=== PATIENT | male | born 1935 | race Caucasian/White ===

== ENCOUNTER 2024-01-24 14:19 | Emergency (ER) | payer OTHER, SELFPAY ==
[2024-01-24 14:31] VITALS: BP 188/88
[2024-01-24 15:09] LABS: ALT (SGPT) 21 U/L (0-50); AST (SGOT) 28 U/L (17-59); Albumin 4.5 g/dl (3.5-5.0); Alkaline Phosphatase 77 U/L (38-126); Blood Urea Nitrogen 21 mg/dl (9-20); Calcium 9.5 mg/dl (8.4-10.2); Carbon Dioxide 26 mmol/L (22-30); Chloride 108 mmol/L (98-107); Glucose 106 mg/dl (70-99); Potassium 4.4 mmol/L (3.5-5.1); Sodium 137 mmol/L (135-145); Total Bilirubin 1.3 mg/dl (0.2-1.3); Total Protein 7.2 g/dl (6.3-8.2); eGFR > 60.00
[2024-01-24 15:26] LABS: Troponin I 0.014 ng/ml
[2024-01-24 16:27] VITALS: BP 181/81
[2024-01-24 16:43] LABS: % Basophils 0.7 % (0-2); % Eosinophils 2.1 % (0-6); % Immature Granulocytes 0.3 % (0-0.5); % Lymphocytes 24.8 % (20.5-51.1); % Monocytes 11.6 % (1.7-9.3); % Neutrophils 60.5 % (42.2-75.2); Absolute Eosinophils 0.1 10^3/uL (0-0.7); Absolute Lymphocytes 1.4 10^3/uL (1.2-3.4); Absolute Monocytes 0.7 10^3/uL (0.1-0.6); Absolute Neutrophils 3.5 10^3/uL (1.4-6.5); Hematocrit 44.2 % (39.0-52.0); Hemoglobin 15.8 g/dL (13.0-18.0); Mean Corp Hgb Conc. 35.7 g/dL (33.0-37.0); Mean Corpuscular Hgb 32.8 pg (27.0-31.0); Mean Corpuscular Volume 91.9 fL (80.0-94.0); Mean Platelet Volume 11.5 fL (7.4-10.4); Nucleated Red Blood Cells % 0 % (-); Platelet Count 109 10^3/uL (130-400); Red Blood Cell Count 4.81 10^6/uL (4.70-6.10); Red Cell Dist. Width 12.5 % (11.5-14.5); White Blood Cell Count 5.8 10^3/uL (4.8-10.8)
[2024-01-24 16:47] LABS: INR 3.08; PT 31.8 Sec (11.4-14.6)
[2024-01-24 17:00] VITALS: BP 170/82
[2024-01-24 17:30] VITALS: BP 165/81
--- NOTE | 2024-01-24 17:30 | ED.GENMED ---
History of Present Illness
General
Chief Complaint: Chest Pain
Source: patient and spouse
Exam Limitations: none
Time Seen by Provider: 01/24/24 16:35
Nursing documentation reviewed up to this point in time: agreed with
Travel History
Have you had any contact with someone who has COVID-19?: No
Do you have any symptoms of coronavirus? Fever > 100 degrees, chills, cough, shortness of breath, sore throat, loss of taste or smell, muscle aches, or headache?: No
History of Present Illness
History of Present Illness:
88-year-old male with a past medical history of hypertension, hyperlipidemia, CAD status post CABG (15 years ago [place]), PE on Coumadin who presents to the emergency room for evaluation of chest pain. Patient reports onset of symptoms 3 to 4
days ago they have been intermittent since that time. He reports that there has been no exertional component he says he does not notice it with exertion and only with rest. Today symptoms have been intermittent at rest he says 3-4 episodes this
afternoon. He is currently chest pain-free at time my assessment. He describes dull sometimes burning sensation in the left chest radiates towards left arm. He denies any associated shortness of breath. Denies any dizziness. Denies any
palpitations. Denies any clamminess, nausea, vomiting, diaphoresis. He reports he is also noticed that his blood pressure has been running higher than usual over the past few days despite compliance with his medications.
Past History
Past History
ED Past Medical History: CAD, GERD, HTN, Hypercholesterolemia and Other (hiatal hernia, PE)
ED Past Surgical History: Cardiac (CABG 2012), Orthopedic (Lumbar fusion), Urological (Prostatectomy) and Other (Mouth growth removed, esophageal procedure to fix a tear)
Patient has exhibited threatening behavior?: No
PSI?: No
Social History
Tobacco: Non-smoker
Alcohol: None
Drug: None
Personal:
Living: with family
Employment: Retired
Family History
Family History: Hypertension
Review of Systems
Review of Systems
All Other Systems: ROS reviewed and negative except as documented in HPI and ROS
Constitutional: Denies fever or chills
EENT: Denies sore throat or runny nose
Respiratory: Denies cough or trouble breathing
Cardiac: Reports chest pain; Denies diaphoresis or palpitations
ABD/GI: Denies abdominal pain, nausea or vomiting
: Denies flank pain
Musculoskeletal: Denies neck pain or back pain
Neurological: Denies dizzy, headache, weakness or numbness
Phy Exam
Physical Exam
Physical Exam:
General: Awake, alert, oriented x3; no acute distress
Head: Normocephalic, atraumatic
Eyes: Conjunctiva normal, sclera anicteric
Throat: Airway intact, handling secretions
Neck: Trachea midline, supple without meningismus
Lungs: Clear to auscultation bilaterally, no wheezing, rales, rhonchi
Heart: Regular rate and rhythm, no murmurs, gallops, or rubs
Abd: Soft, non distended, nontender
Neuro: Cranial nerves grossly intact, speech fluid
Skin: no rash
Extremities: No edema in extremities, equal pulses in all extremities
Scores
Heart Failure Risk
Heart Failure Risk Score: Not Applicable
Heart Score for Chest Pain Patients
STEMI patient?: No
History: Moderately Suspicious
ECG: Normal
Age: >/= 65 years
Risk Factors: >/= 3 Risk Factors or History of CAD
Troponin: </= Normal Limit
Heart Score for Chest Pain Patients: 5
Heart Score Risk: 20.3% MACE over next 6 weeks
Withdrawal Assessment of Alcohol
Withdrawal Assessment Completed?: Not applicable
Course
Orders/Labs/Results
Orders:
Orders
01/24/24
Electrocardiogram (*1) Stat
Comment: ALREADY DONE
01/24/24 14:20
Electrocardiogram (*1) Urgent
Reason for Study: Chest Pain
EKG- Treatment ONCE
01/24/24 14:43
Comprehensive Metabolic Panel Urgent
Troponin I Urgent
01/24/24 16:25
Complete Blood Count/With Diff Urgent
Prothrombin Time Urgent
01/24/24 16:41
Electrocardiogram (*1) Urgent
Reason for Study: Chest Pain
EKG- Treatment ONCE
01/24/24 17:06
CR Chest - 2 Views Urgent
Comment:
Reason For Exam: cp
01/24/24 17:27
CARDIOLOGY CONSULT Urgent
Consulting Provider: Gabe Mathew
Was physician already notified: Yes
01/24/24 17:54
Troponin I Urgent
Abnormal Lab Results
01/24/2418
14:43 16:25
MCH 32.8 H pg
(27.0-31.0)
Plt Count 109 L 10^3/uL
(130-400)
MPV 11.5 H fL
(7.4-10.4)
Absolute Monos (auto) 0.7 H 10^3/uL
(0.1-0.6)
Monocytes % 11.6 H %
(1.7-9.3)
PT 31.8 H Sec
(11.4-14.6)
Chloride 108 H mmol/L
(98-107)
BUN 21 H mg/dl
(9-20)
Glucose 106 H mg/dl
(70-99)
01/24/24 16:25
01/24/24 14:43
Vital Signs
Initial and Last Documented VS:
Initial Vital Signs
Temp Pulse Resp BP Pulse Ox
36.4 C 58 18 188/88 98
03/18/24 14:31 01/24/24 14:31 01/24/24 14:31 01/24/24 14:31 01/24/24 14:31
Last Documented Vital Signs
Temp Pulse Resp BP Pulse Ox
36.4 C 51 16 165/81 99
01/24/24 14:31 01/24/24 17:30 01/24/24 16:27 01/24/24 17:30 01/24/24 17:15
MDM/Problems Addressed
Differential Diagnosis Includes:
ACS/angina, GERD, costochondritis, PE unlikely patient on Coumadin, very low clinical suspicion for acute aortic syndrome despite his hypertension
MDM/Problems Addressed:
88-year-old male with history as above presents for evaluation of chest pain intermittently over the past 3 to 4 days. He is hypertensive but vital signs otherwise normal. EKG shows no STEMI. Exam as above. Plan to place an IV check labs
including CBC and CMP, troponin, INR. Check chest x-ray. Monitor closely reassess after the above.
Labs reviewed: CBC unremarkable, CMP no clinically significant maladies. Troponin negative x 1�repeat pending. HEART score 5.
Repeat troponin negative. Patient has remained chest pain-free. Blood pressure improved without intervention. Case discussed with cardiology�with history of CAD admit to their service with consideration for stress versus cardiac catheterization
tomorrow. I had a long discussion with the patient and explained the recommendation. He is adamant that he does not want to stay in the hospital prefers to go home and follow-up as an outpatient he will return if he feels the symptoms are getting
worse. I did explain concern for potentially worsening anginal symptoms and that these could progress to acute [place]. He indicated understanding says that he prefers to go home and follow-up outpatient. He did assure me that if his symptoms are
worsening or persistent he will return immediately to the emergency room but otherwise we will touch base with his cardiology team tomorrow. Using shared decision making we will discharge with close cardiology follow-up and strict return
precautions in keeping with his wishes.
Chronic conditions affecting care:
CAD
Acute Exacerbation and/or Progression of Chronic Illness:
Acutely hypertensive
*Radiology
Radiology exam reviewed: preliminary read by ED provider and radiology read reviewed
*Pulse Oximetry
Patient hypoxic: no
*EKG
Interpreted by ED Provider?: Yes
Heart Rate: 52
Rate: bradycardiac
Rhythm: sinus
[place]: left axis deviation
Interval: normal interval
QRS Pattern: normal QRS
Ischemia: no ischemia
*Critical Care Note
Total Time (30-74mins, 75-104mins- exclusive of procedures): Not Applicable
Data Reviewed
Source: patient
Patient Management
Discussion with other providers: Property Specialist (Discussed with cardiology)
Escalation/DeEscalation of care consider admission/obs:
Recommended admission but patient prefers discharge�using shared decision making he was discharged in keeping with his wishes
ED Attending Note
-
Portions of this chart may have been created with voice recognition software.� Occasional wrong word or��sound alike� substitutions may have occurred due to the inherent limitations of voice recognition software.
Discharge Plan
Departure
Patient Disposition: Home (Routine Discharge)
Date of Disposition: 01/24/24
Time of Disposition: 19:30
Patient with high blood pressure during this ER visit?: Yes
Discharge Problem:
Chest pain, Hypertension
Instructions: High Blood Pressure (DC), Chest Pain CBC Follow Up
Prescriptions:
No Action
TheraTears 1 EACH dropperette
1 drp BOTH EYES BIDPRN PRN (Reason: dryness)
nitroglycerin 0.4 MG tablet, sublingual
0.4 mg sublingual [id number] PRN (Reason: chest pain ) Qty: 25 3RF
atorvastatin [Lipitor] 20 MG tablet
20 mg PO HS
acetaminophen [Tylenol Extra Strength] 500 MG tablet
500 mg PO Q6HPRN PRN (Reason: mild pain)
warfarin [Jantoven] 5 MG tablet
5 mg PO SUTUTHSA
Probiotic (B. coagulans) 1 EACH tablet,chewable
2 ea PO DAILY@1700 PRN (Reason: Supplement)
warfarin [Jantoven] 2.5 MG tablet
2.5 mg PO MOWEFR
losartan 100 MG tablet
100 mg PO DAILY
pantoprazole 40 MG tablet,delayed release (DR/EC)
40 mg PO DAILY Qty: 0 0RF
Referrals:
Paul Desir MD [Family Provider] -
Nasir Small MD [Active] - Follow up in 2-3 days
Activity Restrictions/Additional Instructions:
IF YOU FEEL YOUR CHEST PAIN IS WORSENING, BECOMING MORE SEVERE OR LASTING LONGER, OR IF YOU DEVELOP NEW SYMPTOMS INCLUDING SHORTNESS OF BREATH, DIZZINESS, RACING HEART, OR ANY OTHER SYMPTOMS THAT CONCERN YOU, YOU MUST IMMEDIATELY RETURN TO THE
EMERGENCY ROOM. IF YOU DO NOT HEAR FROM YOUR CARDIOLOGY TEAM BY TOMORROW MORNING, PLEASE CALL TO CONFIRM YOUR FOLLOW UP APPOINTMENT.
Thank you for visiting the Emergency Department at [facility].
1. Please schedule a follow up appointment as directed. Call first thing tomorrow morning to make an appointment.
2. If indicated, please take your medications as instructed and indicated on discharge paperwork.
3. If any of your symptoms do not improve, or persist, or become more severe within 6-12 hours, please return to the emergency department for further care.
4. Please return to the emergency department if you develop a headache, neck pain/stiffness, fever greater than 100.4F, chest pain, shortness of breath, persistent nausea, vomiting, slurred speech, difficulty walking, numbness/tingling, weakness,
signs of infection or any other symptoms that are worrisome to you.
Please call [phone] if you have any questions.
Interventions
Interventions:
*Risk Screen - Suicide Last Done: 01/24/24 14:33
*General Assessment Last Done: 01/24/24 14:33
*Neglect/Abuse Screening Last Done: 01/24/24 14:33
ED- Fall Risk Assessment Last Done: 01/24/24 16:30
ED- Cardiac Assessment Last Done: 01/24/24 16:30
ED- Neurological Assessment Last Done: 01/24/24 16:30
ED- Pulmonary Assessment Last Done: 01/24/24 16:30
[2024-01-24 18:32] LABS: Troponin I < 0.012 ng/ml
[2024-01-24 20:08] VITALS: BP 158/84
== END 2024-01-24 20:09 | disposition home or self-care (01) ==
LOC: EMR 14:19
PROVIDERS: Emergency Medicine; CONSULT PHYSICIAN Internal Medicine; EMERGENCY PHYSICIAN Emergency Medicine; FAMILY PHYSICIAN Family Medicine
DX: R07.9 Chest pain, unspecified (principal); I10 Essential (primary) hypertension; I25.10 Atherosclerotic heart disease of native coronary artery without angina pectoris; Z95.1 Presence of aortocoronary bypass graft; Z79.01 Long term (current) use of anticoagulants
CPT/HCPCS: 99285; 71046; 80053; 84484; 85025; 85610; 93005

== ENCOUNTER → 2024-01-27 06:54 | Outpatient (REF) | payer OTHER, SELFPAY ==
[2024-01-27] MEDS: LEXISCAN 0.400000000000000022 MG IV (08:51)
[2024-01-27] MEDS: FLUSH (NSS) 1 FLUSH IV (08:51)
== END ==
LOC: RCS 06:54
PROVIDERS: ATTENDING PHYSICIAN Nurse Practitioner; FAMILY PHYSICIAN Family Medicine
DX: I25.810 Atherosclerosis of coronary artery bypass graft(s) without angina pectoris (principal); I25.10 Atherosclerotic heart disease of native coronary artery without angina pectoris; R07.89 Other chest pain
CPT/HCPCS: 78452; 93017; A9500; J2785

== ENCOUNTER 2024-02-06 11:30 | Observation (INO) | payer OTHER, SELFPAY ==
[2024-02-06] VITALS (13 sets, daily range): BP systolic 135–186; BP diastolic 71–94
--- NOTE | 2024-02-06 06:46 | ED.GENMED ---
History of Present Illness
General
Chief Complaint: Abdominal Symptoms
Source: patient, records and spouse
Exam Limitations: none
Time Seen by Provider: 02/06/24 06:34
Nursing documentation reviewed up to this point in time: agreed with
Travel History
Have you had any contact with someone who has COVID-19?: No
Do you have any symptoms of coronavirus? Fever > 100 degrees, chills, cough, shortness of breath, sore throat, loss of taste or smell, muscle aches, or headache?: No
History of Present Illness
History of Present Illness:
Patient is an 88-year-old male who presents to the emergency department with nausea, vomiting and diarrhea and right-sided abdominal pain. Patient states he had some of it about a week ago but then last night became worse. Patient has a headache
as well as twinges in his chest and minimal shortness of breath. Patient has a history of a bowel obstruction secondary to adhesions with repair approximately 3 years ago. Patient states he is nauseous when he eats anything he vomits it. Stools
liquidy. Patient denies fever. Patient was seen 2 weeks ago for chest pain and subsequently had a nuclear stress test which had moderate risk. Patient's had bypass surgery in the past. Patient is scheduled for cardiac catheterization.
Past History
Past History
ED Past Medical History: CAD, GERD, HTN, Hypercholesterolemia and Other (hiatal hernia, PE)
ED Past Surgical History: Cardiac (CABG 2012), Orthopedic (Lumbar fusion), Urological (Prostatectomy) and Other (Mouth growth removed, esophageal procedure to fix a tear)
Patient has exhibited threatening behavior?: No
PSI?: No
Social History
Tobacco: Non-smoker
Alcohol: None
Drug: None
Personal:
Living: with family
Employment: Retired
Family History
Family History: Hypertension
Review of Systems
Review of Systems
All Other Systems: ROS reviewed and negative except as documented in HPI and ROS
Constitutional: Reports fatigue and chills; Denies fever
EENT: Reports no symptoms
Respiratory: Reports trouble breathing
Cardiac: Reports chest pain and diaphoresis; Denies palpitations or syncope
ABD/GI: Reports abdominal pain, nausea, vomiting, diarrhea and anorexia
: Reports no symptoms
Musculoskeletal: Reports no symptoms
Skin: Reports no symptoms
Neurological: Reports no symptoms
Hematologic/Lymphatic: Reports no symptoms
Phy Exam
Physical Exam
Physical Exam:
Physical Exam
General: significant distress, alert and appropriate, well nourished, dry mucous membranes
HENT: Normocephalic, supple with no lymphadenopathy, no thyromegaly
Eyes: Clear sclera, conjuctiva without injection
Heart: Regular rhythm and rate. No S3, S4. No murmur. No NVD
Lungs: No respiratory distress, no stridor, lung sounds clear and equal bilaterally, chest wall symmetrical and nontender
Abdomen: Soft, right-sided abdominal tenderness without guarding or rebound, no organomegaly, no CVA tenderness, BS hyperactive and high-pitched
Neuro: Alert and oriented x 3, CN II - XII intact, no motor focality, no cerebellar dysfunction
Skin: no rash
Psychiatric: well kept. interactive and cooperative
Extremities: No edema, cyanosis, tenderness
Course
Orders/Labs/Results
Orders:
Orders
02/06/24 06:21
Electrocardiogram (*1) Urgent
Reason for Study: Chest Pain
EKG- Treatment ONCE
02/06/24 06:44
CT Abd/Pel (IV only)-DH only Urgent
Comment:
Reason For Exam: abd pain w/ n/v
0.9% Sodium Chloride 1000 ml [Nss] 1,000 ml IV BOLUS
HYDROmorphone [Dilaudid] 1 mg IV NOW STA
Ondansetron Injectable [Zofran] 4 mg IV NOW STA
02/06/24 06:49
Complete Blood Count/With Diff Urgent
Comprehensive Metabolic Panel Urgent
Lipase Urgent
Troponin I Urgent
Abnormal Lab Results
02/06/24
06:49
MCV 94.5 H fL
(80.0-94.0)
MCH 32.3 H pg
(27.0-31.0)
Plt Count 123 L 10^3/uL
(130-400)
MPV 10.5 H fL
(7.4-10.4)
Abs Immat Gran (auto) 0.1 H 10^3/uL
(0-0.05)
Absolute Lymphs (auto) 0.4 L 10^3/uL
(1.2-3.4)
Immature Gran % 0.7 H %
(0-0.5)
Neutrophils % 83.0 H %
(42.2-75.2)
Lymphocytes % 6.3 L %
(20.5-51.1)
BUN 32 H mg/dl
(9-20)
Glucose 142 H mg/dl
(70-99)
Total Bilirubin 1.6 H mg/dl
(0.2-1.3)
Lipase 301 H U/L
(23-300)
02/06/24 06:49
02/06/24 06:49
Vital Signs
Initial and Last Documented VS:
Initial Vital Signs
Temp Pulse Resp BP Pulse Ox
98.2 F 89 22 135/86 100
02/06/24 06:22 02/06/24 06:22 02/06/24 06:22 02/06/24 06:22 02/06/24 06:22
Last Documented Vital Signs
Temp Pulse Resp BP Pulse Ox
98.2 F 73 17 173/74 94
02/06/24 06:22 02/06/24 08:45 02/06/24 08:45 02/06/24 08:29 02/06/24 08:45
*Radiology
Radiology exam reviewed: radiology read reviewed (sbo)
*Pulse Oximetry
Patient hypoxic: no
*EKG
Interpreted by ED Provider?: Yes
EKG Intrepretation Date: 02/06/24
EKG Intrepretation Time: 09:04
Interpretation: abnormal
Comparison EKG: changes noted (ST depressions inferiorly)
Heart Rate: 71
Rate: normal
Rhythm: sinus
[place]: left axis deviation
Interval: normal interval
QRS Pattern: normal QRS
Ischemia: ST depression (Inferiorly)
*Supervisor Type Bar And Segment Interpretation
Rate: normal
Interpretation: normal
Heart Rate: 70
Rhythm: sinus
*Critical Care Note
Total Time (30-74mins, 75-104mins- exclusive of procedures): Not Applicable
ED Attending Note
-
Portions of this chart may have been created with voice recognition software.� Occasional wrong word or��sound alike� substitutions may have occurred due to the inherent limitations of voice recognition software.
Discharge Plan
Departure
Patient Disposition: Admit
Date of Disposition: 02/06/24
Time of Disposition: 09:05
Admit to: Telemetry
Admit to doctor: hospitalist
Presentation/result/management discussed w/ accepting MD/DO: Hospitalist
Patient with high blood pressure during this ER visit?: Yes
Condition: Serious
Covid-19: Not Applicable
Discharge Problem:
SBO (small bowel obstruction), CAD (coronary artery disease)
Prescriptions:
No Action
TheraTears 1 EACH dropperette
1 drp BOTH EYES BIDPRN PRN (Reason: dryness)
nitroglycerin 0.4 MG tablet, sublingual
0.4 mg sublingual [id number] PRN (Reason: chest pain ) Qty: 25 3RF
atorvastatin [Lipitor] 20 MG tablet
20 mg PO HS
acetaminophen [Tylenol Extra Strength] 500 MG tablet
500 mg PO Q6HPRN PRN (Reason: mild pain)
warfarin [Jantoven] 5 MG tablet
5 mg PO SUTUTHSA
Probiotic (B. coagulans) 1 EACH tablet,chewable
2 ea PO DAILY@1700 PRN (Reason: Supplement)
warfarin [Jantoven] 2.5 MG tablet
2.5 mg PO MOWEFR
losartan 100 MG tablet
100 mg PO DAILY
pantoprazole 40 MG tablet,delayed release (DR/EC)
40 mg PO DAILY Qty: 0 0RF
Referrals:
Paul Desir MD [Family Provider] -
Interventions
Interventions:
*Risk Screen - Suicide Last Done: 02/06/24 08:49
*General Assessment Last Done: 02/06/24 06:22
*Neglect/Abuse Screening Last Done: 02/06/24 08:49
ED- Fall Risk Assessment Last Done: 02/06/24 08:49
*ED COVID-19 Vaccine History Last Done: 02/06/24 06:22
XY-Gysugf-Yrghpnwhrd Assessment Last Done: 02/06/24 08:49
Discharge Date and Time
Print Language: LATVIAN
[2024-02-06] MEDS: ZOFRAN 4 MG IV ×2 (07:02→20:35)
[2024-02-06] MEDS: DILAUDID 1 MG IV (07:04)
[2024-02-06] MEDS: NSS 1000 IV ×2 (07:05→16:45)
[2024-02-06 07:13] LABS: % Basophils 0.3 % (0-2); % Eosinophils 0.6 % (0-6); % Immature Granulocytes 0.7 % (0-0.5); % Lymphocytes 6.3 % (20.5-51.1); % Monocytes 9.1 % (1.7-9.3); Absolute Immature Granulocytes 0.1 10^3/uL (0-0.05); Absolute Lymphocytes 0.4 10^3/uL (1.2-3.4); Absolute Monocytes 0.6 10^3/uL (0.1-0.6); Absolute Neutrophils 5.7 10^3/uL (1.4-6.5); Hematocrit 51.5 % (39.0-52.0); Hemoglobin 17.6 g/dL (13.0-18.0); Mean Corp Hgb Conc. 34.2 g/dL (33.0-37.0); Mean Corpuscular Hgb 32.3 pg (27.0-31.0); Mean Corpuscular Volume 94.5 fL (80.0-94.0); Mean Platelet Volume 10.5 fL (7.4-10.4); Nucleated Red Blood Cells % 0 % (-); Platelet Count 123 10^3/uL (130-400); Red Blood Cell Count 5.45 10^6/uL (4.70-6.10); Red Cell Dist. Width 12.4 % (11.5-14.5); White Blood Cell Count 6.9 10^3/uL (4.8-10.8)
[2024-02-06 07:24] LABS: ALT (SGPT) 20 U/L (0-50); AST (SGOT) 30 U/L (17-59); Albumin 4.7 g/dl (3.5-5.0); Alkaline Phosphatase 79 U/L (38-126); Blood Urea Nitrogen 32 mg/dl (9-20); Calcium 10.1 mg/dl (8.4-10.2); Carbon Dioxide 24 mmol/L (22-30); Chloride 106 mmol/L (98-107); Glucose 142 mg/dl (70-99); Lipase 301 U/L (23-300); Potassium 3.9 mmol/L (3.5-5.1); Sodium 139 mmol/L (135-145); Total Bilirubin 1.6 mg/dl (0.2-1.3); Total Protein 7.4 g/dl (6.3-8.2); eGFR > 60.00
[2024-02-06 07:28] LABS: Troponin I < 0.012 ng/ml
--- NOTE | 2024-02-06 10:24 | HPS.HSE ---
Family Physician
-
Family Physician: Paul Desir
Chief Complaint
-
Abdominal pain, chest pain
History of Present Illness
88 y/o male with past medical history of Schatzki's ring status post EGD dilation in May 2023, gastroparesis, non-intentional weight loss, dysphagia, esophageal stricture with last dilation 05/2023, CAD with [place] and CABG 2012, PE in 2019 on warfarin
on chronic Coumadin, HTN, HLD, prior SBO's with SBO requiring surgery 03/2021 with ex lap/sbr, SBO with lysis of adhesion, left hernia repair 2020, presenting with nausea, abdominal pain and green diarrhea. Patient also reported he had chest pain a
couple of weeks ago, for which he had a stress test which showed moderate risk nuclear stress test and he was supposed to get a cardiac cath. Patient reported continued unintentional weight loss. He denied current active chest pain but has recently
been worked up for chest pain. ROS was positive for weight loss and slight headache.
Medical History
Past Medical History
Past Medical History: Reports Other (As per HPI above)
Past Surgical History: Reports Cardiac, Orthopedic, Urological and Other (Lysis of Adhesions after SBO. Mouth growth removed, esophageal procedure to fix a tear.)
Social History
Tobacco: Non-smoker
Alcohol: Occasional
Drug: None
Family History
Family History: CAD
Allergies / Home Medications
Allergies reflects when Allergies were last updated in [employer].
Home Medications with original date entered in [employer]
Allergy/Medication List:
Allergies
Allergy/AdvReac Type Severity Reaction Status Date / Time
promethazine [From Phenergan] AdvReac hallucinati Verified 01/24/24 14:31
ons
Home Medications
atorvastatin 20 mg tablet (Lipitor) 10 mg PO HS High cholesterol 03/27/22
warfarin 5 mg tablet (Jantoven) 5 mg PO SUTUTHSA Blood clot prevention/tx 03/27/22
warfarin 2.5 mg tablet (Jantoven) 2.5 mg PO MOWEFR Blood clot prevention/tx 03/28/22
losartan 100 mg tablet 100 mg PO DAILY Blood Pressure 05/31/23
pantoprazole 40 mg tablet,delayed release 40 mg PO DAILY Gastrointestinal Issue #0 tabs 06/04/23
Review of Systems
-
A 12 point ROS was completed and negative except as noted: Yes
Physical Exam
Vital Signs
Vital Signs
Temp Pulse Resp BP Pulse Ox
98.2 F 73 17 173/74 94
02/06/24 06:22 02/06/24 08:45 02/06/24 08:45 02/06/24 08:29 02/06/24 08:45
Physical Exam
General: No Apparent Distress
HEENT: NormoCephalic and Moist mucous membranes
Respiratory: Clear
Cardiac: S1/S2 and Regular Rhythm
GI: Soft, Normal Bowel Sounds and Tender
Musculoskeletal: No Cyanosis and No Edema
Skin: Warm and Dry
Neuro: Awake, Alert and AO x 3
Psych: Calm and Intact Judgment/Insight
Laboratory Results
-
02/06/24 06:49
02/06/24 06:49
Laboratory Results
Total Bilirubin 1.6 mg/dl (0.2-1.3) H 02/06/24 06:49
AST 30 U/L (17-59) 02/06/24 06:49
ALT 20 U/L (0-50) 02/06/24 06:49
Alkaline Phosphatase 79 U/L (38-126) 02/06/24 06:49
Troponin I < 0.012 ng/ml 02/06/24 06:49
Lipase 301 U/L (23-300) H 02/06/24 06:49
Impression/Plan
-
Assessment/Plan
Presentation with nausea/vomiting/abdominal pain/bloating/diarrhea
History of Small Bowel Obstruction status post Lysis of Adhesions
Gastroenteritis/ileus versus small bowel obstruction
History of Gastroparesis
-Surgery Consulted, recommendations appreciated
-Check trops; ST depression on EKG
-Consulted cardiology, recommendations appreciated
-Hold Warfarin as per surgery
Recent Chest Pain a Few Weeks Ago
-Stress test was done had a moderate risk nuclear stress test and he is scheduled for cardiac catheterization
-Consulted cardiology, recommendations appreciated
Nonintentional Weight Loss, Abdominal Pain, Dysphagia in May 2023 [facility] Hospitalization
-Multifactorial
-Will need further workup outpatient
Additional History:
Eosinophilic Esophagitis
Schatzki's ring status post EGD dilation in May 2023
Weight loss and abdominal discomfort.
History of pulmonary embolism in 2019 on Chronic Coumadin - Check INR
Essential hypertension.
Hyperlipidemia.
Coronary artery disease, status post coronary bypass grafting.
DVT PPx: SCDs (patient refused any Heparin -- but this should be re-evaluated daily)
Code Status: Full Code
--- NOTE | 2024-02-06 13:20 | CON.GS ---
Addendum entered and electronically signed by Teofilo Concepcion MD 02/06/24 14:01:
I saw and examined the patient.
The Capture Manager's note was reviewed and I agree with the note.
Comment: 88M with NVD for over a week a/w abd pain. Abd pain is not localized. He is passing flatus with the liquid stools. He has a known hx of gastroparesis. He also has a hx of SBO requiring ex-lap SBR about 3 years ago. Also had presented in
the past week with left chest pain and is currently undergoing a cardiac work-up outpt. He is on warfarin. Exam soft, mildly distended, nt, he reports nausea with palp to LUQ. No leukocytosis. CT notable for severe gastric distention, proximal bowel
is normal but distally it is dilated, mosis is patent, no clear transition point, air and stool in the colon down to the rectum.
Plan for admission and monitoring, rec NGT/NPO/IVF. Consider PO contrast study in the next 24-48 hrs. Hold warfarin but no need for urgent reversal. Suspect gastroenteritis w/ gastroparesis, less likely pSBO. Will follow
Original Note:
Medical History
-
History of Present Illness:
This is an 88 yo male with h/o gastroparesis, esophageal stricture with last dilation 05/2023, CAD with [place] and CABG 2012 (recent stress testing without abnormality), PE in 2019 on warfarin, prior SBO's with SBO requiring surgery 03/2021 with ex
lap/sbr, left hernia repair 2020, presenting with nausea and vomiting with abdominal pain. He notes pain to the right side of the abdomen with both diarrhea and vomiting at home. He had nausea intermittently for about one week, but now with vomiting
as well. He has had 6 liquid stools today. On exam, his abdomen with very mild distention with mild tenderness to the upper abdomens. He notes he is still quite nauseated. He denies fevers or chills. He does report chest pain as well and has been
following with cardiologic for work up.
Past Medical History
Past Medical History: CAD, GERD, HTN, Hypercholesterolemia and Other (hiatal hernia, PE, gastroperesis, SBO, eosinophilic esophagitis)
Past Surgical History: Bowel Resection (dx lap with ex lap with timothy, sbr (03/2021 Dr Concepcion)), Cardiac (CABG 2012), Hernia Repair (left indirect inguinal 2020 (lap with mesh) by Dr. Noble), Orthopedic (lumbar fusion), Urological (prostatectomy) and
Other (05/2023 EGD with dilatation of Schatzki's ring, follow EGD without abnormality 10/2023)
Social History
Tobacco: Non-Smoker
Alcohol: None
Family History
Family History: Reviewed & Not Pertinent
Allergies / Home Medications
Allergy/AdvReac Type Severity Reaction Status Date / Time
promethazine [From Phenergan] AdvReac hallucinati Verified 01/24/24 14:31
ons
�Medication �Instructions �Recorded �Confirmed �Type
atorvastatin 20 mg tablet (Lipitor) 10 mg PO HS High cholesterol 03/27/22 02/06/24 History
warfarin 5 mg tablet (Jantoven) 5 mg PO SUTUTHSA Blood clot 03/27/22 02/06/24 History
prevention/tx
warfarin 2.5 mg tablet (Jantoven) 2.5 mg PO MOWEFR Blood clot 03/28/22 02/06/24 History
prevention/tx
losartan 100 mg tablet 100 mg PO DAILY Blood Pressure 05/31/23 02/06/24 History
pantoprazole 40 mg tablet,delayed 40 mg PO DAILY Gastrointestinal 06/04/23 02/06/24 Rx
release Issue #0 tabs
Review of Systems
-
History Source: Patient
All other systems: Negative unless noted
A 10 point review of systems was completed, and was negative except as per HPI.
Physical Exam
Vital Signs
Temp Pulse Resp BP Pulse Ox
98.2 F 73 17 173/74 94
02/06/24 06:22 02/06/24 08:45 02/06/24 08:45 02/06/24 08:29 02/06/24 08:45
02/05/24 02/06/24 02/07/24
06:59 06:59 06:59
Actual Weight 68.5 kg
Lab Results
02/06/24 06:49
02/06/24 06:49
WBC 6.9 10^3/uL (4.8-10.8) 02/06/24 06:49
Hgb 17.6 g/dL (13.0-18.0) 02/06/24 06:49
Hct 51.5 % (39.0-52.0) 02/06/24 06:49
Plt Count 123 10^3/uL (130-400) L 02/06/24 06:49
Abs Immat Gran (auto) 0.1 10^3/uL (0-0.05) H 02/06/24 06:49
Neutrophils % 83.0 % (42.2-75.2) H 02/06/24 06:49
Physical Exam
General: Well Developed; Negative Comfortable
HEENT: Normocephalic
Respiratory: Non Labored Respirations
GI: Soft, Tender (upper abdomen-mild) and Distended (very mild)
Skin: Warm
Neuro: Awake, Alert and AO x 3
Psych: Calm
Data Reviewed
-
CT Scan: Image Personally Visualized and interpreted, Report Reviewed by me, Discussed with Physician and Discussed with Patient
Labs: Labs Reviewed by me, Discussed with Physician and Discussed with Patient
Old Records: Reviewed
Assessment / Plan
-
88 yo male with h/o gastroparesis, esophageal stricture with last dilation 05/2023, CAD with [place] and CABG 2012 (recent stress testing without abnormality), PE in 2019 on warfarin, prior SBO's with SBO requiring surgery 03/2021 with ex lap/sbr, left
hernia repair 2020, presenting with Nausea x1 week with onset of vomiting, diarrhea and upper abdominal pain since last night. Of note, he has been having intermittent chest pain and has been following with cardiology as an OP as well. CT imaging
reviewed with fluid distention of the stomach, duodenum, and and proximal to mid small bowel. Significant gastric distention noted. Anastomosis site from prior surgery patent. No clear transition point (eval somewhat limited d/t lack of PO
contrast). No pneumoperitoneum. No leukocytosis. Suspect gastroenteritis superimposed on baseline decreased motility (gastroparesis) less likely pSBO.
No plans for emergent surgery, will follow with supportive measures
Plan:
Place NGT for decompression
NPO with ice chips for comfort
Analgesics/Antiemetics prn
Cardiology eval pending
--- NOTE | 2024-02-06 15:00 | PTCARENOTE ---
Rec'd Pt from ED, A,A+O, denies pain. NGT in place, put to low intermittant suction as ordered, placement checked, irrigated with 30 ml tap water as ordered, draining light brown/rust colored drainage. Pt denies nausea at present
[2024-02-06 16:54] LABS: PT 19.8 Sec (11.4-14.6)
--- NOTE | 2024-02-06 17:00 | CON.CAR ---
Consultation
Consultation Request
Date/Time Consultation Requested: 02/06/2024 1107 hrs.
Date/Time Consultation Performed: 02/06/2024 at 1600 hrs.
Requesting Provider: Graham Hicks MD
Performing Provider: Jhonny Ch MD
Reason for Consultation: Coronary artery disease in a patient with unusual chest pain
Medical History
-
Chief Complaint: Chest pain and abdominal pain with nausea and vomiting
History of Present Illness:
PCP Paul Desir
Neurology Technologist: Nasir Small
Thank you for having us see Viet Ramirez who is an 88-year-old gentleman with established status CAD status post prior bypass grafting. He presents for the evaluation of abdominal and chest symptoms. Both symptoms been present for about 3 weeks.
He has a constant chest heaviness with frequent waves of twinges from the left central to the left lateral chest from 5 to 30 minutes. His symptoms subside when he is physically active. For evaluation of the symptoms he has had a negative Yvette
stress test. His GI symptoms of abdominal pain nausea vomiting have been present for the same period of time. He does pass gas and have liquid stools. Surgery notes that his CT scan is notable for severe gastric distention and an NG tube was
placed. Approximately 3 years ago he had somewhat similar symptoms and had a small bowel obstruction and required exploratory laparotomy with small bowel resection.
Past Medical History
Past Medical History: CAD, HTN, Hypercholesterolemia, [place] and Other (Pulmonary embolism 10/2020)
Past Surgical History: Bowel Resection and Cardiac (CABG)
Social History
Tobacco: Non-Smoker
Employment: Retired
Family History
Family History: Other (Father had coronary artery disease and pacemaker but not at a premature age.)
Allergies / Home Medications
Allergy/AdvReac Type Severity Reaction Status Date / Time
promethazine [From Phenergan] AdvReac hallucinati Verified 01/24/24 14:31
ons
�Medication �Instructions �Recorded �Confirmed �Type
atorvastatin 20 mg tablet (Lipitor) 10 mg PO HS High cholesterol 03/27/22 02/06/24 History
warfarin 5 mg tablet (Jantoven) 5 mg PO SUTUTHSA Blood clot 03/27/22 02/06/24 History
prevention/tx
warfarin 2.5 mg tablet (Jantoven) 2.5 mg PO SADIAWEFR Blood clot 03/28/22 02/06/24 History
prevention/tx
losartan 100 mg tablet 100 mg PO DAILY Blood Pressure 05/31/23 02/06/24 History
pantoprazole 40 mg tablet,delayed 40 mg PO DAILY Gastrointestinal 06/04/23 02/06/24 Rx
release Issue #0 tabs
Review of Systems
-
History Source: Patient
Constitutional: Fatigue
EENT: No Symptoms
Respiratory: No Symptoms
Cardiac: Chest Pain
Abdomen/GI: Abdominal Pain, Nausea, Vomiting and Diarrhea
Musculoskeletal: Joint Pain
Physical Exam
Vital Signs
Temp Pulse Resp BP Pulse Ox
97.7 F 87 16 146/94 98
02/06/24 15:10 02/06/24 15:45 02/06/24 15:10 02/06/24 15:25 02/06/24 15:10
Lab Results
02/06/24 06:49
02/06/24 06:49
Troponin I < 0.012 ng/ml 02/06/24 06:49
Physical Exam
General: Well Developed and Well Nourished
HEENT: Normocephalic and Anicteric
Respiratory: Clear
Cardiac: S1/S2, Regular Rhythm and Other (No murmur)
GI: Soft
Musculoskeletal: No Clubbing and No Cyanosis
Skin: Warm and Dry
Neuro: AO x 3
Psych: Calm
Impression / Plan
-
Chest pain: Prolonged and atypical. Troponins normal. Mostly rest symptoms. Cardiac catheterization in March 2022 found patent vein grafts and an underfilled MCCLOUD that did not require revascularization for rest pain and not felt to represent
angina. Stress test last week is normal. I do not think this chest pain is related to CAD but I know Dr. Small was concerned and was planning on offering coronary angiography. Now that he has declared more impressive gastrointestinal
abnormalities based on symptoms and CT scan perhaps we should defer and allow treatment of his GI process which may resolve his chest symptoms. Both symptoms have been present for the same period of time. Dr. Samll will be able to evaluate the
patient to make a decision tomorrow. The patient is not currently on antianginal therapy other than as needed nitroglycerin at home. I will defer to Dr. Small whether antianginal therapy should be instituted. I do not think antianginal
therapies will be effective for this chest pain syndrome.
Chronic warfarin: This is for prior pulmonary embolism and not for cardiac reasons.
Hypertension: Stable.
Mixed hyperlipidemia: Stable. Continue statin
Data Reviewed
-
EKG: Tracing Personally Visualized and interpreted (EKG 02/06/2024 NSR 71 bpm left axis deviation nonspecific ST depression inferiorly and laterally. ST depression is more pronounced than on 01/24/2024)
Radiology: Image Personally Visualized and interpreted (CT abdomen pelvis impression is gastroenteritis/ileus versus small bowel obstruction) and Other (Yvette nuclear stress test 01/27/2024: Normal perfusion)
Ultrasound: Other (Echo 01/27/2023 LVEF 50-55%, mild basal inferior hypokinesis mild AR ascending aorta 4.3 cm)
Medical Tests (Nuc Med, Echo etc): Other (Cath 03/30/2022: Severe [place] CAD with widely patent vein graft. MCCLOUD with competitive flow rest symptoms were not felt to be angina and revascularization was not considered fuentes. Dr. Hendrix report
reviewed)
Total Time Spent with Patient (in minutes): 78 min: Record review, H&P performance, prepare document
[2024-02-06 17:10] LABS: Troponin I < 0.012 ng/ml
--- NOTE | 2024-02-06 20:53 | PTCARENOTE ---
Assumed care. Patient complaining of abdominal fullness and nausea. Patient feels like the tube is not draining. Flushed tube, advanced it slightly, checked placement. Assisted to commode, manzano watery liquid stool, NGT draining dark brown emesis and
now having some relief. Zofran IV given for nausea. He appears more comfortable, less anxious, eyes closed, lights dimmed, call nelson in reach
--- NOTE | 2024-02-06 21:37 | PTCARENOTE ---
Patient refused his troponin to be drawn
[2024-02-06] MEDS: LIPITOR PO (23:04)
--- NOTE | 2024-02-07 00:19 | PTCARENOTE ---
Patient resting comfortable, less anxiety. NGT to LIS right nares. Abdomen soft, nausea resolved. Call nelson in reach
[2024-02-07 02:35] VITALS: BP 150/80
[2024-02-07 03:07] LABS: % Basophils 0.4 % (0-2); % Eosinophils 0.4 % (0-6); % Immature Granulocytes 0.2 % (0-0.5); % Monocytes 13.8 % (1.7-9.3); % Neutrophils 70.2 % (42.2-75.2); Absolute Lymphocytes 0.7 10^3/uL (1.2-3.4); Absolute Monocytes 0.7 10^3/uL (0.1-0.6); Absolute Neutrophils 3.4 10^3/uL (1.4-6.5); Hematocrit 43.6 % (39.0-52.0); Hemoglobin 15.4 g/dL (13.0-18.0); Mean Corp Hgb Conc. 35.3 g/dL (33.0-37.0); Mean Corpuscular Volume 93.4 fL (80.0-94.0); Mean Platelet Volume 10.6 fL (7.4-10.4); Nucleated Red Blood Cells % 0 % (-); Platelet Count 103 10^3/uL (130-400); Red Blood Cell Count 4.67 10^6/uL (4.70-6.10); Red Cell Dist. Width 12.7 % (11.5-14.5); White Blood Cell Count 4.9 10^3/uL (4.8-10.8)
[2024-02-07 03:11] LABS: INR 1.88; PT 21.5 Sec (11.4-14.6)
[2024-02-07 03:27] LABS: Troponin I 0.015 ng/ml
[2024-02-07 03:41] LABS: Blood Urea Nitrogen 27 mg/dl (9-20); Carbon Dioxide 23 mmol/L (22-30); Chloride 109 mmol/L (98-107); Glucose 110 mg/dl (70-99); Magnesium 1.7 mg/dl (1.6-2.3); Potassium 3.8 mmol/L (3.5-5.1); Sodium 139 mmol/L (135-145); eGFR > 60.00
[2024-02-07] MEDS: NSS 1000 IV (06:14)
[2024-02-07 07:12] VITALS: BP 165/74
--- NOTE | 2024-02-07 07:51 | W.PN.CD ---
Addendum entered and electronically signed by Nasir Small MD 02/07/24 08:01:
coumadin for history of PE remains on hold
Original Note:
Today's Communication / Plan
-
Continue wit medical thera py for CAD and Tx of GI issues.
Impression / Plan
-
Chest pain: Prolonged and atypical. Troponins normal. Mostly rest symptoms. Cardiac catheterization in March 2022 found patent vein grafts and an underfilled MCCLOUD that did not require revascularization for rest pain and not felt to represent
angina. Stress test last week is normal.
Chronic warfarin: This is for prior pulmonary embolism and not for cardiac reasons. Witht prolonged symptoms and negative troponins it makes coronaryischemia unlikely . On the phone last week it was challenging to evalute his symptoms so cath was
discussed. However no admitted with GI issues. GI issues were may bbe exacerbating symptoms.CT with gastric and SB distention. Gastroenteritis/ileus versus small bowel obstruction.
Would not proceed with cath at this time. Continue wit medical thera py for CAD and Tx of GI issues.
Gastroenteritis/ileus versus small bowel obstruction. on CT. NG in place . Tx per GI
Mixed hyperlipidemia: Stable. Continue statin
Physical Exam
Vital Signs/Labs
Vital Signs
Temp Pulse Resp BP Pulse Ox
98.2 F 66 18 150/80 96
02/07/24 07:13 02/07/24 04:45 02/07/24 07:13 02/07/24 02:35 02/07/24 07:13
02/06/24 02/07/24 02/08/24
06:59 06:59 06:59
Actual Weight 68.5 kg
02/07/24 02:44
02/07/24 02:44
PT 21.5 Sec (11.4-14.6) H 02/07/24 02:44
INR 1.88 02/07/24 02:44
Magnesium 1.7 mg/dl (1.6-2.3) 02/07/24 02:44
LAB Results
02/06/24 02/06/24 02/06/24
06:49 16:34 21:32
Troponin I < 0.012 < 0.012 Cancelled
02/07/24
02:44
Troponin I 0.015
Physical Exam
Constitutional: No acute distress
Cardiovascular: Rhythm & rate is regular
Respiratory: Respiratory effort normal
GI: Soft
Neuro/Psych: Alert
Data Reviewed
-
Date of Service: February 07, 2024
Medical Decision Making: Reviewed Test Results
Echo: Report Reviewed by me
Medical Tests (PFT, Pathology etc): Report Reviewed by me
--- NOTE | 2024-02-07 08:39 | W.PN.GS2 ---
Today's Communication / Plan
-
SBFT study
Assessment / Plan
-
Assessment:
88M with pmh of gastroparesis, esophageal stricture with last dilation 05/2023, CAD with [place] and CABG 2012, PE in 2019 on warfarin (on hold) with nausea for over a week a/w abd pain. he presented as he developed vomiting and diarrhea as well over the
weekend. Initial CT notable for severe gastric distention, proximal bowel is normal but distally it is dilated, anastomosis is patent, no clear transition point, air and stool in the colon down to the rectum. Suspect gastroenteritis w/
gastroparesis, less likely pSBO
AFVSS
No leukocytosis
NGT with 1575 out since placement yesterday, gastric outputs currently
--Plan SBFT today
--NGT clamped for study, continue NPO
--Continue with warfarin on hold
--Medical management as per primary team
Subjective Data
-
Date of Service: February 07, 2024
Patient seen and examined at bedside with Dr. Adler. Denies n/v. Feeling a little better today but note NGT is uncomfortable.
Objective Data
-
Intake and Output
02/06/24 02/07/24 02/08/24
06:59 06:59 06:59
Intake Total 1330 / 1330
Output Total 1575 / 1575
Balance -245 / -245
Intake:
Oral fluids 120 / 120
IV fluids (Total) 1050 / 1050
NSS 1050 / 1050
Amount instilled into GI Tube ( 160 / 160
Total)
[place] 160 / 160
Output:
Gastrointestinal tube output ( 157 / 1575
Total)
[place] 800 / 800
Other:
Number of approximated LARGE 2
amounts of urine
How many times incontinent 2
MODERATE amount urine
Vital Signs
Temp Pulse Resp BP Pulse Ox
98.2 F 66 18 150/80 96
02/07/24 07:13 02/07/24 04:45 02/07/24 07:13 02/07/24 02:35 02/07/24 07:13
Lab Results
02/07/24 02:44
02/07/24 02:44
Calcium 9.0 mg/dl (8.4-10.2) 02/07/24 02:44
Magnesium 1.7 mg/dl (1.6-2.3) 02/07/24 02:44
Total Bilirubin 1.6 mg/dl (0.2-1.3) H 02/06/24 06:49
AST 30 U/L (17-59) 02/06/24 06:49
ALT 20 U/L (0-50) 02/06/24 06:49
Alkaline Phosphatase 79 U/L (38-126) 02/06/24 06:49
Total Protein 7.4 g/dl (6.3-8.2) 02/06/24 06:49
Albumin 4.7 g/dl (3.5-5.0) 02/06/24 06:49
Physical Exam
-
NAD
ABD soft, mild upper abdominal tenderness, ND, NGT with gastric outputs
--- NOTE | 2024-02-07 08:46 | W.PN.HOSP.TC ---
Today's Communication/Plan
-
Await upper GI series
Continue IV fluids
Continue to hold warfarin and check daily PT/INR
Refusing DVT prophylaxis otherwise
Assessment / Plan
Assessment / Plan
88 y/o male with past medical history of Schatzki's ring status post EGD dilation in May 2023, gastroparesis, non-intentional weight loss, dysphagia, esophageal stricture with last dilation 05/2023, CAD with [place] and CABG 2012, PE in 2019 on warfarin
on chronic Coumadin, HTN, HLD, prior SBO's with SBO requiring surgery 03/2021 with ex lap/sbr, SBO with lysis of adhesion, left hernia repair 2020, presenting with nausea, abdominal pain and green diarrhea. Patient also reported he had chest pain a
couple of weeks ago, for which he had a stress test which showed moderate risk nuclear stress test and he was supposed to get a cardiac cath. Patient reported continued unintentional weight loss. He denied current active chest pain but has recently
been worked up for chest pain. ROS was positive for weight loss and slight headache.
Presentation with nausea/vomiting/abdominal pain/bloating/diarrhea
History of Small Bowel Obstruction status post Lysis of Adhesions
Gastroenteritis/ileus versus small bowel obstruction
-For upper GI series today
-PT/INR 1.88 today actually dennis a little bit from 1.7 yesterday
-No definitive plan for surgery for intervention/continue to monitor PT/INR
History of Gastroparesis
-Surgery Consulted, recommendations appreciated
-Check trops x 3 within normal limits; ST depression on EKG
-Consulted cardiology, recommendations appreciated
-Hold Warfarin as per surgery
Recent Chest Pain a Few Weeks Ago
-Stress test was done had a moderate risk nuclear stress test and he is scheduled for cardiac catheterization
-Consulted cardiology, recommendations appreciated
Nonintentional Weight Loss, Abdominal Pain, Dysphagia in May 2023 [facility] Hospitalization
-Multifactorial
-Will need further workup outpatient
Additional History:
Eosinophilic Esophagitis
Schatzki's ring status post EGD dilation in May 2023
Weight loss and abdominal discomfort.
History of pulmonary embolism in 2019 on Chronic Coumadin - Check INR
Essential hypertension.
Hyperlipidemia.
Coronary artery disease, status post coronary bypass grafting.
DVT PPx: SCDs (patient refused any Heparin -- but this should be re-evaluated daily) again refused today either Lovenox or heparin at DVT prophylaxis dosing
Code Status: Full Cod
Anticipated Discharge: Within 24 hours
Subjective/Interval History
-
Date of Service: February 07, 2024
Patient's only complaint is some vague sensation of transitory chest pain rating across his left side not aggravated by inspiration
Objective Data
-
Labs:
Laboratory Results
02/07/24
02:44
WBC 4.9
Hgb 15.4
Hct 43.6
Plt Count 103 L
PT 21.5 H
INR 1.88
Sodium 139
Potassium 3.8
Chloride 109 H
Carbon Dioxide 23
BUN 27 H
Creatinine 0.9
Glucose 110 H
Calcium 9.0
Vital Signs:
Vital Signs
Temp Pulse Resp BP Pulse Ox
98.2 F 66 18 150/80 96
02/07/24 07:13 02/07/24 04:45 02/07/24 07:13 02/07/24 02:35 02/07/24 07:13
I&O
02/06/24 02/07/24 02/08/24
06:59 06:59 06:59
Intake Total 1330 / 1330
Output Total 1575 / 1575
Balance -245 / -245
Review of Systems
-
Unable to obtain full review of systems at this time due to: Dementia
History Source: Patient
All other systems: Reviewed and negative
Constitutional: Reports No Symptoms
EENT: Reports No Symptoms Reported
Physical Exam
-
General: Well Developed
HEENT: Normocephalic
Respiratory: Clear to Auscultation
Cardiac: Regular Rhythm and S1/S2 (Sinus rhythm on monitor)
GI: Soft, Nontender and Nondistended
Musculoskeletal: No Clubbing
Skin: Warm
Neuro: Awake
Psych: Calm
Data Reviewed
-
Total Time Spent with Patient (in minutes): 56
Labs: Labs Reviewed by me (Hemoglobin 15.4 white count 4.9/BUN of 27)
--- NOTE | 2024-02-07 11:07 | CM ---
Reviewed chart. Met with Mr. Ramirez to review discharge plans. He declined to answer the assesment questions. From a previous admission here he resides with his spouse in a spilt-level home without any steps to enter. He has five steps to get to
his bathroom. Prior to admission he was independent with ambulation and adls. He has a rolling walker at home. He has a prescription plan and uses [facility]. Medical work-up progress. The discharge plan is to return home with his spouse
when medically stable.
[2024-02-07 13:29] VITALS: BP 164/94
--- NOTE | 2024-02-07 15:34 | W.PN.UPDATE ---
Update Note
Progress Note Update
Assessment:
Patient seen and examined at bedside
NGT has been clamped since just prior to SBFT study. Denies n/v. Denies abdominal pain.
Passing multiple liquid stools.
SBFT reviewed: normal study
Plan:
NGT removed at bedside
Start clear liquid diet and follow for tolerance
[2024-02-07 16:41] VITALS: BP 163/91
[2024-02-07] MEDS: COZAAR 100 MG PO (17:56)
[2024-02-07] MEDS: PROTONIX 40 MG PO (17:56)
[2024-02-07] MEDS: NSS IV (17:57)
[2024-02-07 19:03] VITALS: BP 143/79
[2024-02-07] MEDS: LIPITOR 20 MG PO (21:42)
[2024-02-07 23:16] VITALS: BP 139/76
[2024-02-08 04:21] VITALS: BP 142/73
[2024-02-08 04:39] LABS: % Basophils 0.4 % (0-2); % Eosinophils 4.3 % (0-6); % Immature Granulocytes 0.4 % (0-0.5); % Lymphocytes 24.4 % (20.5-51.1); % Monocytes 14.9 % (1.7-9.3); % Neutrophils 55.6 % (42.2-75.2); Absolute Eosinophils 0.2 10^3/uL (0-0.7); Absolute Lymphocytes 1.3 10^3/uL (1.2-3.4); Absolute Monocytes 0.8 10^3/uL (0.1-0.6); Absolute Neutrophils 2.9 10^3/uL (1.4-6.5); Hematocrit 38.1 % (39.0-52.0); Hemoglobin 13.6 g/dL (13.0-18.0); Mean Corp Hgb Conc. 35.7 g/dL (33.0-37.0); Mean Corpuscular Hgb 33.6 pg (27.0-31.0); Mean Corpuscular Volume 94.1 fL (80.0-94.0); Mean Platelet Volume 10.7 fL (7.4-10.4); Nucleated Red Blood Cells % 0 % (-); Platelet Count 83 10^3/uL (130-400); Red Blood Cell Count 4.05 10^6/uL (4.70-6.10); Red Cell Dist. Width 12.7 % (11.5-14.5); White Blood Cell Count 5.3 10^3/uL (4.8-10.8)
--- NOTE | 2024-02-08 04:40 | PTCARENOTE ---
Assumed care of patient at 19:00. Patient AAOx3, tele monitor shows SR-gennaro w/ occasional PVCs. Patient reports having intermittent left lower chest discomfort, and describes as 'pressure'. Discomfort happens at rest and 'comes and goes'. Patient
had 2 episodes of diarrhea thus shift, and he denies any nausea. Abdomen soft w/ positive bowel sounds. Patient tolerated clear liquids. Aware of POC, call nelson in reach .
[2024-02-08 05:03] LABS: PT 25.1 Sec (11.4-14.6)
[2024-02-08 05:09] LABS: Blood Urea Nitrogen 22 mg/dl (9-20); Calcium 8.9 mg/dl (8.4-10.2); Carbon Dioxide 24 mmol/L (22-30); Chloride 114 mmol/L (98-107); Glucose 94 mg/dl (70-99); Magnesium 1.9 mg/dl (1.6-2.3); Potassium 3.5 mmol/L (3.5-5.1); Sodium 140 mmol/L (135-145); eGFR > 60.00
[2024-02-08 08:00] VITALS: BP 156/87
--- NOTE | 2024-02-08 08:02 | W.PN.HOSP.TC ---
Today's Communication/Plan
-
Awaiting further advancing diet per surgery
When spoke to him about resuming warfarin noting cardiology note with low suspicion for ischemic burden as cause of his atypical chest pain he wanted to talk to Dr. Small prior to initiation again
PT/INR dennis to 2.3 today./Will await input from cardiology after conversation with patient to resume
Assessment / Plan
Assessment / Plan
88 y/o male with past medical history of Schatzki's ring status post EGD dilation in May 2023, gastroparesis, non-intentional weight loss, dysphagia, esophageal stricture with last dilation 05/2023, CAD with [place] and CABG 2012, PE in 2019 on warfarin
on chronic Coumadin, HTN, HLD, prior SBO's with SBO requiring surgery 03/2021 with ex lap/sbr, SBO with lysis of adhesion, left hernia repair 2020, presenting with nausea, abdominal pain and green diarrhea. Patient also reported he had chest pain a
couple of weeks ago, for which he had a stress test which showed moderate risk nuclear stress test and he was supposed to get a cardiac cath. Patient reported continued unintentional weight loss. He denied current active chest pain but has recently
been worked up for chest pain. ROS was positive for weight loss and slight headache.
Presentation with nausea/vomiting/abdominal pain/bloating/diarrhea
History of Small Bowel Obstruction status post Lysis of Adhesions
Gastroenteritis/ileus versus small bowel obstruction
-For upper GI series today
-PT/INR 1.88 today actually dennis a little bit from 1.7 yesterday and dennis again today to 2.3
-No definitive plan for surgery for intervention/continue to monitor PT/INR
History of Gastroparesis
-Surgery Consulted, recommendations appreciated
-Check trops x 3 within normal limits; ST depression on EKG
-Consulted cardiology, recommendations appreciated
-Hold Warfarin as per surgery
Recent Chest Pain a Few Weeks Ago
-Stress test was done had a moderate risk nuclear stress test and he is scheduled for cardiac catheterization
-Consulted cardiology, recommendations appreciated/feel presentation is atypical for ischemic pain with negative troponins and relatively unremarkable stress test
-Patient will need to speak to Dr. Salgado today to definitively exclude plan for any cardiac catheterization as was suggested by his note prior to initiating warfarin again
Nonintentional Weight Loss, Abdominal Pain, Dysphagia in May 2023 [facility] Hospitalization
-Multifactorial
-Will need further workup outpatient
Additional History:
Eosinophilic Esophagitis
Schatzki's ring status post EGD dilation in May 2023
Weight loss and abdominal discomfort.
History of pulmonary embolism in 2019 on Chronic Coumadin - Check INR
Essential hypertension.
Hyperlipidemia.
Coronary artery disease, status post coronary bypass grafting.
DVT PPx: SCDs (patient refused any Heparin -- but this should be re-evaluated daily) again refused today either Lovenox or heparin at DVT prophylaxis dosing
Code Status: Full Cod
Anticipated Discharge: Within 24 hours
Subjective/Interval History
-
Date of Service: February 08, 2024
Had several loose bowel movements yesterday NG tube now out upper GI series showed no obstruction tolerating clear liquids thus far
Objective Data
-
Labs:
Laboratory Results
02/08/24
04:28
WBC 5.3
Hgb 13.6
Hct 38.1 L
Plt Count 83 L
PT 25.1 H
INR 2.30
Sodium 140
Potassium 3.5
Chloride 114 H
Carbon Dioxide 24
BUN 22 H
Creatinine 1.0
Glucose 94
Calcium 8.9
Vital Signs:
Vital Signs
Temp Pulse Resp BP Pulse Ox
97.6 F 60 16 142/73 97
02/08/24 07:58 02/08/24 07:58 02/08/24 07:58 02/08/24 04:21 02/08/24 07:58
I&O
02/07/24 02/08/24 02/09/24
06:59 06:59 06:59
Intake Total 1330 / 1330 1730 / 1730
Output Total 1575 / 1575 124 / 124
Balance -245 / -245 1606 / 1606
Review of Systems
-
History Source: Patient
Respiratory: Reports No Symptoms
Cardiac: Reports Chest Pain (Typical manic exertion describes as heaviness none overnight)
Abdomen/GI: Reports No Symptoms
Musculoskeletal: Reports No Symptoms
Physical Exam
-
General: Well Developed
HEENT: Normocephalic
Respiratory: Clear to Auscultation
Cardiac: Regular Rhythm
GI: Soft and Nontender
Psych: Calm
Data Reviewed
-
Total Time Spent with Patient (in minutes): 45
Medical Tests (Nuc Med, Echo etc): Image personally visualized and interpreted and Report Reviewed by me
Labs: Labs Reviewed by me (PT and INR dennis again to 2.30 in the absence of warfarin for the last 3 days)
[2024-02-08] MEDS: COZAAR 100 MG PO (08:15)
[2024-02-08] MEDS: PROTONIX 40 MG PO (08:15)
--- NOTE | 2024-02-08 08:50 | W.PN.CD ---
Today's Communication / Plan
-
Continue warfarin
No plans for cath at this time as his CP is atypical aka improved with exercise/daily activities and worse with rest
Continue other cardiac meds
We will sign off please call with questions/concerns.
Impression / Plan
-
Chest pain: Prolonged and atypical. Troponins normal. Mostly rest symptoms. Cardiac catheterization in March 2022 found patent vein grafts and an underfilled MCCLOUD that did not require revascularization for rest pain and not felt to represent
angina. Stress test last week is normal.
Chronic warfarin: This is for prior pulmonary embolism and not for cardiac reasons. With prolonged symptoms and negative troponin it makes coronary ischemia unlikely . On the phone last week it was challenging to evaluate his symptoms so cath was
discussed. However now admitted with GI issues. GI issues were may bbe exacerbating symptoms.CT with gastric and SB distention. Gastroenteritis/ileus versus small bowel obstruction.
Would not proceed with cath at this time. Continue wit medical therapy for CAD and Tx of GI issues.
Gastroenteritis/ileus versus small bowel obstruction. on CT. NG in place . Tx per GI
Mixed hyperlipidemia: Stable. Continue statin
Physical Exam
Vital Signs/Labs
Vital Signs
Temp Pulse Resp BP Pulse Ox
97.6 F 70 16 156/87 97
02/08/24 07:58 02/08/24 08:15 02/08/24 07:58 02/08/24 08:15 02/08/24 07:58
02/08/24 04:28
02/08/24 04:28
PT 25.1 Sec (11.4-14.6) H 02/08/24 04:28
INR 2.30 02/08/24 04:28
Magnesium 1.9 mg/dl (1.6-2.3) 02/08/24 04:28
LAB Results
02/06/24 02/06/24 02/06/24
06:49 16:34 21:32
Troponin I < 0.012 < 0.012 Cancelled
02/07/24
02:44
Troponin I 0.015
Physical Exam
Constitutional: No acute distress
EENT: Anicteric
Cardiovascular: Rhythm & rate is regular and Pedal edema is absent
Respiratory: Respiratory effort normal and Lungs clear to auscul.
GI: Soft
Neuro/Psych: Alert and Oriented
Data Reviewed
-
Date of Service: February 08, 2024
EKG: Tracing Personally Visualized and interpreted (sinus)
Echo: Report Reviewed by me
Labs: Labs Reviewed by me
--- NOTE | 2024-02-08 09:30 | W.PN.GS2 ---
Today's Communication / Plan
-
-- LRD
-- Sign off
Assessment / Plan
-
Assessment:
88M with pmh of gastroparesis, esophageal stricture with last dilation 05/2023, CAD with CT and CABG 2012, PE in 2019 on warfarin (on hold) with nausea for over a week a/w abd pain. he presented as he developed vomiting and diarrhea as well over the
weekend. Initial CT notable for severe gastric distention, proximal bowel is normal but distally it is dilated, anastomosis is patent, no clear transition point, air and stool in the colon down to the rectum. Suspect gastroenteritis w/
gastroparesis, less likely pSBO
AFVSS
No leukocytosis
NGT with 1575 out since placement yesterday, gastric outputs currently
--LRD
--OK to resume anticoagulation from surgical perspective
--Call with questions or concerns
Subjective Data
-
Date of Service: February 08, 2024
Tolerated clears. No nausea or emesis. Passing flatus and loose stools. Afebrile.
Objective Data
-
Intake and Output
02/07/24 02/08/24 02/09/24
06:59 06:59 06:59
Intake Total 1330 / 1330 1730 / 1730
Output Total 1575 / 1575 124 / 124
Balance -245 / -245 1606 / 1606
Intake:
Oral fluids 120 / 120 740 / 740
IV fluids (Total) 1050 / 1050 900 / 900
NSS 1050 / 1050 900 / 900
Amount instilled into GI Tube ( 160 / 160 90 / 90
Total)
[place] Sump 160 / 160 90 / 90
Output:
Gastrointestinal tube output ( 1575 / 1575 120 / 120
Total)
[place] Sump 800 / 800 120 / 120
Urine, Voided 4 / 4
Other:
Number of approximated MODERATE 2
amounts of urine
Number of approximated LARGE 2
amounts of urine
How many times incontinent 2
MODERATE amount urine
Number of unmeasured liquid
stools
Rectum 2
Vital Signs
Temp Pulse Resp BP Pulse Ox
97.6 F 70 16 156/87 97
02/08/24 07:58 02/08/24 08:15 02/08/24 07:58 02/08/24 08:15 02/08/24 07:58
Lab Results
02/08/24 04:28
02/08/24 04:28
Calcium 8.9 mg/dl (8.4-10.2) 02/08/24 04:28
Magnesium 1.9 mg/dl (1.6-2.3) 02/08/24 04:28
Total Bilirubin 1.6 mg/dl (0.2-1.3) H 02/06/24 06:49
AST 30 U/L (17-59) 02/06/24 06:49
ALT 20 U/L (0-50) 02/06/24 06:49
Alkaline Phosphatase 79 U/L (38-126) 02/06/24 06:49
Total Protein 7.4 g/dl (6.3-8.2) 02/06/24 06:49
Albumin 4.7 g/dl (3.5-5.0) 02/06/24 06:49
Physical Exam
-
Gen: NAD
Abd: soft, NT/ND, non-peritoneal
[2024-02-08] MEDS: KLOR-CON 20 MEQ PO (10:18)
[2024-02-08 11:33] VITALS: BP 128/74
[2024-02-08 15:58] VITALS: BP 162/96
--- NOTE | 2024-02-08 18:06 | W.DS.TRANS ---
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
-
Discharge Instructions:
Discharge Diagnosis/Procedures Small Bowel Obstruction
Atypical Chest Pain
Diet Low Residue
Activity As tolerated
Driving Restrictions As prior to admission
Instructions:
Stand-Alone Forms:
Changes to Home Medications: No
Discharge Medications:
DC Medications w/original date entered in [employer]
atorvastatin 20 mg tablet (Lipitor) 10 mg PO HS High cholesterol 03/27/22
warfarin 5 mg tablet (Jantoven) 5 mg PO SUTUTHSA Blood clot prevention/tx 03/27/22
warfarin 2.5 mg tablet (Jantoven) 2.5 mg PO MOWEFR Blood clot prevention/tx 03/28/22
losartan 100 mg tablet 100 mg PO DAILY Blood Pressure 05/31/23
pantoprazole 40 mg tablet,delayed release 40 mg PO DAILY Gastrointestinal Issue #0 tabs 06/04/23
Home Medication Changes
Pending Results: No
Total time spent discharging patient (in min): 39
--- NOTE | 2024-02-08 18:07 | W.DCSUMMARY ---
Discharge Summary
Discharge Data
Date of Admission: 02/06/24
Date of Discharge: 02/08/24
-
Pending Results: No
Hospital Course
88 y/o male with past medical history of Schatzki's ring status post EGD dilation in May 2023, gastroparesis, non-intentional weight loss, dysphagia, esophageal stricture with last dilation 05/2023, CAD with [place] and CABG 2012, PE in 2019 on warfarin
on chronic Coumadin, HTN, HLD, prior SBO's with SBO requiring surgery 03/2021 with ex lap/sbr, SBO with lysis of adhesion, left hernia repair 2020, presenting with nausea, abdominal pain and green diarrhea. Patient also reported he had chest pain a
couple of weeks ago, for which he had a stress test which showed moderate risk nuclear stress test and he was supposed to get a cardiac cath. Patient reported continued unintentional weight loss. He denied current active chest pain but has recently
been worked up for chest pain. ROS was positive for weight loss and slight headache.
Pt seen by General surgery and Cardiology
Intial Tx NPO and NG tube to Suction / Initial CT notable for severe gastric distention, proximal bowel is normal but distally it is dilated, anastomosis is patent, no clear transition point, air and stool in the colon down to the rectum. Suspect
gastroenteritis w/ gastroparesis, less likely pSBO
AFVSS
No leukocytosis
NGT with 1575 out since placement after day one /
Subsequent UGI series showed no futer SBO or transition point and contrast thruout / Diet was advanced to LRD prior to d/c
Cardiology felt CP non ischemic and actually improved w/ exertion / no need to pursue further consideration for cardiac cathj and ok to resume warfarin.
Pt has been advised to seek further assessment of his unexplained wt loss with his PCP insistent on leaving on this date
Discharge Plan
-
Patient Disposition: Home (Routine Discharge)
Discharge Diagnosis/Procedures: Small Bowel Obstruction
Atypical Chest Pain
Diet: Low Residue
Activity: As tolerated
Driving Restrictions: As prior to admission
Referrals:
Paul Desir MD [Family Provider] - in less than 1 week
Prescriptions:
Continued
atorvastatin [Lipitor] 20 MG tablet
10 mg PO HS
warfarin [Jantoven] 5 MG tablet
5 mg PO SUTUTHSA
warfarin [Jantoven] 2.5 MG tablet
2.5 mg PO MOWEFR
losartan 100 MG tablet
100 mg PO DAILY
pantoprazole 40 MG tablet,delayed release (DR/EC)
40 mg PO DAILY Qty: 0 0RF
Discharge Orders:
Discharge Patient (As Directed); Ordered 02/08/24
Ordered By: Ted Vivar
Care Plan Goals
Care Plan Goals:
Problem: Readiness for enhanced knowledge related to diagnosis and treatment plan
Goal: Understand your diagnosis and treatment plan needs, including medications if applicable.
Instructions: Know your diagnosis, underlying causes and treatment plan options, including medications if applicable. Consult with your health care team to learn about your diagnosis and treatment plan, including medications if applicable.
Discharge Date and Time
Print Language: [place]AST [place]
--- NOTE | 2024-02-08 21:10 | PTCARENOTE ---
Discharge paperwork and instructions provided by day shift RN. Personal belongings sent home w/ patient. Patient escorted out w/ staff, and he refused to use wheelchair. Patient discharged from hospital at approximately 19:30.
== END 2024-02-08 19:30 | disposition home or self-care (01) ==
LOC: IVU 11:30
PROVIDERS: ADMITTING PHYSICIAN Hospitalist; ATTENDING PHYSICIAN Internal Medicine; CONSULT PHYSICIAN Internal Medicine Cardiovascular Disease; CONSULT PHYSICIAN Surgery; EMERGENCY PHYSICIAN Emergency Medicine; FAMILY PHYSICIAN Family Medicine
DX: K56.600 Partial intestinal obstruction, unspecified as to cause (principal); K31.84 Gastroparesis; R51.9 Headache, unspecified; R07.89 Other chest pain; R06.02 Shortness of breath; I25.10 Atherosclerotic heart disease of native coronary artery without angina pectoris; K21.9 Gastro-esophageal reflux disease without esophagitis; R63.4 Abnormal weight loss; K20.0 Eosinophilic esophagitis; I25.2 Old myocardial infarction; I10 Essential (primary) hypertension; E78.2 Mixed hyperlipidemia; K44.9 Diaphragmatic hernia without obstruction or gangrene; Z95.1 Presence of aortocoronary bypass graft; Z86.711 Personal history of pulmonary embolism; Z98.1 Arthrodesis status; Z82.49 Family history of ischemic heart disease and other diseases of the circulatory system; Z79.01 Long term (current) use of anticoagulants; Z90.79 Acquired absence of other genital organ(s); Z87.19 Personal history of other diseases of the digestive system; Z88.8 Allergy status to other drugs, medicaments and biological substances
CPT/HCPCS: 74177; 74250; 80048; 80053; 83690; 83735; 84484; 85025; 85610; 93005; 96361; 96374; 96375; 99285; G0378; Q9967

== ENCOUNTER 2024-02-24 22:19 | Observation (INO) | payer OTHER, SELFPAY ==
[2024-02-24] VITALS (7 sets, daily range): BP systolic 137–176; BP diastolic 77–95; BMI 21.5
[2024-02-24 17:39] LABS: % Basophils 0.7 % (0-2); % Eosinophils 1.3 % (0-6); % Immature Granulocytes 0.4 % (0-0.5); % Monocytes 12.1 % (1.7-9.3); % Neutrophils 61.5 % (42.2-75.2); Absolute Eosinophils 0.1 10^3/uL (0-0.7); Absolute Lymphocytes 1.3 10^3/uL (1.2-3.4); Absolute Monocytes 0.7 10^3/uL (0.1-0.6); Absolute Neutrophils 3.4 10^3/uL (1.4-6.5); Hematocrit 45.9 % (39.0-52.0); Hemoglobin 16.5 g/dL (13.0-18.0); Mean Corp Hgb Conc. 35.9 g/dL (33.0-37.0); Mean Corpuscular Hgb 33.1 pg (27.0-31.0); Mean Corpuscular Volume 92.2 fL (80.0-94.0); Mean Platelet Volume 9.8 fL (7.4-10.4); Nucleated Red Blood Cells % 0 % (-); Platelet Count 131 10^3/uL (130-400); Red Blood Cell Count 4.98 10^6/uL (4.70-6.10); Red Cell Dist. Width 12.7 % (11.5-14.5); White Blood Cell Count 5.6 10^3/uL (4.8-10.8)
[2024-02-24 17:57] LABS: ALT (SGPT) 21 U/L (0-50); AST (SGOT) 29 U/L (17-59); Albumin 4.9 g/dl (3.5-5.0); Alkaline Phosphatase 75 U/L (38-126); Blood Urea Nitrogen 19 mg/dl (9-20); Calcium 10.4 mg/dl (8.4-10.2); Carbon Dioxide 21 mmol/L (22-30); Chloride 103 mmol/L (98-107); Glucose 133 mg/dl (70-99); Potassium 4.1 mmol/L (3.5-5.1); Sodium 135 mmol/L (135-145); Total Bilirubin 1.2 mg/dl (0.2-1.3); Total Protein 7.6 g/dl (6.3-8.2); eGFR > 60.00
[2024-02-24 18:03] LABS: Troponin I 0.013 ng/ml
[2024-02-24 18:22] LABS: Lipase 365 U/L (23-300)
[2024-02-24] MEDS: ZOFRAN 4 MG IV (19:22)
[2024-02-24] MEDS: PEPCID 20 MG IV (19:26)
--- NOTE | 2024-02-24 19:57 | ED.GENMED ---
History of Present Illness
General
Chief Complaint: Chest Pain
Source: patient and spouse
Exam Limitations: none
Time Seen by Provider: 02/24/24 18:20
Nursing documentation reviewed up to this point in time: agreed with
Travel History
Have you had any contact with someone who has COVID-19?: No
Do you have any symptoms of coronavirus? Fever > 100 degrees, chills, cough, shortness of breath, sore throat, loss of taste or smell, muscle aches, or headache?: No
History of Present Illness
History of Present Illness:
88-year-old male with past medical history of hypertension hyperlipidemia, previous bowel obstruction gastroparesis previous PE presenting to the emergency department today with concerns of worsening abdominal pain over the past few days nausea no
vomiting last bowel movement yesterday morning. Also has had some intermittent chest pain. Had similar symptoms in the past when he had a bowel obstruction.
Past History
Past History
ED Past Medical History: CAD, GERD, HTN, Hypercholesterolemia and Other (hiatal hernia, PE)
ED Past Surgical History: Cardiac (CABG 2012), Orthopedic (Lumbar fusion), Urological (Prostatectomy) and Other (Mouth growth removed, esophageal procedure to fix a tear)
Patient has exhibited threatening behavior?: No
PSI?: No
Social History
Tobacco: Non-smoker
Alcohol: None
Drug: None
Personal:
Living: with family
Employment: Retired
Family History
Family History: Hypertension
Review of Systems
Review of Systems
Allergies reviewed?: Yes
All Other Systems: ROS reviewed and negative except as documented in HPI and ROS
Phy Exam
Physical Exam
Physical Exam:
GENERAL: Alert , in no apparent distress
EYE: pupils equal and reactive
NECK: Supple, no significant adenopathy.
ENT: o/p clr, mmm.
CARDIAC: Regular rate and rhythm .
LUNGS: Clear breath sounds bilaterally, no acute respiratory distress, no wheezes/rales/rhonchi
ABDOMEN: Mild diffuse tenderness to palpation no specific focal tenderness no obvious distention
NEUROLOGICAL: Alert and oriented, no focal neuro deficits
SKIN: Warm and dry, skin intact.
MUSCULOSKELETAL: No edema, well perfused.
PSYCH: Normal and appropriate interaction.
Scores
Heart Score for Chest Pain Patients
STEMI patient?: No
History: Slightly or Non-Suspicious
ECG: Nonspecific Repolarization
Age: >/= 65 years
Risk Factors: >/= 3 Risk Factors or History of CAD
Troponin: </= Normal Limit
Heart Score for Chest Pain Patients: 5
Heart Score Risk: 20.3% MACE over next 6 weeks
Course
Orders/Labs/Results
Orders:
Orders
02/24/24 Dinner
Full Liquids
At Your Request: Limited, Cost Reduction Engineer Required
Flush Continuous pump feedings with water (mL/hr): 25
02/24/24 17:20
EKG [Electrocardiogram (*1)] Urgent
Reason for Study: Chest Pain
EKG- Treatment ONCE
02/24/24 17:34
Complete Blood Count/With Diff Urgent
Comprehensive Metabolic Panel Urgent
Lipase Urgent
Troponin I Urgent
02/24/24 18:51
CT Abd/Pel (IV only)-DH only Urgent
Comment:
Reason For Exam: diffuse abd pain hx of obstruction, no PO
Famotidine [Pepcid] 20 mg IV NOW STA
Ondansetron Injectable [Zofran] 4 mg IV NOW STA
02/24/24 20:14
PT/INR [Prothrombin Time] Urgent
02/24/24 20:35
Chest [CR Chest - 2 Views ] Urgent
Comment:
Reason For Exam: cp upper abd pain
02/24/24 20:44
diazePAM [Valium Injection] 2 mg IV NOW STA
02/24/24 20:53
Urinalysis Reflex To Culture Urgent
Date Specimen was Collected: 02/24/24
Time Specimen was Collected: 20:49
02/24/24 22:08
Admit/Transfer Patient As Directed
Co-Sign Provider:
Level of Care: Observation services
Assign to:: Telemetry
Physician / Group: cris andrews
Diagnosis: recurrent gastritis/gastroparesis, subthereputic INR/coumadin
Reason for Telemetry: Arrhythmia
Date to Stop Telemetry: 02/27/24
Time to Stop Telemetry: 11:00
Reason for Hospitalization: recurrent gastritis/gastroparesis, subthereputic INR/coumadin
Code Status As Directed
Resuscitation Status: Full Code
02/24/24 22:22
Acetaminophen [Tylenol] 250 mg PO Q6H PRN
02/24/24 22:22
VTE Contraindication Routine
VTE Mechanical Device Contraindication: Medical Contraindication
Pharmocologic Contraindication: Medical Contraindication
Comment: pt on coumadin
Activity As Directed
Activity Level: As Tolerated
Intake/ Output As Directed
Frequency: Per unit guidelines
Vital Signs As Directed
Frequency: Per unit guidelines
Weight As Directed
Frequency: Daily
Ot Eval And Treat Routine
Pt Eval And Treat Routine
Activity Level: As Tolerated
02/24/24 23:00
Warfarin [Coumadin] 7.5 mg PO QPM
02/25/24 05:41
Complete Blood Count/With Diff IN AM
Comprehensive Metabolic Panel IN AM
02/25/24 08:00
Losartan [Cozaar] 100 mg PO DAILY
Pantoprazole [Protonix] 40 mg PO DAILY
02/25/24 22:00
Atorvastatin [Lipitor] 10 mg PO HS
02/27/24 11:00
DC Protocol for Telemetry ONCE
Abnormal Lab Results
02/24/24 02/24/24 02/24/24
17:34 20:14 20:53
MCH 33.1 H pg
(27.0-31.0)
Absolute Monos (auto) 0.7 H 10^3/uL
(0.1-0.6)
Monocytes % 12.1 H %
(1.7-9.3)
PT 20.6 H Sec
(11.4-14.6)
Carbon Dioxide 21 L mmol/L
(22-30)
Glucose 133 H mg/dl
(70-99)
Calcium 10.4 H mg/dl
(8.4-10.2)
Lipase 365 H U/L
(23-300)
Urine Ketones Trace A
(Negative)
02/24/24 17:34
02/24/24 17:34
Vital Signs
Initial and Last Documented VS:
Initial Vital Signs
Temp Pulse Resp BP Pulse Ox
98.0 F 73 18 172/95 100
02/24/24 17:28 02/24/24 17:28 02/24/24 17:28 02/24/24 17:28 02/24/24 17:28
Last Documented Vital Signs
Temp Pulse Resp BP Pulse Ox
97.4 F 63 20 157/83 99
02/25/24 03:45 02/25/24 03:45 02/25/24 03:45 02/25/24 03:45 02/25/24 03:45
MDM/Problems Addressed
MDM/Problems Addressed:
88-year-old male presenting to the emergency department today with concerns of worsening abdominal pain over the past day or so feels similar to previous bowel obstruction. Has had nausea. Mild distention on exam. Otherwise vital signs are
normal. Labs unremarkable. CT scan ordered for further evaluation. CT scan showing gastritis no signs of obstruction potential thickening of the bladder plan to check urinalysis. Patient was reassessed and given the news of lack of bowel
obstruction and diagnosis of gastritis. Was offered to him for him to go home with nausea medication he claims that he feels very unwell and unsafe to go home. He claims that he is unable to tolerate by mouth at this point still has very
persistent significant nausea. Concerning this plan to admit for observation overnight.
*Critical Care Note
Total Time (30-74mins, 75-104mins- exclusive of procedures): Not Applicable
ED Attending Note
-
Portions of this chart may have been created with voice recognition software.� Occasional wrong word or��sound alike� substitutions may have occurred due to the inherent limitations of voice recognition software.
Discharge Plan
Departure
Patient Disposition: Admit
Date of Disposition: 02/24/24
Time of Disposition: 20:47
Admit to: Med/Surg
Admit to doctor: Leland
Presentation/result/management discussed w/ accepting MD/DO: Hospitalist
Patient with high blood pressure during this ER visit?: No
Condition: Good
Covid-19: Not Applicable
Discharge Problem:
Gastritis, Abdominal pain
Interventions
Interventions:
*Risk Screen - Suicide Last Done: 02/24/24 17:22
*General Assessment Last Done: 02/24/24 17:22
*Neglect/Abuse Screening Last Done: 02/24/24 17:22
*ED COVID-19 Vaccine History Last Done: 02/24/24 17:22
*Nursing Disposition Last Done: 02/25/24 03:40
ED- Cardiac Assessment Last Done: 02/24/24 18:01
Discharge Date and Time
Discharge Date/Time: 02/25/24 03:40
[2024-02-24 20:36] LABS: INR 1.75; PT 20.6 Sec (11.4-14.6)
[2024-02-24] MEDS: VALIUM INJECTION 2 MG IV (20:56)
[2024-02-24 21:02] LABS: Urine Albumin Negative (Neg - Trace); Urine Bilirubin Negative (Negative); Urine Character Clear (Clear); Urine Color Yellow; Urine Glucose Negative (Negative); Urine Ketone Trace (Negative); Urine Leukocyte Negative (Negative); Urine Nitrite Negative (Negative); Urine Occult Blood Negative (Negative); Urine Specific Gravity 1.005 (<1.030); Urine Urobilinogen Negative (Neg - 1+)
--- NOTE | 2024-02-24 21:15 | HPS.HSE ---
Addendum entered and electronically signed by Brodie Ha DO 02/24/24 23:59:
Addendum:
Patient adamantly refused Coumadin 7.5mg this evening - despite being informed of subtherapeutic INR, need for dose adjustments, etc.
Coumadin 5mg x 1 dose ordered as patient states that is all he will take - rather he have partial dose than none at all.
Increasingly suspicious of degree of cognitive decline / early dementia over multiple discussions with this patient - may well be impacting his current perseveration / difficult interactions / etc.
Addendum entered and electronically signed by Brodie Ha DO 02/24/24 23:34:
Patient seen and examined independently. Agree with findings and plan as set forth by ANNIE Covarrubias.
Patient is an 88y M with PMH significant for ASCVD, hypertension, hiatal hernia, GERD, Schatzki's Ring and esophagitis who presents to ED complaining of abdominal bloating, poor appetite, early satiety and left-sided chest discomfort. Patient
was hospitalized at 02/05 - 02/07 for similar symptoms. Work-up seemed most c/w gastroenteritis and gastroparesis - though patient states that he was treated for 'blockage'. He was seen by Surgery and Cardiology during that admission and no
further evaluation was recommended. Patient has since seen his [facility] Worker and notes that a CT scan of his chest was scheduled (for tomorrow).
Today he again noted some bloated sensation and he states that he has continued to have chest discomfort.
He has had recent evaluation(s) including serial troponin (all normal), outpatient stress testing, etc.
Ass:
Gastroenteritis / Gastroparesis
GERD / Hiatal Hernia
Atypical Chest Pain - Likely secondary to the above
ASCVD
History of PE
Benign Hypertension
Dyslipidemia
Plan:
Observe overnight for further evaluation and treatment.
Symptoms seem similar to prior and again are most likely due to gastroparesis / gastroenteritis.
Intensify acid suppression therapy.
Add Reglan for gastroparesis symptoms.
GI evaluation for additional recommendations.
Continue Coumadin and follow INR.
No suspicion for PE in patient on Coumadin (albeit with mildly subtherapeutic INR) and with no tachycardia, hypoxemia, etc.
Troponin again normal here. Follow-up with Cardiology again as an outpatient.
Original Note:
Family Physician
-
Family Physician: Paul Desir
Chief Complaint
-
Abdominal pain, nausea, chronic ongoing chest pressure x 1 month
History of Present Illness
88-year-old male complaining of worsening abdominal pain /chest pressure over the past few days with decreased appetite, nausea , and reflux but no vomiting. His last bowel movement was yesterday a.m. He has also had intermittent chest pain
ongoing over the past 1 month with occasional sharp twinges lasting for seconds across his left side chest x 1 month. He denies fever, chills, headache, dizziness, palpitations, shortness of breath, cough, vomiting, diarrhea, constipation. He
states he had a stress test that was negative on 01/27/2024. He states he followed up with Dr. Small on the who ordered an outpatient CT PE study. This is unclear as patient is on Coumadin for prior history of PE. Patient is persistent he
wants a cardiac catheterization. He just had a recent admission 02/06/2024 - 02/08/2024 for severe gastric distention with suspected gastroenteritis/Hx gastroparesis. He was also evaluated for chest pain by cardiology felt no need for further
evaluation or cardiac cath okay to resume warfarin.
Other PMH HTN, HLD, hiatal hernia, GERD, CAD/DC/CABG 2012, pulmonary embolism 2019 chronic Coumadin,,esophageal stricture Schatzki's ring status post EGD dilation May 2023, gastroparesis, dysphagia, SBO/SBO lysis of adhesions, diverticulosis
sigmoid colon, multilevel DDD lumbar spine, sclerotic lesions T11 right pubic bone, prostate cancer status post prostatectomy
Medical History
Past Medical History
Past Medical History: Reports Other
Additional Past Medical History:
HTN
HLD
Esophageal stricture Schatzki's ring status post EGD dilation May 2023
Gastroparesis
Dysphagia
Hiatal hernia
GERD
CAD/DC/CABG 2012
Pulmonary embolism 2020 chronic Coumadin,
SBO/SBO lysis of adhesions
Diverticulosis sigmoid colon
Multilevel DDD lumbar spine
Sclerotic lesions T11 right pubic bone
Prostate cancer status post prostatectomy
Past Surgical History: Reports Other
Additional Past Surgical History:
CABG 2012
Lumbar fusion
Prostatectomy
Esophageal tear repair, esophageal dilation
Oral mouth growth removal
SBO lysis of adhesions
Hernia repair
Social History
Tobacco: Non-smoker
Alcohol: None
Drug: None
Personal:
Living: With Family ( Stephanie)
Employment: Retired
Family History
Family History: Other (Mother CAD/CABG age 95, father CAD/CABG age 86)
Allergies / Home Medications
Allergies reflects when Allergies were last updated in [employer].
Home Medications with original date entered in [facility]
Allergy/Medication List:
Allergies
Allergy/AdvReac Type Severity Reaction Status Date / Time
promethazine [From Phenergan] AdvReac hallucinati Verified 02/24/24 17:58
ons
Home Medications
warfarin 5 mg tablet (Jantoven) 5 mg PO SUTUTHSA Blood clot prevention/tx 03/27/22
warfarin 2.5 mg tablet (Jantoven) 2.5 mg PO MOWEFR Blood clot prevention/tx 03/28/22
losartan 100 mg tablet 100 mg PO DAILY Blood Pressure 05/31/23
pantoprazole 40 mg tablet,delayed release 40 mg PO DAILY Gastrointestinal Issue #0 tabs 06/04/23
acetaminophen 500 mg tablet 250 mg PO Q6H PRN neck pain 02/24/24
atorvastatin 10 mg tablet 10 mg PO HS 02/24/24
Review of Systems
-
History Source: Patient
A 12 point ROS was completed and negative except as noted: Yes
Constitutional: Reports Other (Decreased appetite); Denies Fever, Fatigue or Chills
EENT: Reports Other (Dyspepsia); Denies Sore Throat or Runny Nose
Respiratory: Denies Cough or Trouble Breathing
Cardiac: Reports Chest Pain (Abdominal pressure radiates to chest); Denies Diaphoresis, Palpitations or Syncope
Abdomen/GI: Reports Abdominal Pain (Pressure) and Nausea; Denies Vomiting, Diarrhea, Constipated, Bloody Stools or Black Stools
: Denies Dysuria, Frequency, Flank Pain, Incontinence, Difficulty Voiding, Urgency or Dark Urine
Musculoskeletal: Denies Joint Pain or Edema
Skin: Denies Itching or Rash
Neurological: Denies Dizzy, Headache, Weakness or Numbness
Endocrine: Reports No Symptoms
Hematologic/Lymphatic: Reports No Symptoms
Psych: Reports Anxiety
Physical Exam
Vital Signs
Vital Signs
Temp Pulse Resp BP Pulse Ox
98.0 F 63 17 146/83 100
02/24/24 17:28 02/24/24 21:00 02/24/24 21:00 02/24/24 21:00 02/24/24 21:00
Physical Exam
General: Conversant; No Pain, Fever or Chills
HEENT: NormoCephalic, Anicteric, Moist mucous membranes, PERRLA, [place] Conjunctivae and No Ptosis
Respiratory: Clear; No Wheezes, Rales or Rhonchi
Cardiac: S1/S2 and JVD; No Murmur, Rub, Gallop or Peripheral Edema
Breast: Deferred by me
GI: Soft, Non Tender, Non Distended, Normal Bowel Sounds and No Hepatosplenomegaly
Genito-urinary: Deferred by me
Musculoskeletal: No Clubbing, No Cyanosis and No Edema
Skin: Warm and Dry; No Rash or Jaundice
Neuro: AO x 3, No Motor Deficits, Nonfocal/grossly intact, Cranial Nerves Intact and No Sensory Deficits; No Slurred Speech, Facial Droop, Tremors or Sedated
Psych: Anxious
Laboratory Results
-
02/24/24 17:34
02/24/24 17:34
Laboratory Results
PT 20.6 Sec (11.4-14.6) H 02/24/24 20:14
INR 1.75 02/24/24 20:14
Total Bilirubin 1.2 mg/dl (0.2-1.3) 02/24/24 17:34
AST 29 U/L (17-59) 02/24/24 17:34
ALT 21 U/L (0-50) 02/24/24 17:34
Alkaline Phosphatase 75 U/L (38-126) 02/24/24 17:34
Troponin I 0.013 ng/ml 02/24/24 17:34
Lipase 365 U/L (23-300) H 02/24/24 17:34
Impression/Plan
-
Impression/plan:
Observation MedSurg
#Recurrent ongoing Gastritis/Gastroparesis
#Hx gastroparesis
#Hiatal hernia Hx
-Consult GI
-IV PPI
-Iv reglan prn nausea
CT abdomen pelvis IV contrast:1. Moderate mucosal hyperenhancement and fold thickening in the stomach suspicious for acute gastritis.
2. Severe diverticulosis in the sigmoid colon.
3. Moderate anterior urinary bladder wall thickening. Diagnostic possibilities are (1) chronic outlet obstruction, (2) cystitis, or (3) urothelial carcinoma.
4. Previous prostatectomy.
5. Sclerotic lesions in the T11 vertebral body and right pubic bone which appear unchanged suggesting bone islands and less likely osseous metastases.
6. Severe multilevel discogenic degenerative disease in the lumbar spine (L2/L3 through L5/S1).
7. Previous circumferential spinal fusion at L1/L2.
CXR: 1. No radiographic evidence for acute cardiopulmonary disease.
2. Mild bilateral lung hyperinflation.
3. Previous CABG surgery.
4. Calcified left mediastinal subaortic lymph nodes.
5. Previous circumferential spinal fusion at L1/L2.
#Subtherapeutic INR on Coumadin
#Hx Pulmonary embolism
INR 1.75
-Continue Coumadin 7.5 mg tonight
-Check INR in a.m.
#CAD/DC/CABG 2012
Chronic ongoing chest pain
-Had evaluation recent admission January 2024 deemed low likelihood of any ischemia
Cardiac catheterization in March 2022 found patent vein grafts and an underfilled MCCLOUD that did not require revascularization for rest pain and not felt to represent angina. Stress test 01/27/2024 is normal.
-Continue statin, Coumadin, losartan
#Urinary bladder wall thickening per CT
#Prostate cancer status post prostatectomy
-Monitor urine output
-Patient with no urinary symptoms
#GERD
#Esophageal stricture, Schatzki's ring status post EGD dilation May 2023
#Dysphagia Hx
-Continue Protonix 40 mg daily
#Hx SBO with lysis of adhesions
#Diverticulosis sigmoid colon Hx
#HTN benign
-Continue losartan 100 mg daily
#HLD
-Continue atorvastatin 10 mg at bedtime
Other PMH:
Multilevel DDD lumbar spine
Sclerotic lesions T11 right pubic bone
DVT prophylaxis
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
Full code
--- NOTE | 2024-02-24 23:36 | EDRN ---
this TAR BOILER attempted to administer ordered PO Warfarin evening dose to this pt per EMAR order. the pt refused stating 'I don't want it.' the pt asked this TAR BOILER ' can I have some kind of food? No one has given me any food.' this TAR BOILER noted the pts
admission orders is full liquid diet. this TAR BOILER explained this to the pt who then became angry and stated 'This is crap. You have me in this crappy bed that is not long enough, my feet are hanging off. The sheets are fallen down and no one comes in
to offer me food or water or to check on me. They just told me this is my room and then ignore me.' This TAR BOILER spoke with this pt at length and explained to him again that the hospital is full and he is one of many patients that will have to be held
in the ER overnight due to no rooms available on the inpatient floors. This TAR BOILER provided this pt with apple juice and mali-mckay per the pts request. this TAR BOILER called [facility] and requested an inpatient hospital bed be brought down for this pt. ER
water main inspector was notified of above.
--- NOTE | 2024-02-24 23:56 | EDRN ---
This CAPACITOR INSPECTOR spoke with ANNIE Stone regarding this pt refusing his ordered night time dose of Warfarin 7.5mg PO per EMAR. Per ANNIE Stone, the pts INR-1.75 is subtherapeutic on his current regimen so he was ordered an increased dose of
Warfarin to bring him the therapeutic INR level. the pt also has a history of PE. This CAPACITOR INSPECTOR explained this to the pt at length including the risk of developing another PE if his INR remains subtherapeutic. The pt just repeatedly stated 'I have
never needed 7.5mg Warfarin before. I have been on this regimen for a year and I have been fine.' the pt continues to refuse to take ordered 7.5mg Warfarin. the pt states he will only take Warfarin 5mg PO. the admitting hospitalist Dr Ha was
notified of above. the pt is also refusing to wear pulse oximeter or blood pressure cuff. this CAPACITOR INSPECTOR will continue to monitor the pt.
--- NOTE | 2024-02-25 00:15 | EDRN ---
the pt was placed into an inpatient hospital bed at this time per his request.
[2024-02-25] MEDS: COUMADIN 5 MG PO (00:49)
--- NOTE | 2024-02-25 00:50 | EDRN ---
the pt is tolerating drinking PO mali-mckay and apple juice without difficulty at this time. the pt denies any complaints. the pt was medicated per EMAR orders, see EMAR. will continue to monitor this pt.
[2024-02-25 03:36] VITALS: BP 141/85
[2024-02-25 03:45] VITALS: BP 157/83
--- NOTE | 2024-02-25 04:01 | PTCARENOTE ---
Attempted to complete admission intake. Pt became angry and belligerent, stating 'just look at the records, you will find all the information there'. Huffing, sighing and cursing. Explained that every patient is asked the same questions on every
admission. Pt refuses to answer questions and continues to yell at this RN. Situation relayed to primary RN.
[2024-02-25 06:06] LABS: % Basophils 0.8 % (0-2); % Eosinophils 2.8 % (0-6); % Immature Granulocytes 0.3 % (0-0.5); % Lymphocytes 35.5 % (20.5-51.1); % Monocytes 17.4 % (1.7-9.3); % Neutrophils 43.2 % (42.2-75.2); Absolute Eosinophils 0.1 10^3/uL (0-0.7); Absolute Lymphocytes 1.4 10^3/uL (1.2-3.4); Absolute Monocytes 0.7 10^3/uL (0.1-0.6); Absolute Neutrophils 1.7 10^3/uL (1.4-6.5); Hematocrit 41.1 % (39.0-52.0); Hemoglobin 14.4 g/dL (13.0-18.0); Mean Corpuscular Volume 94.1 fL (80.0-94.0); Mean Platelet Volume 10.2 fL (7.4-10.4); Nucleated Red Blood Cells % 0 % (-); Platelet Count 114 10^3/uL (130-400); Red Blood Cell Count 4.37 10^6/uL (4.70-6.10); Red Cell Dist. Width 12.3 % (11.5-14.5)
[2024-02-25 06:20] LABS: INR 1.64; PT 19.6 Sec (11.4-14.6)
[2024-02-25 06:39] LABS: ALT (SGPT) 19 U/L (0-50); AST (SGOT) 24 U/L (17-59); Albumin 3.9 g/dl (3.5-5.0); Alkaline Phosphatase 63 U/L (38-126); Blood Urea Nitrogen 14 mg/dl (9-20); Calcium 9.4 mg/dl (8.4-10.2); Carbon Dioxide 25 mmol/L (22-30); Chloride 106 mmol/L (98-107); Estimated Creatinine Clearance 55 ml/min; Glucose 92 mg/dl (70-99); Sodium 135 mmol/L (135-145); Total Bilirubin 1.4 mg/dl (0.2-1.3); Total Protein 6.4 g/dl (6.3-8.2); eGFR > 60.00
--- NOTE | 2024-02-25 08:17 | CON.GI ---
Consultation
-
Date/Time Consultation Requested: 02/24/242
Date/Time Consultation Performed: 02/25/24 0820
Requesting Provider: Nya VALENCIA
Performing Provider: Dr. Adler / Tia Hill PA-C
Reason for Consultation: gastritis/gastroparesis
Medical History
Chief Complaint / HPI
Chief Complaint: abdominal bloating, nausea, poor appetite
History of Present Illness:
This is an 88 year old male with a past medical history of eosinophilic esophagitis, h/o food impactions and esophageal perforation (2016, no surgery required), gastroparesis, GERD, pancreatic cyst, and h/o small bowel obstruction s/p small bowel
resection w lysis of adhesions (2020) who presents with complaints of abdominal bloating, poor appetite and nausea. He was recently admitted at from 02/05 to 02/08/24 for similar complaints and had a CT scan then showing gastric distention. NG tube
was placed for decompression and he was seen by General Surgery at that time who did not feel his symptoms were due to obstruction; he had a normal SBFT study, and was discharged. He states he felt well since discharge but a few days ago started to
feel bloating and nausea. He had an outpt followup with Dr. Concepcion on 02/14. He has an extensive cardiac history and is following with Cardiology as well, had a recent normal stress test. On this current admission, labs are essentially unremarkable.
Lipase is slightly elevated, however patient has no abdominal pain and imaging of the pancreas is normal with the exception of a known pancreatic cyst. CT scan shows moderate mucosal hyperenhancement and fold thickening in the stomach suspicious for
acute gastritis, without any gastric distention. Severe diverticulosis is noted in the sigmoid colon, but no evidence of small bowel or colonic distention. Rectum is noted to be mildly distended with air. Patient had a bowel movement 2 days ago and
he is passing gas currently. He denies any abdominal pain. He feels nauseous, but denies any vomiting, fever, chills, diarrhea, constipation or black/bloody stools. He does endorse weight loss, about 4 pounds per patient in the past few weeks.
He is known to our GI practice and follows with Dr. Acevedo, and was last seen in the office in September 2023. He has been compliant with taking pantoprazole 40mg once a day, but does admit to missing doses at times. He denies NSAID use, has 1 glass
or wine or beer a week, and does not smoke. He has known gastroparesis and did not tolerate Remeron due to side effects in the past. He has been counseled on adhering to the gastroparesis diet and eating small, frequent, low-fat meals. Last
endoscopy 10/2023 showed normal esophagus, stomach and duodenum with esophageal biopsies showing no eosinophils, but +moderate acute and chronic inflammation.
Medical history is otherwise notable for CAD with [facility] and CABG 2012, PE in 2019 (on warfarin), HTN, hyperlipidemia.
Past Medical History
Past Medical History: CAD, GERD, HTN, Hypercholesterolemia and Other (PE (on warfarin), eosinophilic esophagitis, Schatzki ring, prior esophageal perforation, gastroparesis, pancreatic cyst, h/o SBO s/p small bowel resection/lysis of adhesions)
Past Surgical History: Bowel Resection, Cardiac (CABG 2012), Orthopedic (lumbar fusion) and Urological (prostatectomy)
Social History
Tobacco: Non-Smoker
Alcohol: Occasional
Drug: None
Personal:
Living: With Family
Allergies / Home Medications
Allergy/AdvReac Type Severity Reaction Status Date / Time
promethazine [From Phenergan] Allergy hallucinati Verified 02/24/24 22:20
ons
�Medication �Instructions �Recorded
warfarin 5 mg tablet (Jantoven) 5 mg PO SUTUTHSA Blood clot 03/27/22
prevention/tx
warfarin 2.5 mg tablet (Jantoven) 2.5 mg PO MOWEFR Blood clot 03/28/22
prevention/tx
losartan 100 mg tablet 100 mg PO DAILY Blood Pressure 05/31/23
pantoprazole 40 mg tablet,delayed 40 mg PO DAILY Gastrointestinal 06/04/23
release Issue #0 tabs
acetaminophen 500 mg tablet 250 mg PO Q6H PRN neck pain 02/24/24
atorvastatin 10 mg tablet 10 mg PO HS 02/24/24
Review of Systems
-
History Source: Patient
All other systems: A 12 pt ROS was Negative except as stated above in HPI
Vital Signs
Temp Pulse Resp BP Pulse Ox
97.4 F 63 20 157/83 99
02/25/24 03:45 02/25/24 03:45 02/25/24 03:45 02/25/24 03:45 02/25/24 03:45
Physical Exam
Exam
General: Well Developed, Well Nourished and No Apparent Distress
Respiratory: Clear
Cardiac: Regular Rhythm
GI: Soft, Non Tender, Non Distended and Normal Bowel Sounds
Skin: Warm, Dry and Rash
Neuro: AO x 3
Psych: Calm
Results
WBC 4.0 10^3/uL (4.8-10.8) L 02/25/24 05:41
Hgb 14.4 g/dL (13.0-18.0) 02/25/24 05:41
Hct 41.1 % (39.0-52.0) 02/25/24 05:41
MCV 94.1 fL (80.0-94.0) H 02/25/24 05:41
Plt Count 114 10^3/uL (130-400) L 02/25/24 05:41
Absolute Neuts (auto) 1.7 10^3/uL (1.4-6.5) 02/25/24 05:41
PT 19.6 Sec (11.4-14.6) H 02/25/24 05:41
INR 1.64 02/25/24 05:41
Sodium 135 mmol/L (135-145) 02/25/24 05:41
Potassium 4.0 mmol/L (3.5-5.1) 02/25/24 05:41
Chloride 106 mmol/L (98-107) 02/25/24 05:41
Carbon Dioxide 25 mmol/L (22-30) 02/25/24 05:41
BUN 14 mg/dl (9-20) 02/25/24 05:41
Creatinine 0.9 mg/dL (0.7-1.3) 02/25/24 05:41
Calcium 9.4 mg/dl (8.4-10.2) 02/25/24 05:41
Total Bilirubin 1.4 mg/dl (0.2-1.3) H 02/25/24 05:41
AST 24 U/L (17-59) 02/25/24 05:41
ALT 19 U/L (0-50) 02/25/24 05:41
Alkaline Phosphatase 63 U/L (38-126) 02/25/24 05:41
Lipase 365 U/L (23-300) H 02/24/24 17:34
Diagnostic Image Results:
CT Abdomen/Pelvis 02/24/24:
1. Moderate mucosal hyperenhancement and fold thickening in the stomach suspicious for acute gastritis.
2. Severe diverticulosis in the sigmoid colon.
3. Moderate anterior urinary bladder wall thickening. Diagnostic possibilities are (1) chronic outlet obstruction, (2) cystitis, or (3) urothelial carcinoma.
4. Previous prostatectomy.
5. Sclerotic lesions in the T11 vertebral body and right pubic bone which appear unchanged suggesting bone islands and less likely osseous metastases.
6. Severe multilevel discogenic degenerative disease in the lumbar spine (L2/L3 through L5/S1).
7. Previous circumferential spinal fusion at L1/L2.
MRI Abdomen 08/12/23:
Unremarkable MRI of the abdomen.
PANCREAS: Unremarkable. Normal caliber pancreatic duct.
Gastric Emptying Scan 06/25/23:
Abnormal gastric emptying study with abnormally prolonged gastric emptying..
Prior GI Procedures:
EGD:
10/19/24, Dr. Acevedo
Normal esophagus.
- Z-line irregular, 45 cm from the incisors. Biopsied.
- Normal stomach.
- Normal examined duodenum.
06/03/23, Dr. Acevedo
- Normal esophagus.
- Widely patent, non-obstructing and mild Schatzki
ring. Dilated.
- Erythematous mucosa in the stomach. Biopsied.
- Normal examined duodenum. Biopsied.
- Biopsies were taken with a cold forceps for
evaluation of eosinophilic esophagitis.
Colonoscopy:
11/21/2018, Dr. Rao:
Diverticulosis in the sigmoid colon and in the descending colon.
Assessment / Plan
-
88 year old male with eosinophilic esophagitis, h/o food impactions and esophageal perforation (2016, no surgery required), gastroparesis, GERD, pancreatic cyst, and h/o small bowel obstruction s/p small bowel resection w lysis of adhesions (2020)
who presents with complaints of abdominal bloating, poor appetite and nausea, with recent admission for similar symptoms 02/05 to 02/08/24. CT scan then showing gastric distention. NG tube was placed for decompression and he was seen by General Surgery
who did not feel his symptoms were due to obstruction. Pt felt OK since discharge but a few days ago, c/o bloating and nausea. Current labs are essentially unremarkable. Lipase is slightly elevated, however patient has no abdominal pain and imaging
of the pancreas is normal with the exception of a known pancreatic cyst. CT scan shows moderate mucosal hyperenhancement and fold thickening in the stomach suspicious for acute gastritis, without gastric distention. Severe diverticulosis is noted in
the sigmoid colon, but no evidence of small bowel or colonic distention. Rectum noted to be mildly distended with air. Pt reports a bowel movement 2 days ago and he is passing gas currently. He denies any abdominal pain. He feels nauseous, but
denies any vomiting, fever, chills, diarrhea, constipation or black/bloody stools. He does endorse weight loss, about 4 pounds per patient in the past few weeks.
He is known to our GI practice and follows with Dr. Acevedo, and was last seen in the office in September 2023. He has been compliant with taking pantoprazole 40mg once a day, but does admit to missing doses at times. He denies NSAID use, has 1 glass
or wine or beer a week, and does not smoke. He has known gastroparesis and did not tolerate Remeron due to side effects in the past. He has been counseled on adhering to the gastroparesis diet and eating small, frequent, low-fat meals. Last
endoscopy 10/2023 showed normal esophagus, stomach and duodenum with esophageal biopsies showing no eosinophils, but +moderate acute and chronic inflammation.
Medical history is otherwise notable for CAD with [facility] and CABG 2012, PE in 2019 (on warfarin), HTN, hyperlipidemia.
IMPRESSION / PLAN:
Gastritis/Gastroparessis
- pt has no abdominal pain with benign exam; suspect the bloating and nausea are secondary to gastroparesis
- continue PPI, Pantoprazole 40mg IV
- Reglan 10mg IV
- full liquid diet, can advance as tolerated
Eosinophilic Esophagitis
- no complaints of dysphagia
- last EGD showed no eosinophils on biopsy on pantoprazole 40mg
- continue PPI
- outpatient follow up with Dr. Acevedo
Other medical conditions managed as per hospitalist.
-
-
Thank you for consultation and allowing me to participate in the patient's care. Please call the instrumentation instructor GI physician during the after hours with any questions or concerns.
[2024-02-25 08:45] VITALS: BP 153/89
[2024-02-25] MEDS: ZOFRAN 4 MG IV (08:45)
[2024-02-25] MEDS: TYLENOL 250 MG PO (09:27)
[2024-02-25] MEDS: PROTONIX 40 MG PO (09:30)
[2024-02-25] MEDS: COZAAR 100 MG PO (09:30)
--- NOTE | 2024-02-25 09:44 | CM ---
Patient seen at bedside, patient is here as OBS, CM reviewed with patient, signed form placed on chart. Per prior chart review, patient lives with his spouse in a split level home with no steps to enter and 5 steps on each floor, patient was
independent with adl's and ambulation, patient had a walker that he does not use. Patient has a prescription plan and uses [facility]., Patient PCP is Dr. Desir. Patient indicated that he is very annoyed at the number of times he is asked the
same questions and simply stated that he had no changes from the last admission. Patient indicated that she was not anticipating patient discharge before 'they figure out what is wrong'. CM will continue to follow for discharge planning needs.
Plan; Home when stable, no needs vs home with VN
--- NOTE | 2024-02-25 11:11 | W.PN.HOSP.TC ---
Today's Communication/Plan
-
Diet as tolerated
Bladder scan
Await GI input
Assessment / Plan
Assessment / Plan
Gen-AAOx3, NAD
HEENT-NC, AT, anicteric, clear oral mm
Neck-supple
CV-reg, no M, +S1/S2
Lungs-clear B/L
Abd-soft, NT, ND
Ext-no edema
Musculoskeletal-no cyanosis, clubbing
Skin-warm and dry
Neuro-grossly non-focal
Psych-calm, cooperative
Gastroparesis -likely explanation for his presentation. GI consult noted. Full liquid diet ordered. Will clarify with GI service whether patient tolerated Reglan in the past. Patient himself cannot provide any information as he has some
cognitive impairment and does not recall. CT of the chest and abdomen on presentation did not show any bowel obstruction. Suspicion of acute gastritis was raised. Did show moderate anterior urinary bladder wall thickening. Will check bladder
scan.
Continue Protonix.
History of pulmonary embolism -INR subtherapeutic. I question his compliance with warfarin.
CAD -atypical chest pain. Troponins negative. Follow-up with cardiology.
Essential hypertension -stable.
Hyperlipidemia -continue atorvastatin.
GERD/hiatal hernia
Full code
Updated at the bedside.
Anticipated Discharge: Within 24 hours
Subjective/Interval History
-
Date of Service: February 25, 2024
Patient seen and examined. Currently denies any symptoms. Asking about discharge later today. Feels hungry.
Objective Data
-
Labs:
Laboratory Results
02/25/24
05:41
WBC 4.0 L
Hgb 14.4
Hct 41.1
Plt Count 114 L
PT 19.6 H
INR 1.64
Sodium 135
Potassium 4.0
Chloride 106
Carbon Dioxide 25
BUN 14
Creatinine 0.9
Glucose 92
Calcium 9.4
Total Bilirubin 1.4 H
AST 24
ALT 19
Alkaline Phosphatase 63
Vital Signs:
Vital Signs
Temp Pulse Resp BP Pulse Ox
97.5 F 68 16 153/89 97
02/25/24 08:45 02/25/24 09:30 02/25/24 08:45 02/25/24 09:30 02/25/24 08:45
Review of Systems
-
History Source: Patient
All other systems: Reviewed and negative
[2024-02-25 12:05] VITALS: BP 146/75
[2024-02-25] MEDS: REGLAN 10 MG IV ×2 (12:26→17:05)
[2024-02-25 16:23] VITALS: BP 125/69
--- NOTE | 2024-02-25 17:12 | W.DS.TRANS ---
DC Summary - [employer]
-
Discharge Instructions:
Discharge Diagnosis/Procedures Gastroparesis
Diet Low Fat
Activity As tolerated
Driving Restrictions As prior to admission
Bathing Restrictions None
Instructions:
Stand-Alone Forms:
Changes to Home Medications: No
Discharge Medications:
DC Medications w/original date entered in [facility]
warfarin 5 mg tablet (Jantoven) 5 mg PO SUTUTHSA Blood clot prevention/tx 03/27/22
warfarin 2.5 mg tablet (Jantoven) 2.5 mg PO MOWEFR Blood clot prevention/tx 03/28/22
losartan 100 mg tablet 100 mg PO DAILY Blood Pressure 05/31/23
pantoprazole 40 mg tablet,delayed release 40 mg PO DAILY Gastrointestinal Issue #0 tabs 06/04/23
acetaminophen 500 mg tablet 250 mg PO Q6H PRN neck pain 02/24/24
atorvastatin 10 mg tablet 10 mg PO HS High Cholesterol 02/24/24
ondansetron 4 mg disintegrating tablet 4 mg PO Q6H PRN nausea and vomiting #14 tabs 02/25/24
Home Medication Changes
Pending Results: No
--- NOTE | 2024-02-25 18:35 | PTCARENOTE ---
Rn Flow investigations chief- Patient cleared for d/c. Patient left department in wheelchair to wait in d/c lounge.
== END 2024-02-25 18:38 | disposition home or self-care (01) ==
LOC: 3 WEST ACU 22:19
PROVIDERS: Clinical Nurse Specialist Family Health; Emergency Medicine; Physician Assistant; ADMITTING PHYSICIAN Hospitalist; ATTENDING PHYSICIAN Hospitalist; EMERGENCY PHYSICIAN Emergency Medicine; FAMILY PHYSICIAN Family Medicine; OTHER PHYSICIAN Internal Medicine
DX: K31.84 Gastroparesis (principal); I25.10 Atherosclerotic heart disease of native coronary artery without angina pectoris; I10 Essential (primary) hypertension; K44.9 Diaphragmatic hernia without obstruction or gangrene; K21.00 Gastro-esophageal reflux disease with esophagitis, without bleeding; K22.2 Esophageal obstruction; E78.00 Pure hypercholesterolemia, unspecified; I25.2 Old myocardial infarction; K57.30 Diverticulosis of large intestine without perforation or abscess without bleeding; R79.1 Abnormal coagulation profile; M51.36 Other intervertebral disc degeneration, lumbar region; K20.0 Eosinophilic esophagitis; Z53.29 Procedure and treatment not carried out because of patient's decision for other reasons; Z79.01 Long term (current) use of anticoagulants; Z79.899 Other long term (current) drug therapy; Z85.46 Personal history of malignant neoplasm of prostate; Z86.711 Personal history of pulmonary embolism; Z95.1 Presence of aortocoronary bypass graft; Z98.1 Arthrodesis status
CPT/HCPCS: 71046; 74177; 80053; 81003; 83690; 84484; 85025; 85610; 93005; 96374; 96375; 99285; G0378; Q9967

== ENCOUNTER → 2024-04-23 07:01 | Outpatient (REF) | payer OTHER, SELFPAY | LOC: MRI 07:01 | PROVIDERS: ATTENDING PHYSICIAN Orthopaedic Surgery; FAMILY PHYSICIAN Family Medicine | DX: M54.16 Radiculopathy, lumbar region (principal) | CPT/HCPCS: 72148 ==

== ENCOUNTER 2024-06-24 19:35 | Inpatient (IN) | payer OTHER, SELFPAY ==
[2024-06-24] VITALS (11 sets, daily range): BP systolic 161–212; BP diastolic 79–107; BMI 22.8; BMI 22.1
[2024-06-24] MEDS: MORPHINE SULFATE 4 MG IV ×2 (15:02→21:59)
[2024-06-24] MEDS: ZOFRAN 4 MG IV (15:02)
--- NOTE | 2024-06-24 15:26 | ED.GENMED ---
History of Present Illness
General
Chief Complaint: Abdominal Pain
Source: patient and spouse
Exam Limitations: none
Time Seen by Provider: 06/24/24 14:51
Nursing documentation reviewed up to this point in time: agreed with
History of Present Illness
History of Present Illness:
89-year-old male with past medical history as document presents to the emergency room for evaluation of abdominal pain. Patient reports onset of symptoms gradually over the past few hours and have been worsening since then. He reports that he woke
up and did not have pain, ate breakfast which included eggs and then over the course of the late morning early afternoon began having progressive right sided abdominal pain. No clear exacerbating or relieving factors noted. He reports associated
nausea but no vomiting. He denies any diarrhea or constipation in fact he says he had a normal bowel movement earlier today. He denies any dysuria, hematuria, change in urinary frequency. He denies any other complaints. He does have a prior
history of bowel obstruction but says that the symptoms feel distinct. He has multiple prior abdominal surgeries including small bowel resection in the past secondary to bowel obstruction.
Past History
Past History
ED Past Medical History: CAD, GERD, HTN, Hypercholesterolemia and Other (hiatal hernia, PE)
ED Past Surgical History: Cardiac (CABG 2012), Orthopedic (Lumbar fusion), Urological (Prostatectomy) and Other (Mouth growth removed, esophageal procedure to fix a tear)
Patient has exhibited threatening behavior?: No
PSI?: No
Social History
Tobacco: Non-smoker
Alcohol: None
Drug: None
Personal:
Living: with family
Employment: Retired
Family History
Family History: Hypertension
Review of Systems
Review of Systems
All Other Systems: ROS reviewed and negative except as documented in HPI and ROS
Constitutional: Denies fever or chills
Respiratory: Denies cough or trouble breathing
Cardiac: Denies chest pain or palpitations
ABD/GI: Reports abdominal pain and nausea; Denies vomiting or diarrhea
: Denies dysuria, frequency or flank pain
Musculoskeletal: Denies neck pain or back pain
Neurological: Denies dizzy or headache
Phy Exam
Physical Exam
Physical Exam:
General: Awake, alert, oriented x3; appears uncomfortable holding his right side
Head: Normocephalic, atraumatic
Eyes: Conjunctiva normal, sclera anicteric
Throat: Airway intact, handling secretions
Neck: Trachea midline, supple without meningismus
Lungs: Clear to auscultation bilaterally, no wheezing, rales, rhonchi
Heart: Regular rate and rhythm, no murmurs, gallops, or rubs
Abd: Soft, non distended, tender to palpation right upper and right lower quadrant with some voluntary guarding, no palpable masses
Back: No CVA tenderness
Neuro: No gross deficits
Skin: no rash
Extremities: No edema in extremities, warm well-perfused
Scores
Heart Failure Risk
Heart Failure Risk Score: Not Applicable
Heart Score for Chest Pain Patients
STEMI patient?: Not applicable
Withdrawal Assessment of Alcohol
Withdrawal Assessment Completed?: Not applicable
Course
Orders/Labs/Results
Orders:
Orders
06/24/24 14:52
Urinalysis Reflex To Culture Urgent
06/24/24 14:57
CT Abd/pelvis W Iv Cont Urgent
Comment:
Reason For Exam: right sided abd pain
Morphine Sulfate 4 mg IV NOW STA
Ondansetron Injectable [Zofran] 4 mg IV NOW STA
06/24/24 15:01
Complete Blood Count/With Diff Urgent
Comprehensive Metabolic Panel Urgent
Lipase Urgent
06/24/24 15:18
INR [Prothrombin Time] Urgent
Vital Signs
Initial and Last Documented VS:
Initial Vital Signs
Temp Pulse Resp BP Pulse Ox
36.4 C 72 16 200/97 98
06/24/24 13:56 06/24/24 13:56 06/24/24 13:56 06/24/24 13:56 06/24/24 13:56
Last Documented Vital Signs
Temp Pulse Resp BP Pulse Ox
36.4 C 60 24 188/84 99
06/24/24 13:56 06/24/24 15:15 06/24/24 15:15 06/24/24 15:14 06/24/24 15:15
MDM/Problems Addressed
Differential Diagnosis Includes:
Cholecystitis/cholelithiasis, bowel obstruction, appendicitis, pancreatitis, gastritis
MDM/Problems Addressed:
89-year-old male with history as above presents for evaluation of right-sided abdominal pain gradually worsening since this morning. Associated nausea but no vomiting. Had a normal bowel movement this morning. Hypertensive but otherwise normal
vitals. Plan to place an IV check labs including a CBC and a CMP, lipase. Will check urinalysis. Will send for CT abdomen pelvis. Will treat pain and nausea. Monitor closely reassess after the above.
Acute Exacerbation and/or Progression of Chronic Illness:
Acutely hypertensive suspect pain related�will treat pain but hold on emergent antihypertensive treatment for now
Acute Exacerbation and/or Progression of Chronic Illness: HTN
*Radiology
Radiology exam reviewed: radiology read reviewed
*Pulse Oximetry
Patient hypoxic: no
*Critical Care Note
Total Time (30-74mins, 75-104mins- exclusive of procedures): Not Applicable
Data Reviewed
Source: patient, records and spouse
ED Attending Note
-
Portions of this chart may have been created with voice recognition software.� Occasional wrong word or��sound alike� substitutions may have occurred due to the inherent limitations of voice recognition software.
Discharge Plan
Departure
Prescriptions:
No Action
warfarin [Jantoven] 5 MG tablet
5 mg PO SUTUTHSA
warfarin [Jantoven] 2.5 MG tablet
2.5 mg PO MOWEFR
losartan 100 MG tablet
100 mg PO DAILY
pantoprazole 40 MG tablet,delayed release (DR/EC)
40 mg PO DAILY Qty: 0 0RF
atorvastatin 10 mg Tablet
10 mg PO HS
acetaminophen 500 mg Tablet
250 mg PO Q6H PRN (Reason: neck pain)
ondansetron 4 mg tablet,disintegrating
4 mg PO Q6H PRN (Reason: nausea and vomiting) Qty: 14 0RF
Referrals:
Paul Desir MD [Family Provider] -
Interventions
Interventions:
*Risk Screen - Suicide Last Done: 06/24/24 13:58
*General Assessment Last Done: 06/24/24 13:58
*Neglect/Abuse Screening Last Done: 06/24/24 13:58
ED- Fall Risk Assessment Last Done: 06/24/24 15:17
SC-Dmxevm-Ynqeuxczqc Assessment Last Done: 06/24/24 15:20
Discharge Date and Time
Print Language: KOREAN
[2024-06-24 15:30] LABS: % Basophils 0.9 % (0-2); % Eosinophils 2.4 % (0-6); % Immature Granulocytes 0.2 % (0-0.5); % Lymphocytes 21.8 % (20.5-51.1); % Monocytes 14.9 % (1.7-9.3); % Neutrophils 59.8 % (42.2-75.2); Absolute Eosinophils 0.1 10^3/uL (0-0.7); Absolute Lymphocytes 0.9 10^3/uL (1.2-3.4); Absolute Monocytes 0.6 10^3/uL (0.1-0.6); Absolute Neutrophils 2.5 10^3/uL (1.4-6.5); Hematocrit 43.8 % (39.0-52.0); Hemoglobin 15.8 g/dL (13.0-18.0); Mean Corp Hgb Conc. 36.1 g/dL (33.0-37.0); Mean Corpuscular Hgb 33.1 pg (27.0-31.0); Mean Corpuscular Volume 91.6 fL (80.0-94.0); Mean Platelet Volume 10.5 fL (7.4-10.4); Nucleated Red Blood Cells % 0 % (-); Platelet Count 123 10^3/uL (130-400); Red Blood Cell Count 4.78 10^6/uL (4.70-6.10); Red Cell Dist. Width 12.4 % (11.5-14.5); White Blood Cell Count 4.2 10^3/uL (4.8-10.8)
[2024-06-24 15:39] LABS: INR 2.19; PT 24.2 Sec (11.4-14.6)
[2024-06-24 15:42] LABS: ALT (SGPT) 19 U/L (0-50); AST (SGOT) 28 U/L (17-59); Albumin 4.5 g/dl (3.5-5.0); Alkaline Phosphatase 79 U/L (38-126); Blood Urea Nitrogen 23 mg/dl (9-20); Calcium 10.1 mg/dl (8.4-10.2); Carbon Dioxide 28 mmol/L (22-30); Chloride 102 mmol/L (98-107); Estimated Creatinine Clearance 56 ml/min; Glucose 132 mg/dl (70-99); Lipase 286 U/L (23-300); Potassium 4.3 mmol/L (3.5-5.1); Sodium 138 mmol/L (135-145); Total Protein 6.8 g/dl (6.3-8.2); eGFR > 60.00
--- NOTE | 2024-06-24 18:07 | HPS.HSE ---
Addendum entered and electronically signed by Kei Tinajero MD 06/24/24 18:55:
88-year-old male with a past medical history of PE on Coumadin, gastroparesis, esophageal stricture status post dilation, CAD with [place] and CABG 2012, and partial SBO status post surgery [address] Concepcion presents with acute onset of abdominal pain
when he woke up this morning. He had a bowel movement at 9 AM. His abdominal pain worsen, and progressed.
NG tube inserted in the ER. Will treat with bowel rest, n.p.o., IV fluids, antiemetics as needed. Consult general surgery.
Hold Coumadin, start therapeutic Lovenox tomorrow morning 70 mg every 12 hours.
He is hypertensive, will order IV hydralazine as needed.
I have personally seen and examined the patient, and agree with the plan of care as documented by ANNIE Covarrubias
Advance care planning discussed, patient is a full code.
All other issues as outlined by the advanced care practitioner.
Total time spent to see the patient on the floor, examine the patient, review data and lab results, discuss treatment plan with patient, nursing staff around 78 minutes.
Original Note:
Family Physician
-
Family Physician: Paul Desir
Chief Complaint
-
Abdominal pain, nausea
History of Present Illness
89-year-old male complaining of abdominal pain gradually over the past few hours he reports being able to eat breakfast which included eggs then this afternoon developing right-sided abdominal pain associated with nausea but no vomiting. He denies
diarrhea, constipation, fever, chills, chest pain, palpitations, shortness breath, cough, urinary symptoms. He has history of prior small bowel obstruction secondary to adhesions requiring lysis.
He has past medical history SBO with SBO lysis of adhesions, diverticulosis sigmoid colon, gastroparesis, PE 2019 on chronic Coumadin, HTN�benign, HLD, GERD, hiatal hernia, Schatzki's ring, esophagitis, CAD/[place]/CABG 2012, multilevel DDD lumbar spine,
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
Medical History
Past Medical History
Past Medical History: Reports Other
Additional Past Medical History:
HTN
HLD
Esophageal stricture Schatzki's ring status post EGD dilation May 2023
Gastroparesis
Dysphagia
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
Hiatal hernia
GERD
CAD/[place]/CABG 2012
Pulmonary embolism 2020 chronic Coumadin,
SBO/SBO lysis of adhesions
Diverticulosis sigmoid colon
Multilevel DDD lumbar spine
Sclerotic lesions T11 right pubic bone
Prostate cancer status post prostatectomy
Past Surgical History: Reports Other
Additional Past Surgical History:
CABG 2012
Lumbar fusion
Prostatectomy
Esophageal tear repair, esophageal dilation
Oral mouth growth removal
SBO lysis of adhesions
Hernia repair
Social History
Tobacco: Non-smoker
Alcohol: None
Drug: None
Personal:
Living: With Family ( Stephanie)
Employment: Retired
Family History
Family History: Other (Mother CAD/CABG age 95, father CAD/CABG age 86)
Allergies / Home Medications
Allergies reflects when Allergies were last updated in [facility].
Home Medications with original date entered in [facility]
Allergy/Medication List:
Allergies
Allergy/AdvReac Type Severity Reaction Status Date / Time
promethazine [From Phenergan] Allergy hallucinati Verified 06/24/24 13:56
ons
Home Medications
warfarin 5 mg tablet (Jantoven) 5 mg PO SUTUTHSA@1700 Blood clot prevention/tx 03/27/22
warfarin 2.5 mg tablet (Jantoven) 2.5 mg PO MOWEFR@1700 Blood clot prevention/tx 03/28/22
losartan 100 mg tablet 100 mg PO DAILY Blood Pressure 05/31/23
atorvastatin 10 mg tablet 10 mg PO HS High Cholesterol 02/24/24
carboxymethylcellulose 0.5 %-glycerin 0.9 % eye drops (Refresh Optive) 1 drp BOTH EYES BIDPRN PRN dryness 06/24/24
pantoprazole 40 mg tablet,delayed release 40 mg PO DAILYPRN PRN gerd 06/24/24
Review of Systems
-
History Source: Patient
A 12 point ROS was completed and negative except as noted: Yes
Constitutional: Denies Fever or Chills
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
Respiratory: Denies Cough or Trouble Breathing
Cardiac: Denies Chest Pain, Diaphoresis, Palpitations or Syncope
Abdomen/GI: Reports Abdominal Pain and Nausea; Denies Vomiting, Diarrhea, Constipated or Bloody Stools
: Denies Dysuria, Frequency, Flank Pain, Incontinence, Difficulty Voiding or Urgency
Musculoskeletal: Denies Joint Pain or Edema
Skin: Denies Itching or Rash
Neurological: Denies Dizzy or Headache
Endocrine: Reports No Symptoms
Hematologic/Lymphatic: Reports No Symptoms
Psych: Reports Calm
Physical Exam
Vital Signs
Vital Signs
Temp Pulse Resp BP Pulse Ox
97.6 F 58 20 190/80 96
06/24/24 13:56 06/24/24 16:00 06/24/24 16:00 06/24/24 16:00 06/24/24 16:00
Physical Exam
General: Comfortable and Conversant; No Pain, Fever or Chills
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
Respiratory: Clear; No Wheezes, Rales or Rhonchi
Cardiac: S1/S2 and Regular Rhythm; No Murmur, Rub, Gallop or Peripheral Edema
GI: Soft, Non Tender, Non Distended, Normal Bowel Sounds and No Hepatosplenomegaly
Rectal: Deferred by Provider
Genito-urinary: Deferred by me
Musculoskeletal: No Clubbing, No Cyanosis and No Edema
Skin: Warm and Dry; No Rash
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
Psych: Calm
Laboratory Results
-
06/24/24 15:01
06/24/24 15:01
Laboratory Results
PT 24.2 Sec (11.4-14.6) H 06/24/24 15:18
INR 2.19 06/24/24 15:18
Total Bilirubin 1.0 mg/dl (0.2-1.3) 06/24/24 15:01
AST 28 U/L (17-59) 06/24/24 15:01
ALT 19 U/L (0-50) 06/24/24 15:01
Alkaline Phosphatase 79 U/L (38-126) 06/24/24 15:01
Lipase 286 U/L (23-300) 06/24/24 15:01
Impression/Plan
-
Impression/plan:
Admit to MedSurg
#SBO
#Hx SBO with lysis of adhesions
#Diverticulosis sigmoid colon Hx
-N.p.o.
-NG tube to low intermittent suction -350 cc obtained via insertion at bedside by nurse
-Consult surgery
-IV Zofran
-IV pain control
-IV NSS
CT abdomen pelvis with IV contrast:
1. Changes of prior partial small bowel resection with mild gastric distention, fluid-filled loops of small bowel extending to the pelvis likely due to early or partial small bowel obstruction
2. Colonic diverticulosis without diverticulitis
#Chronic thrombocytopenia unclear
PLT 123 appears near baseline
# Chronic gastritis/Gastroparesis
#Hx gastroparesis
#Hiatal hernia Hx
#Hx Pulmonary embolism 2019
INR 2.19
-Patient normally on Coumadin current meds on hold
-Will give therepeutic lovenox 70mg q12
#CAD/[place]/CABG 2012
#Chronic ongoing chest pain
-Had evaluation recent admission January 2024 deemed low likelihood of any ischemia
Cardiac catheterization in March 2022 found patent vein grafts and an underfilled MCCLOUD that did not require revascularization for rest pain and not felt to represent angina. Stress test 01/27/2024 is normal.
-Hold statin, Coumadin, losartan due to n.p.o. status
#Urinary bladder wall thickening per CT
#Prostate cancer status post prostatectomy
-Monitor urine output
#GERD
#Esophageal stricture, Schatzki's ring status post EGD dilation May 2023
#Dysphagia Hx
-Continue IV Protonix 40 mg daily
#HTN benign
BP 190/80
IV hydralazine 10 mg now then 10 mg every 6 hours SBP greater than 165
-Hold losartan 100 mg daily
#HLD
-Hold atorvastatin 10 mg at bedtime
Other PMH:
Multilevel DDD lumbar spine
Sclerotic lesions T11 right pubic bone
DVT prophylaxis
will do sq lovenox q12h
Full code
[2024-06-24] MEDS: NSS 500 IV ×2 (18:27→18:56)
[2024-06-24 18:33] LABS: Urine Albumin Trace (Neg - Trace); Urine Bilirubin Negative (Negative); Urine Character Clear (Clear); Urine Color Yellow; Urine Glucose Negative (Negative); Urine Ketone 1+ (Negative); Urine Leukocyte Negative (Negative); Urine Nitrite Negative (Negative); Urine Occult Blood Negative (Negative); Urine Urobilinogen Negative (Neg - 1+)
[2024-06-24] MEDS: APRESOLINE 10 MG IV (18:51)
[2024-06-24] MEDS: PROTONIX IV 40 MG IV (18:54)
[2024-06-24] MEDS: MORPHINE SULFATE 2 MG IV (20:07)
--- NOTE | 2024-06-24 20:18 | PTCARENOTE ---
Pt arrived from ED via stretcher, ambulated x1 assist to bed. aaox3, cooperative, [place]. R nare NGT draining brown/red liquid. C/o moderate abdominal pain, states 'They just gave me pain medication.' Denies nausea. oriented to room. call nelson within
reach.
--- NOTE | 2024-06-24 22:00 | PTCARENOTE ---
Pt drained approx. 500ml brown/reddish through NGT. Denies nausea. c/o severe abd pain, states 'this hurts more than my other obstructions.' GI contents heme +. House [facility] made aware. stat labs ordered.
2300 Pt c/o severe abd pain, states 'that medicine didn't do anything.' Jake [employer] made aware. dilaudid ordered. VSS.
[2024-06-24 22:55] LABS: Hematocrit 43.9 % (39.0-52.0); Mean Corp Hgb Conc. 36.4 g/dL (33.0-37.0); Mean Corpuscular Hgb 33.1 pg (27.0-31.0); Mean Corpuscular Volume 90.7 fL (80.0-94.0); Mean Platelet Volume 10.7 fL (7.4-10.4); Platelet Count 143 10^3/uL (130-400); Red Blood Cell Count 4.84 10^6/uL (4.70-6.10); Red Cell Dist. Width 12.5 % (11.5-14.5); White Blood Cell Count 6.5 10^3/uL (4.8-10.8)
[2024-06-24 23:15] LABS: Blood Urea Nitrogen 18 mg/dl (9-20); Calcium 9.7 mg/dl (8.4-10.2); Carbon Dioxide 24 mmol/L (22-30); Chloride 105 mmol/L (98-107); Estimated Creatinine Clearance 54 ml/min; Glucose 134 mg/dl (70-99); Potassium 4.7 mmol/L (3.5-5.1); Sodium 136 mmol/L (135-145); eGFR > 60.00
[2024-06-24] MEDS: DILAUDID 0.5 MG IV (23:21)
[2024-06-24] MEDS: NSS 1000 IV (23:24)
[2024-06-25] MEDS: NSS 1000 IV ×2 (05:31→16:24)
[2024-06-25 07:14] VITALS: BP 182/89
[2024-06-25 07:40] VITALS: BP 162/90
[2024-06-25] MEDS: NSS (PRESERVATIVE FREE) 10 ML IV (08:07)
[2024-06-25] MEDS: PROTONIX IV 40 MG IV (08:08)
[2024-06-25] MEDS: LOVENOX SC (08:09)
--- NOTE | 2024-06-25 08:21 | W.PN.HOSP.TC ---
Today's Communication/Plan
-
see bold
Assessment / Plan
Assessment / Plan
HPI: 88-year-old male with a past medical history of PE on Coumadin, gastroparesis, esophageal stricture status post dilation, CAD with [place] and CABG 2012, and partial SBO status post surgery [address] Concepcion presents with acute onset of abdominal
pain when he woke up this morning. He had a bowel movement at 9 AM. His abdominal pain worsen, and progressed.
CT abdomen pelvis with IV contrast:
1. Changes of prior partial small bowel resection with mild gastric distention, fluid-filled loops of small bowel extending to the pelvis likely due to early or partial small bowel obstruction
2. Colonic diverticulosis without diverticulitis
#Acute partial small bowel obstruction
Hx of partial SBO status post surgery [address] Concepcion
Continue NG tube, n.p.o., IV fluids, antiemetics as needed, pain meds as needed
General Surgery consulted
#History of pulmonary embolism in 2019
Hold Coumadin, continue therapeutic Lovenox 70 mg subcu every 12 hours
# Hypertensive urgency
IV hydralazine 10 mg now then 10 mg every 6 hours SBP greater than 160
Hold losartan 100 mg daily
#Chronic gastritis/Gastroparesis
#GERD
#Esophageal stricture, Schatzki's ring status post EGD dilation May 2023
#Dysphagia Hx
#Hx gastroparesis
#Hiatal hernia Hx
Continue IV Protonix
#Chronic thrombocytopenia
Monitor platelets
#CAD/[place]/CABG 2012
#Chronic ongoing chest pain
-Had evaluation recent admission January 2024 deemed low likelihood of any ischemia
Cardiac catheterization in March 2022 found patent vein grafts and an underfilled MCCLOUD that did not require revascularization for rest pain and not felt to represent angina. Stress test 01/27/2024 is normal.
-Hold statin, Coumadin, losartan due to n.p.o. status
#Urinary bladder wall thickening per CT
#Prostate cancer status post prostatectomy
-Monitor urine output
#HLD
-Hold atorvastatin 10 mg at bedtime
Other PMH:
Multilevel DDD lumbar spine
Sclerotic lesions T11 right pubic bone
DVT prophylaxis�therapeutic Lovenox
Full code
Total time spent to see the patient on the floor, examine the patient, review data and lab results, discuss treatment plan with patient, nursing staff around 50 minutes.
Physical Exam
General: Appears to not feel well, no acute distress
HEENT: Normocephalic, Atraumatic, EOMI, MMM
Respiratory: Clear to Auscultation bilaterally
Cardiac: Normal S1/S2, Regular Rate and Rhythm
GI: Soft, diffuse tenderness, hypoactive bowel sounds
Extremities: No Clubbing, Cyanosis, or Edema
Neuro: Nonfocal/Grossly Intact
Anticipated Discharge: > 48 hours
Subjective/Interval History
-
Date of Service: June 25, 2024
Patient reports continued abdominal pain. He is having nausea. No gas, no stools. No fever.
Objective Data
-
Labs:
Laboratory Results
06/24/24 06/25/24 06/25/24
22:49 00:00 08:19
WBC 6.5
Hgb 16.0 Cancelled
Hct 43.9 Cancelled
Plt Count 143
PT Pending
INR Pending
Sodium 136
Potassium 4.7
Chloride 105
Carbon Dioxide 24
BUN 18
Creatinine 0.9
Glucose 134 H
Calcium 9.7
Total Bilirubin
AST
ALT
Alkaline Phosphatase
06/25/24
08:20
WBC Pending
Hgb Pending
Hct Pending
Plt Count Pending
PT
INR
Sodium Pending
Potassium Pending
Chloride Pending
Carbon Dioxide Pending
BUN Pending
Creatinine Pending
Glucose Pending
Calcium Pending
Total Bilirubin Pending
AST Pending
ALT Pending
Alkaline Phosphatase Pending
Vital Signs:
Vital Signs
Temp Pulse Resp BP Pulse Ox
98.6 F 75 15 182/89 96
06/25/24 07:14 06/25/24 07:14 06/25/24 07:14 06/25/24 07:14 06/25/24 07:14
I&O
06/24/24 06/25/24 06/26/24
06:59 06:59 06:59
Intake Total 1000 / 1000
Output Total 350 / 350
Balance 650 / 650
[2024-06-25] MEDS: LOVENOX 70 MG SC ×2 (09:16→21:15)
[2024-06-25 09:44] LABS: % Basophils 0.3 % (0-2); % Eosinophils 0.4 % (0-6); % Immature Granulocytes 0.5 % (0-0.5); % Lymphocytes 14.7 % (20.5-51.1); % Monocytes 11.6 % (1.7-9.3); % Neutrophils 72.5 % (42.2-75.2); Absolute Lymphocytes 1.1 10^3/uL (1.2-3.4); Absolute Monocytes 0.9 10^3/uL (0.1-0.6); Absolute Neutrophils 5.5 10^3/uL (1.4-6.5); Hematocrit 43.5 % (39.0-52.0); Hemoglobin 15.2 g/dL (13.0-18.0); Mean Corp Hgb Conc. 34.9 g/dL (33.0-37.0); Mean Corpuscular Hgb 32.5 pg (27.0-31.0); Mean Corpuscular Volume 93.1 fL (80.0-94.0); Mean Platelet Volume 11.4 fL (7.4-10.4); Nucleated Red Blood Cells % 0 % (-); Platelet Count 116 10^3/uL (130-400); Red Blood Cell Count 4.67 10^6/uL (4.70-6.10); Red Cell Dist. Width 12.6 % (11.5-14.5); White Blood Cell Count 7.6 10^3/uL (4.8-10.8)
[2024-06-25 10:09] LABS: ALT (SGPT) 16 U/L (0-50); AST (SGOT) 29 U/L (17-59); Alkaline Phosphatase 62 U/L (38-126); Blood Urea Nitrogen 16 mg/dl (9-20); Calcium 9.1 mg/dl (8.4-10.2); Carbon Dioxide 21 mmol/L (22-30); Chloride 106 mmol/L (98-107); Estimated Creatinine Clearance 61 ml/min; Glucose 96 mg/dl (70-99); Potassium 4.2 mmol/L (3.5-5.1); Sodium 136 mmol/L (135-145); Total Bilirubin 1.5 mg/dl (0.2-1.3); Total Protein 6.1 g/dl (6.3-8.2); eGFR > 60.00
[2024-06-25 10:47] LABS: INR 2.02; PT 22.7 Sec (11.4-14.6)
--- NOTE | 2024-06-25 12:16 | CON.GS ---
Medical History
-
Chief Complaint: abdominal pain
History of Present Illness:
This is an 89 yo male with h/o gastroparesis, esophageal stricture with last dilation 05/2023, CAD with NE and CABG 2012 (recent stress testing without abnormality), PE in 2019 on warfarin, prior SBO's with SBO requiring surgery 03/2021 with ex
lap/sbr, left hernia repair 2020 and recently admitted in February for SBO which resolved without surgery, presenting with nausea and vomiting with abdominal pain which developed yesterday afternoon. An NGT was placed in the ED with improvement in pain
and nausea. He has been afebrile.
Past Medical History
Past Medical History: CAD (NE), GERD (hiatal hernia), HTN, Hypercholesterolemia and Other (gastroperesis, esophageal stricture with last dilation 05/2023, PE in 2019 on chronic warfarin)
Past Surgical History: Bowel Resection (03/2021 ex lap, timothy with sbr with Dr. Concepcion), Cardiac (CABG 2012), Hernia Repair (Left indirect inguinal with mesh [address] Noble), Orthopedic (lumbar fusion), Urological (Prostatectomy) and Other
(05/2023 EGD with dilatation of Schatzki's ring, follow EGD without abnormality 10/2023)
Social History
Tobacco: Non-Smoker
Alcohol: None
Personal:
Living: With Family
Family History
Family History: Reviewed & Not Pertinent
Allergies / Home Medications
Allergy/AdvReac Type Severity Reaction Status Date / Time
promethazine [From Phenergan] Allergy hallucinati Verified 06/24/24 13:56
ons
�Medication �Instructions �Recorded �Confirmed �Type
warfarin 5 mg tablet (Jantoven) 5 mg PO SUTUTHSA@1700 Blood clot 03/27/22 06/24/24 History
prevention/tx
warfarin 2.5 mg tablet (Jantoven) 2.5 mg PO MOWEFR@1700 Blood clot 03/28/22 06/24/24 History
prevention/tx
losartan 100 mg tablet 100 mg PO DAILY Blood Pressure 05/31/23 06/24/24 History
atorvastatin 10 mg tablet 10 mg PO HS High Cholesterol 02/24/24 06/24/24 History
carboxymethylcellulose 0.5 1 drp BOTH EYES BIDPRN PRN dryness 06/24/24 06/24/24 History
%-glycerin 0.9 % eye drops
(Refresh Optive)
pantoprazole 40 mg tablet,delayed 40 mg PO DAILYPRN PRN gerd 06/24/24 06/24/24 History
release
polyethylene glycol 3350 17 gram 17 g PO DAILY Constipation 06/24/24 06/24/24 History
oral powder packet (Miralax)
Review of Systems
-
History Source: Patient
All other systems: Negative unless noted
A 10 point review of systems was completed, and was negative except as per HPI.
Physical Exam
Vital Signs
Temp Pulse Resp BP Pulse Ox
98.6 F 75 18 162/90 96
06/25/24 07:14 06/25/24 07:40 06/25/24 07:40 06/25/24 07:40 06/25/24 07:14
06/24/24 06/25/24 06/26/24
06:59 06:59 06:59
Actual Weight 65.913 kg
Body Mass Index (BMI) 22.1
Lab Results
06/25/24 08:20
06/25/24 08:20
WBC 7.6 10^3/uL (4.8-10.8) 06/25/24 08:20
Hgb 15.2 g/dL (13.0-18.0) 06/25/24 08:20
Hct 43.5 % (39.0-52.0) 06/25/24 08:20
Plt Count 116 10^3/uL (130-400) L 06/25/24 08:20
Abs Immat Gran (auto) 0.0 10^3/uL (0-0.05) 06/25/24 08:20
Neutrophils % 72.5 % (42.2-75.2) 06/25/24 08:20
Physical Exam
General: Well Developed and Well Nourished
HEENT: Moist Mucous Membranes
Respiratory: Non Labored Respirations
GI: Soft, Non Tender, Distended (mild) and Other (NGT with thick brown blood tinged outputs)
Genito-urinary: Inguinal Hernia (left (soft/reducible))
Skin: Warm and Dry
Neuro: Awake, Alert and AO x 3
Psych: Calm
Assessment / Plan
-
This is an 89 yo male with h/o gastroparesis, esophageal stricture with last dilation 05/2023, CAD with NE and CABG 2012 (recent stress testing without abnormality), PE in 2019 on warfarin, prior SBO's with SBO requiring surgery 03/2021 with ex
lap/sbr, left hernia repair 2020 and recently admitted in February for SBO which resolved without surgery, presenting with nausea and vomiting with abdominal pain which developed yesterday afternoon. An NGT was placed in the ED with improvement in pain
and nausea. AFVSS. No leukocytosis. INR therapeutic.
CT imaging reviewed and consistent with what is likely an adhesive SBO. Small left inguinal hernia palpable but not the source of his current bowel obstruction on imaging.
--C/W NPO status and NGT for decompression
--IVF while NPO
--May need PO contrast study if no improvement
--Hold warfarin
--No urgent surgery planned today although surgery may be required this admission if no improvement with medical mesures.
[2024-06-25 15:13] VITALS: BP 187/99
[2024-06-25 15:50] VITALS: BP 168/98
[2024-06-25] MEDS: APRESOLINE 10 MG IV ×2 (15:53→21:31)
[2024-06-25] MEDS: REFRESH EYE DROPS (PF) 1 DROPS BOTH EYES (16:07)
--- NOTE | 2024-06-25 18:26 | PTCARENOTE ---
At time of this note, patient ambulated to bathroom and successfully had small, brown, formed bowel movement and reports passing flatus.
[2024-06-25] MEDS: NSS (PRESERVATIVE FREE) IV (21:26)
[2024-06-25] MEDS: PROTONIX IV IV (21:27)
[2024-06-25 23:00] VITALS: BP 162/89
[2024-06-26] VITALS (7 sets, daily range): BP systolic 142–177; BP diastolic 77–114; PULSE 84; O2SAT 96
[2024-06-26] MEDS: NSS 1000 IV (04:45)
[2024-06-26] MEDS: NSS (PRESERVATIVE FREE) 10 ML IV (09:21)
[2024-06-26] MEDS: PROTONIX IV 40 MG IV ×2 (09:21→21:00)
--- NOTE | 2024-06-26 09:34 | W.PN.GS2 ---
Addendum entered and electronically signed by Jatin Adler MD 06/26/24 10:09:
I saw and examined the patient independently.
The resident's note was reviewed and I agree with the note, assessment and plan except where noted below.
Comment: 89-year-old male with a history of gastroparesis, esophageal stricture status post dilation, multiple prior SBOs his most recent surgery was 03/2021 with an exploratory laparotomy/SBR (Dr. Concepcion), then a lap left IHR TEP (Dr. Noble)
05/2021 who now presents with nausea vomiting and found to have recurrent SBO on CT imaging.
Clinically he is mildly distended, he reports passing flatus and bowel movements. He endorses no nausea and his NG tube output has decreased though is still bilious.
Will plan for a small bowel follow-through today. If his obstruction is resolved we will remove his NG tube.
He is insistent that he wants surgery to 'fix this once and for all'. He understands however that surgery, which would likely have to be open will will result in further scar tissue and carries no guarantee that he will not have a repeat small
bowel obstruction.
Continue holding warfarin. Trend INR. Patient does not want therapeutic Lovenox until his INR is subtherapeutic which I think is reasonable.
Zofran, PPI.
General surgery will continue to follow
Original Note:
Today's Communication / Plan
-
Upper GI follow-through study today
Assessment / Plan
-
89 yo male with h/o gastroparesis, esophageal stricture with last dilation 05/2023, history of multiple prior SBO's with SBO requiring surgery 03/2021 with ex lap/sbr, left hernia repair 2020, presented with nausea and vomiting-CT imaging consistent
with likely adhesive SBO.
-C/W n.p.o. and NGT for decompression until further evaluation with upper GI follow-through.
-IV fluids while n.p.o.
-IV Zofran as needed for nausea
-No emergent surgery recommended at this time.
-Warfarin on hold
-DVT prophylaxis: Lovenox
-GI prophylaxis: IV Protonix
Patient very upset because of frequent episodes and very adamant to have a surgical procedure to ' fix the problem'.
Time Spent
Total Time Spent with Patient (in minutes): 15
Subjective Data
-
Date of Service: June 26, 2024
Interval data: Agitated due to discomfort from NG tube. Passing flatus and stools. Denies nausea vomiting
Objective Data
-
Intake and Output
06/25/24 06/26/24 06/27/24
06:59 06:59 06:59
Intake Total 1000 / 1000 2069 / 2069
Output Total 350 / 350 1650 / 1650
Balance 650 / 650 420 / 420
Intake:
Oral fluids 0 / 0
IV fluids (Total) 1000 / 1000 1920 / 1920
Amount instilled into GI Tube ( 150 / 150
Total)
[place] Sump 150 / 150
Output:
Gastrointestinal tube output ( 700 / 700
Total)
[place] Sump 700 / 700
Urine, Voided 350 / 350 950 / 950
Other:
Number of approximated MODERATE 1
amounts of urine
How many times incontinent 1
MODERATE amount urine
Number of unmeasured liquid
stools
Rectum 1
Vital Signs
Temp Pulse Resp BP Pulse Ox
98.2 F 80 17 177/95 97
06/26/24 07:10 06/26/24 07:10 06/26/24 07:10 06/26/24 07:10 06/26/24 07:10
Calcium 9.1 mg/dl (8.4-10.2) 06/25/24 08:20
Total Bilirubin 1.5 mg/dl (0.2-1.3) H 06/25/24 08:20
AST 29 U/L (17-59) 06/25/24 08:20
ALT 16 U/L (0-50) 06/25/24 08:20
Alkaline Phosphatase 62 U/L (38-126) 06/25/24 08:20
Total Protein 6.1 g/dl (6.3-8.2) L 06/25/24 08:20
Albumin 4.0 g/dl (3.5-5.0) 06/25/24 08:20
Physical Exam
-
General: No apparent distress, NG in place
Abdomen: Soft, nontender, minimal distention.
Psych: Agitated
--- NOTE | 2024-06-26 10:23 | CM ---
Reviewed the chart notes and spoke with the patient and his spouse at the bedside. Patient currently has NGT in place. The patient resides with his spouse in a split level home with no steps to enter. The patient has a rolling walker in home
which he does not use. The patient reports no VN or SNF in the past. The patient confirmed his pharmacy of choice is [facility]. CM continues to be available to patient/family and is monitoring medical plan for needs at discharge.
Plan: Discharge plans will depend on the patient's progress.
[2024-06-26] MEDS: LOVENOX SC (10:25)
[2024-06-26 11:05] LABS: PT 23.4 Sec (11.4-14.6)
[2024-06-26 11:17] LABS: Hematocrit 42.6 % (39.0-52.0); Hemoglobin 15.2 g/dL (13.0-18.0); Mean Corp Hgb Conc. 35.7 g/dL (33.0-37.0); Mean Corpuscular Hgb 33.4 pg (27.0-31.0); Mean Corpuscular Volume 93.6 fL (80.0-94.0); Mean Platelet Volume 10.7 fL (7.4-10.4); Platelet Count 113 10^3/uL (130-400); Red Blood Cell Count 4.55 10^6/uL (4.70-6.10); Red Cell Dist. Width 12.7 % (11.5-14.5); White Blood Cell Count 5.5 10^3/uL (4.8-10.8)
--- NOTE | 2024-06-26 11:17 | PTOTSP ---
pt currently demonstrates ability to complete simple ADLs, functional transfers, ambulation with supervision to no assistance. pt demonstrates no acute OT needs at this time, will sign off.
[2024-06-26 11:37] LABS: ALT (SGPT) 16 U/L (0-50); AST (SGOT) 28 U/L (17-59); Albumin 4.1 g/dl (3.5-5.0); Alkaline Phosphatase 65 U/L (38-126); Blood Urea Nitrogen 12 mg/dl (9-20); Calcium 9.2 mg/dl (8.4-10.2); Carbon Dioxide 19 mmol/L (22-30); Chloride 103 mmol/L (98-107); Direct Bilirubin 0.2 mg/dl (0.0-0.4); Estimated Creatinine Clearance 61 ml/min; Glucose 87 mg/dl (70-99); LDH 188 U/L (120-246); Potassium 3.8 mmol/L (3.5-5.1); Sodium 134 mmol/L (135-145); Total Bilirubin 2.1 mg/dl (0.2-1.3); Total Protein 6.1 g/dl (6.3-8.2); eGFR > 60.00
--- NOTE | 2024-06-26 13:37 | W.PN.HOSP.TC ---
Today's Communication/Plan
-
mgmt as per GenSx - repeat obstruction series
Assessment / Plan
Assessment / Plan
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
A/P:
#SBO, recurrent
NG tube to low intermittent suction
NPO and advance diet as tolerated
mgmt as per general Sx
#Hx of VTE
in 2019
Hold warfaring for Sx, patient declined therapeutic lovenox
Daily INR
Plan heparin drip when INR<2.0
#CAD s/p CABG
cont home meds when able
rectal ASA
#Essential HTN
use IV meds PRN
#Mild chronic thrombocytopenia
follow CBC
#Hx of hemilaminectomy L1-L2
#DJD
tylenol
PT/OT
#Indirect bilirubinemia
LDH WNL, suspect Gilbert
follow LFT
#Hx of gastroparesis
#GERD
#Esophageal stricture
#Hiartal hernia
cont ouptatient follow up uupon d/c
DVT ppx on SCDs
Full code
I have spent at least 37min reviewing chart, test results, communicating with consultants and direct patient care
Anticipated Discharge: > 48 hours
Subjective/Interval History
-
Date of Service: June 26, 2024
Objective Data
-
Labs:
Laboratory Results
06/26/24 06/26/24
10:23 10:24
WBC 5.5
Hgb 15.2
Hct 42.6
Plt Count 113 L
PT 23.4 H
INR 2.10
Sodium 134 L
Potassium 3.8
Chloride 103
Carbon Dioxide 19 L
BUN 12
Creatinine 0.8
Glucose 87
Calcium 9.2
Total Bilirubin 2.1 H
AST 28
ALT 16
Alkaline Phosphatase 65
Vital Signs:
Vital Signs
Temp Pulse Resp BP Pulse Ox
98.2 F 80 17 160/98 97
06/26/24 07:10 06/26/24 07:10 06/26/24 07:10 06/26/24 08:00 06/26/24 07:10
I&O
06/25/24 06/26/24 06/27/24
06:59 06:59 06:59
Intake Total 1000 / 1000 2069
Output Total 350 / 350 0 / 1650
Balance 650 / 650 420 / 420
Review of Systems
-
History Source: Patient
All other systems: Reviewed and negative
Physical Exam
-
General: No Apparent Distress
HEENT: Normocephalic and Atraumatic
Respiratory: Clear to Auscultation; Negative Wheezes, Rales or Rhonchi
Cardiac: Regular Rhythm
GI: Soft, Nontender and Distended
Musculoskeletal: No Clubbing, No Cyanosis and No Edema
Skin: Warm
Neuro: Awake, Alert, Oriented and AO x 3
Psych: Calm
--- NOTE | 2024-06-26 15:27 | PTCARENOTE ---
NGT order completed; per [employer] Harden [employer] DES[employer] I removed NGT; patient tolerated without incident; patient now on clear liquid diet.
[2024-06-26] MEDS: SEROQUEL 25 MG PO (20:32)
[2024-06-26] MEDS: NSS (PRESERVATIVE FREE) IV (20:51)
[2024-06-26] MEDS: PROTONIX IV IV (20:51)
[2024-06-27] MEDS: NSS (PRESERVATIVE FREE) 10 ML IV ×2 (04:53→08:09)
[2024-06-27 05:36] VITALS: BMI 21.3
[2024-06-27 06:47] LABS: INR 2.37; PT 25.8 Sec (11.4-14.6)
[2024-06-27 07:03] VITALS: BP 157/80
[2024-06-27 07:07] LABS: ALT (SGPT) 18 U/L (0-50); AST (SGOT) 30 U/L (17-59); Albumin 3.9 g/dl (3.5-5.0); Alkaline Phosphatase 59 U/L (38-126); Blood Urea Nitrogen 12 mg/dl (9-20); Calcium 9.7 mg/dl (8.4-10.2); Carbon Dioxide 24 mmol/L (22-30); Chloride 108 mmol/L (98-107); Estimated Creatinine Clearance 47 ml/min; Glucose 107 mg/dl (70-99); Potassium 3.6 mmol/L (3.5-5.1); Sodium 139 mmol/L (135-145); Total Bilirubin 2.1 mg/dl (0.2-1.3); eGFR > 60.00
[2024-06-27 07:09] LABS: % Eosinophils 3.5 % (0-6); % Immature Granulocytes 0.4 % (0-0.5); % Lymphocytes 33.5 % (20.5-51.1); % Monocytes 15.3 % (1.7-9.3); % Neutrophils 46.3 % (42.2-75.2); Absolute Basophils 0.1 10^3/uL (0-0.2); Absolute Eosinophils 0.2 10^3/uL (0-0.7); Absolute Lymphocytes 1.7 10^3/uL (1.2-3.4); Absolute Monocytes 0.8 10^3/uL (0.1-0.6); Absolute Neutrophils 2.4 10^3/uL (1.4-6.5); Hemoglobin 15.5 g/dL (13.0-18.0); Mean Corp Hgb Conc. 35.2 g/dL (33.0-37.0); Mean Corpuscular Hgb 33.5 pg (27.0-31.0); Mean Platelet Volume 10.9 fL (7.4-10.4); Nucleated Red Blood Cells % 0 % (-); Platelet Count 109 10^3/uL (130-400); Red Blood Cell Count 4.63 10^6/uL (4.70-6.10); Red Cell Dist. Width 12.6 % (11.5-14.5); White Blood Cell Count 5.2 10^3/uL (4.8-10.8)
--- NOTE | 2024-06-27 07:09 | W.PN.GS2 ---
Addendum entered and electronically signed by Gurinder Hawk MD 06/27/24 08:17:
Patient seen and examined.
No major complaints. Denies nausea or vomiting. Passing flatus and multiple loose nonbloody stools. Afebrile.
Gen: NAD
Abd: soft, NT/ND, non-peritoneal, incisions well healed
Patient is an 89 yo M p/w SBO likely secondary to adhesions
SBFT without significant SB dilation, transit through to the colon, normal transit time
AVSS
Clinical improvement. Role of surgical intervention for small bowel obstructions was reviewed. Lengthy discussion has been previously documented. Recommend continued medical management.
-- LRD, dietary education provided
-- DC today if tolerating diet
Original Note:
Today's Communication / Plan
-
Advancement of diet to low residue
Cleared to be discharged from surgical standpoint
Follow-up at outpatient
Assessment / Plan
-
89-year-old male with a history of gastroparesis, esophageal stricture status post dilation, multiple prior SBOs his most recent surgery was 03/2021 with an exploratory laparotomy/SBR (Dr. Concepcion), then a lap left IHR TEP (Dr. Noble) 05/2021 who now
presents with nausea vomiting and found to have recurrent SBO on CT imaging.
- upper GI follow through: no SBO
- Tolerated Clear liquid diet: advance to low residue
- No emergent surgery recommended at this time.
- Warfarin on hold
-Cleared to be discharged from surgical standpoint
-Patient declined therapeutic lovenox- Trend INR
-GI prophylaxis: IV Protonix
Patient is insistent that he wants surgery to 'fix this once and for all'. He understands however that surgery, which would likely have to be open will result in further scar tissue and carries no guarantee that he will not have a repeat small
bowel obstruction.
Time Spent
Total Time Spent with Patient (in minutes): 15
Subjective Data
-
Date of Service: June 27, 2024
Interval data: Patienrt feeling much better. Passing flatus and stools. Denies nausea and vomiting.
Objective Data
-
Intake and Output
06/26/24 06/27/24 06/28/24
06:59 06:59 06:59
Intake Total 2069 / 2069 720 / 720
Output Total 0 / 0
Balance 420 / 420 720 / 720
Intake:
Oral fluids 0 / 0
IV fluids (Total) 1920 / 1920 720 / 720
Amount instilled into GI Tube ( 150 / 150
Total)
[place] Sump 150 / 150
Output:
Gastrointestinal tube output ( 700 / 700
Total)
[place] Sump 700 / 700
Urine, Voided 950 / 950
Other:
Number of approximated MODERATE 1 3
amounts of urine
Number of unmeasured liquid
stools
Rectum 1
Vital Signs
Temp Pulse Resp BP Pulse Ox
98.3 F 92 20 142/77 97
06/26/24 22:30 06/26/24 22:30 06/26/24 22:30 06/26/24 22:30 06/26/24 22:30
Lab Results
06/27/24 06:13
Calcium 9.7 mg/dl (8.4-10.2) 06/27/24 06:13
Total Bilirubin 2.1 mg/dl (0.2-1.3) H 06/27/24 06:13
Direct Bilirubin Cancelled 06/26/24 10:24
AST 30 U/L (17-59) 06/27/24 06:13
ALT 18 U/L (0-50) 06/27/24 06:13
Alkaline Phosphatase 59 U/L (38-126) 06/27/24 06:13
Total Protein 6.0 g/dl (6.3-8.2) L 06/27/24 06:13
Albumin 3.9 g/dl (3.5-5.0) 06/27/24 06:13
Physical Exam
-
General: No apparent distress.
Abdomen: Soft, nontender, no distention.
[2024-06-27] MEDS: PROTONIX IV 40 MG IV (08:09)
--- NOTE | 2024-06-27 08:12 | PTCARENOTE ---
Dr. Baeza made aware that patient refused ASA this AM. Patient education provided. No new orders at this time. Care ongoing.
--- NOTE | 2024-06-27 10:41 | W.PN.HOSP.TC ---
Today's Communication/Plan
-
dc
Assessment / Plan
Assessment / Plan
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 GenSx planning fr outpatient follow up for elective laparoscopy.
Patient declined bridging lovenox in hospital. Tolerated solid food well and medically stable for the d/c
A/P:
#SBO, recurrent
NG tube to low intermittent suction - removed on 06/26/24 since repeated imaging showed resolution of SBO
NPO and advance diet as tolerated
mgmt as per general Sx
#Hx of VTE
in 2019
Hold warfaring for Sx, patient declined therapeutic lovenox
Daily INR
Plan heparin drip when INR<2.0
#CAD s/p CABG
cont home meds when able
rectal ASA
#Essential HTN
use IV meds PRN
#Mild chronic thrombocytopenia
follow CBC
#Hx of hemilaminectomy L1-L2
#DJD
tylenol
PT/OT
#Indirect bilirubinemia
LDH WNL, suspect Gilbert
follow LFT
#Hx of gastroparesis
#GERD
#Esophageal stricture
#Hiatal hernia
cont ouptatient follow up uupon d/c
DVT ppx on SCDs
Full code
I have spent at least 37min reviewing chart, test results, communicating with consultants and direct patient care
Anticipated Discharge: Today
Subjective/Interval History
-
Date of Service: June 27, 2024
Objective Data
-
Labs:
Laboratory Results
06/27/24
06:13
WBC 5.2
Hgb 15.5
Hct 44.0
Plt Count 109 L
PT 25.8 H
INR 2.37
Sodium 139
Potassium 3.6
Chloride 108 H
Carbon Dioxide 24
BUN 12
Creatinine 1.0
Glucose 107 H
Calcium 9.7
Total Bilirubin 2.1 H
AST 30
ALT 18
Alkaline Phosphatase 59
Vital Signs:
Vital Signs
Temp Pulse Resp BP Pulse Ox
98.2 F 67 16 157/80 96
06/27/24 07:03 06/27/24 07:03 06/27/24 07:03 06/27/24 07:03 06/27/24 07:03
I&O
06/26/24 06/27/24 06/28/24
06:59 06:59 06:59
Intake Total 0 / 0 720 / 720
Output Total 1650 / 1650
Balance 420 / 420 720 / 720
Review of Systems
-
History Source: Patient
All other systems: Reviewed and negative
Physical Exam
-
General: Well Developed
HEENT: Normocephalic
Respiratory: Clear to Auscultation
Cardiac: Regular Rhythm
GI: Soft, Nontender, Nondistended and Normal Bowel Sounds
Musculoskeletal: No Clubbing, No Cyanosis and No Edema
Skin: Warm
Neuro: Awake, Alert, Oriented and AO x 3
Psych: Calm
--- NOTE | 2024-06-27 10:46 | W.DCSUMMARY ---
Discharge Summary
Discharge Data
Date of Admission: 06/24/24
Date of Discharge: 06/27/24
-
Pending Results: No
Hospital Course
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 GenSx planning fr outpatient follow up for elective laparoscopy.
Patient declined bridging lovenox in hospital. Tolerated solid food well and medically stable for the d/c.
I have espent at least 38min peparing d/c
Patient was managed for:
#SBO, recurrent
#Hx of VTE
#CAD s/p CABG
#Essential HTN
#Mild chronic thrombocytopenia
#Hx of hemilaminectomy L1-L2
#DJD
#Indirect bilirubinemia, gilbert
#Hx of gastroparesis
#GERD
#Esophageal stricture
#Hiatal hernia
Discharge Plan
-
Patient Disposition: Home (Routine Discharge)
Discharge Diagnosis/Procedures: SBO
Diet: Low Residue
Activity: As tolerated
Driving Restrictions: As prior to admission
Referrals:
Paul Desir MD [Family Provider] -
Jatin Adler MD [Active] - in two to four weeks
Prescriptions:
Continued
warfarin [Jantoven] 5 MG tablet
5 mg PO SUTUTHSA@1700
warfarin [Jantoven] 2.5 MG tablet
2.5 mg PO MOWEFR@1700
losartan 100 MG tablet
100 mg PO DAILY
atorvastatin 10 mg Tablet
10 mg PO HS
Refresh Optive 0.5-0.9 % Drops
1 drp BOTH EYES BIDPRN PRN (Reason: dryness)
pantoprazole 40 MG tablet,delayed release (DR/EC)
40 mg PO DAILYPRN PRN (Reason: gerd)
polyethylene glycol 3350 [Miralax] 17 gram Powder In Packet
17 g PO DAILY
Discharge Orders:
Discharge Patient (As Directed); Ordered 06/27/24
Ordered By: Yaw Baeza
Discharge Date and Time
Print Language: SLOVENIAN
[2024-06-27 11:11] VITALS: BP 130/68
[2024-06-27 11:30] VITALS: BMI 21.3
== END 2024-06-27 11:30 | disposition home or self-care (01) | DRG 390 ==
LOC: 2 SOUTH 19:35
PROVIDERS: Clinical Nurse Specialist Family Health; Nurse Practitioner Gerontology; ADMITTING PHYSICIAN Family Medicine; ATTENDING PHYSICIAN Internal Medicine; CONSULT PHYSICIAN Surgery; EMERGENCY PHYSICIAN Emergency Medicine; FAMILY PHYSICIAN Family Medicine
DX: K56.51 Intestinal adhesions [bands], with partial obstruction (principal); I10 Essential (primary) hypertension; D69.6 Thrombocytopenia, unspecified; I25.10 Atherosclerotic heart disease of native coronary artery without angina pectoris; K21.9 Gastro-esophageal reflux disease without esophagitis; I16.0 Hypertensive urgency; E80.4 Gilbert syndrome; Z95.1 Presence of aortocoronary bypass graft; Z86.718 Personal history of other venous thrombosis and embolism
CPT/HCPCS: 43752; 74018; 74177; 74250; 80048; 80053; 81003; 82248; 83615; 83690; 85025; 85027; 85610; 96361; 96374; 96375; 96376; 97162; 97165; 99285; Q9967

== ENCOUNTER 2024-08-04 11:36 | Emergency (ER) | payer OTHER, SELFPAY ==
[2024-08-04 11:38] VITALS: BP 187/87
[2024-08-04 12:19] VITALS: BP 152/79
[2024-08-04 12:35] LABS: % Eosinophils 2.6 % (0-6); % Immature Granulocytes 0.3 % (0-0.5); % Lymphocytes 23.4 % (20.5-51.1); % Monocytes 16.9 % (1.7-9.3); % Neutrophils 55.8 % (42.2-75.2); Absolute Eosinophils 0.1 10^3/uL (0-0.7); Absolute Lymphocytes 0.9 10^3/uL (1.2-3.4); Absolute Monocytes 0.7 10^3/uL (0.1-0.6); Absolute Neutrophils 2.1 10^3/uL (1.4-6.5); Hematocrit 43.3 % (39.0-52.0); Hemoglobin 15.6 g/dL (13.0-18.0); Mean Corpuscular Hgb 33.1 pg (27.0-31.0); Mean Corpuscular Volume 91.9 fL (80.0-94.0); Mean Platelet Volume 11.1 fL (7.4-10.4); Nucleated Red Blood Cells % 0 % (-); Platelet Count 156 10^3/uL (130-400); Red Blood Cell Count 4.71 10^6/uL (4.70-6.10); Red Cell Dist. Width 12.9 % (11.5-14.5); White Blood Cell Count 3.8 10^3/uL (4.8-10.8)
[2024-08-04 12:43] LABS: INR 2.11; PT 23.5 Sec (11.4-14.6)
[2024-08-04 13:00] VITALS: BP 157/83
[2024-08-04 13:13] LABS: ALT (SGPT) 20 U/L (0-50); AST (SGOT) 28 U/L (17-59); Albumin 3.9 g/dl (3.5-5.0); Alkaline Phosphatase 66 U/L (38-126); Blood Urea Nitrogen 21 mg/dl (9-20); Calcium 9.4 mg/dl (8.4-10.2); Carbon Dioxide 22 mmol/L (22-30); Chloride 108 mmol/L (98-107); Glucose 119 mg/dl (70-99); Potassium 3.9 mmol/L (3.5-5.1); Sodium 140 mmol/L (135-145); Total Bilirubin 1.1 mg/dl (0.2-1.3); Total Protein 6.1 g/dl (6.3-8.2); eGFR > 60.00
[2024-08-04 13:21] LABS: Troponin I 0.013 ng/ml
--- NOTE | 2024-08-04 13:30 | ED.GENMED ---
History of Present Illness
General
Chief Complaint: Chest Pain
Source: patient
Exam Limitations: none
Time Seen by Provider: 08/04/24 12:35
Nursing documentation reviewed up to this point in time: agreed with
History of Present Illness
History of Present Illness:
Patient is a 89-year-old male with past medical history of PE CAD hypertension hyperlipidemia SC, CABG presents to the ER for evaluation. Patient reports since yesterday afternoon he has had intermittent episodes of discomfort in his chest. He
describes this as burning twinges which come on very quickly and go away quickly. He does have reflux and is on pantoprazole and at times feels the burning is associate with reflux. He denies any associated shortness of breath radiation nausea
vomiting. He reports ever since having a heart attack years ago when he has any type of discomfort in his chest this concerns him. He is on Coumadin normally but stopped it last night because he is supposed to have exploratory intestinal surgery
by Dr. Noble on wednesday. He is due for an INR on Wednesday. He is presently asymptomatic.
He reports he saw his compounding assistant in the office last week for clearance for this upcoming surgery. He reports his compounding assistant is aware of these pains.
Past History
Past History
ED Past Medical History: CAD, GERD, HTN, Hypercholesterolemia and Other (hiatal hernia, PE)
ED Past Surgical History: Cardiac (CABG 2012), Orthopedic (Lumbar fusion), Urological (Prostatectomy) and Other (Mouth growth removed, esophageal procedure to fix a tear)
Patient has exhibited threatening behavior?: No
PSI?: No
Social History
Tobacco: Non-smoker
Alcohol: None
Drug: None
Personal:
Living: with family
Employment: Retired
Family History
Family History: Hypertension
Review of Systems
Review of Systems
Allergies reviewed?: Yes
Other source history: family
All Other Systems: ROS reviewed and negative except as documented in HPI and ROS
Constitutional: Reports no symptoms
Respiratory: Reports no symptoms; Denies trouble breathing
Cardiac: Reports chest pain
ABD/GI: Reports no symptoms
Musculoskeletal: Reports no symptoms and other
Skin: Reports no symptoms
Neurological: Reports no symptoms
Psychiatric: Reports no symptoms
Phy Exam
General Physical Exam
General Presentation: no apparent distress
General age: appears stated age
General Skin: warm and dry
General Habitus: elderly
General Mental: alert
General Hydration: appears well hydrated
Cardiovascular Exam
Cardiovascular Exam: regular rate/rhythm, no murmur and normal peripheral pulses
Pulmonary Exam
Pulmonary Exam: lungs clear and no respiratory distress
Neurological Exam
Neurological Exam: alert and oriented x3
Musculoskeletal Exam
Musculoskeletal Exam: full ROM
Skin Exam
Skin Exam: normal color and warm/dry
Psychiatric Exam
Psychiatric Exam: normal mood/affect
Scores
Heart Score for Chest Pain Patients
STEMI patient?: Not applicable
Course
Orders/Labs/Results
Orders:
Orders
08/04/24 11:36
EKG [Electrocardiogram (*1)] Urgent
Reason for Study: Chest Pain
08/04/24 11:37
EKG- Treatment ONCE
08/04/24 12:19
Complete Blood Count/With Diff Urgent
INR [Prothrombin Time] Urgent
08/04/24 12:49
Comprehensive Metabolic Panel Urgent
Troponin I Urgent
08/04/24 13:44
Chest [CR Chest - 2 Views ] Urgent
Comment:
Reason For Exam: cp
Abnormal Lab Results
08/04/24 08/04/24
12:19 12:49
WBC 3.8 L 10^3/uL
(4.8-10.8)
MCH 33.1 H pg
(27.0-31.0)
MPV 11.1 H fL
(7.4-10.4)
Absolute Lymphs (auto) 0.9 L 10^3/uL
(1.2-3.4)
Absolute Monos (auto) 0.7 H 10^3/uL
(0.1-0.6)
Monocytes % 16.9 H %
(1.7-9.3)
PT 23.5 H Sec
(11.4-14.6)
Chloride 108 H mmol/L
(98-107)
BUN 21 H mg/dl
(9-20)
Glucose 119 H mg/dl
(70-99)
Total Protein 6.1 L g/dl
(6.3-8.2)
08/04/24 12:19
08/04/24 12:49
Vital Signs
Initial and Last Documented VS:
Initial Vital Signs
Temp Pulse Resp BP Pulse Ox
97.3 F 77 18 187/87 99
08/04/24 11:38 08/04/24 11:38 08/04/24 11:38 08/04/24 11:38 08/04/24 11:38
Last Documented Vital Signs
Temp Pulse Resp BP Pulse Ox
97.3 F 61 20 163/74 96
08/04/24 11:38 08/04/24 14:00 08/04/24 14:00 08/04/24 14:00 08/04/24 14:00
Chargeback Specialist consulted with Physician
Chargeback Specialist consulted with physician?: Yes
Name of Physician Consulted: mariana
MDM/Problems Addressed
MDM/Problems Addressed:
Patient is an 89-year-old male with past medical history of CAD status CABG followed by send was cardiology presented with intermittent episodes since yesterday of what he describes 'burning twinges' in his chest. He denies any associated shortness
of breath with this. On exam he is in no acute distress and asymptomatic. He does admit to getting anxious about any type of pain in his chest ever since he had an SC. He is scheduled for exploratory bowel surgery by Dr. Noble here on Wednesday
and was instructed to stop his Coumadin last night. He did stop last night his INR is 2.11. He has no acute findings on EKG. he did see cardiology last week for clearance for his upcoming surgery.
His cardiac troponin is unchanged. I did review Lexiscan stress test from January 2024 (no nuclear perfusion evidence of myocardial ischemia).
Patient has been asymptomatic here in the ER no acute distress, chest x-ray negative will plan to discharge home with outpatient cardiology follow-up
Chronic conditions affecting care:
previous SC CABG upcoming explor surg
*Critical Care Note
Total Time (30-74mins, 75-104mins- exclusive of procedures): Not Applicable
ED Attending Note
-
Portions of this chart may have been created with voice recognition software.� Occasional wrong word or��sound alike� substitutions may have occurred due to the inherent limitations of voice recognition software.
Discharge Plan
Departure
Patient Disposition: Home (Routine Discharge)
Date of Disposition: 08/04/24
Time of Disposition: 15:47
Patient with high blood pressure during this ER visit?: Yes
Condition: Fair
Covid-19: Not Applicable
Discharge Problem:
Chest pain
Instructions: Chest Pain CBC Follow Up
Prescriptions:
No Action
warfarin [Jantoven] 5 MG tablet
5 mg PO SUTUTHSA@1700
warfarin [Jantoven] 2.5 MG tablet
2.5 mg PO MOWEFR@1700
atorvastatin 10 mg Tablet
10 mg PO HS
Refresh Optive 0.5-0.9 % Drops
1 drp BOTH EYES BIDPRN PRN (Reason: dryness)
pantoprazole 40 MG tablet,delayed release (DR/EC)
40 mg PO DAILYPRN PRN (Reason: gerd)
polyethylene glycol 3350 [Miralax] 17 gram Powder In Packet
17 g PO DAILY
Referrals:
Paul Desir MD [Family Provider] -
Nasir Small MD [Active] -
Activity Restrictions/Additional Instructions:
As discussed follow-up with your compounding assistant. Return if any worsening of symptoms.
Interventions
Interventions:
*Risk Screen - Suicide Last Done: 08/04/24 11:38
*General Assessment Last Done: 08/04/24 11:38
*Neglect/Abuse Screening Last Done: 08/04/24 11:38
ED- Cardiac Assessment Last Done: 08/04/24 12:23
Discharge Date and Time
Print Language: ALGERIAN
[2024-08-04 14:00] VITALS: BP 163/74
[2024-08-04 15:00] VITALS: BP 171/76
== END 2024-08-04 16:05 | disposition home or self-care (01) ==
LOC: EMR 11:36
PROVIDERS: Emergency Medicine; EMERGENCY PHYSICIAN Emergency Medicine; FAMILY PHYSICIAN Family Medicine
DX: R07.89 Other chest pain (principal); I10 Essential (primary) hypertension; I25.10 Atherosclerotic heart disease of native coronary artery without angina pectoris; E78.00 Pure hypercholesterolemia, unspecified; I25.2 Old myocardial infarction; K21.9 Gastro-esophageal reflux disease without esophagitis; Z95.1 Presence of aortocoronary bypass graft; Z82.49 Family history of ischemic heart disease and other diseases of the circulatory system
CPT/HCPCS: 99283; 71046; 80053; 84484; 85025; 85610; 93005

== ENCOUNTER 2024-08-08 11:32 | Inpatient (IN) | payer OTHER, SELFPAY ==
--- NOTE | 2024-08-07 10:19 | PTCARENOTE ---
Ana in Dr. Noble's office made aware of pt's visit to the ER 08/04 for chest pain. Made aware of the INR 2.11 and EKG report also.
--- NOTE | 2024-08-07 13:03 | PTCARENOTE ---
Abnormal EKG reviewed by Dr. Morales, no further action requested.
--- NOTE | 2024-08-07 14:40 | PTCARENOTE ---
See addendum to cardiac note regarding pt's ER visit 08/04/24 for chest pain.
[2024-08-08] VITALS (21 sets, daily range): BP systolic 140–212; BP diastolic 65–91; BMI 20.4
[2024-08-08] MEDS: TYLENOL 1000 MG PO (11:53)
[2024-08-08] MEDS: NORMOSOL-R/PLASMALYTE-A 1000 IV (12:16)
--- NOTE | 2024-08-08 13:54 | W.SUR.PREOP ---
Pre-Operative Surgical Note
-
I have examined this patient prior to the performance of the scheduled procedure.
The patient's condition is unchanged from the time of the current History and
Physical and the patient is able to undergo the scheduled procedure.
--- NOTE | 2024-08-08 17:01 | W.IMMPOSTOP ---
Addendum entered and electronically signed by Quique Noble MD 08/08/24 17:17:
#[id number]
Original Note:
Surgical Immed Post Op Note
-
Primary Surgeon: Aide
Assisting Surgeon: Indigo Singh PA-c
Pre-op Diagnosis: h/o recurrent SBO
Post-op Diagnosis: h/o recurrent SBO
Procedure Performed: Dx Laparoscopy, lysis of adhesions
Anesthesia Type: GETA + 0.25% Marcaine
Specimen / Cultures: none
Estimated Blood Loss: 2mL
Complications: none immediate
Operative Findings: Omental adhesions to the left lower quadrant and anterior abdominal wall which were freed with harmonic scalpel for lysis of adhesions. Few filmy adhesions of the small bowel adjacent to [id number] anastomosis also lysed
sharply with scissors. No additional adhesions noted and small bowel run in its entirety x 2 from TI to ligament of Treitz. Moderate fecal burden throughout colon particularly cecum. No ventral, spigelian, umbilical, or incisional hernias. Small
right indirect inguinal hernia but not large enough to accommodate bowel.
Plan: Routine postoperative care overnight, advancing diet as tolerated, probable discharge home tomorrow.
Patient's Pat updated via phone call postoperatively.
[2024-08-08] MEDS: APRESOLINE 5 MG IV ×2 (18:43→22:42)
[2024-08-08] MEDS: NSS 1000 IV (20:16)
--- NOTE | 2024-08-08 21:00 | TRANSFER ---
Received report from DIRECTOR OF LAND ACQUISITION Delia. Pt arrived to unit in bed s/p Dx Laparoscopy, lysis of adhesions. 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 No c/o pain at this time. VS WNL, AUTOMATED CUTTING MACHINE OPERATOR made aware of elevated BPs. Pt AAOx3, able to make all needs known. Bed in
lowest position, call nelson within reach. Safety maintained.
[2024-08-08] MEDS: LIPITOR 10 MG PO (22:29)
[2024-08-08] MEDS: TYLENOL 650 MG PO (22:57)
[2024-08-09 03:58] VITALS: BP 164/83
--- NOTE | 2024-08-09 07:13 | W.PN.GS2 ---
Today's Communication / Plan
-
`
Assessment / Plan
-
Assessment: POD#1 s/p dx lap, timothy
AFVSS
doing well post op
Plan: d/c home
operative procedure reviewed with pt
Subjective Data
-
Date of Service: August 09, 2024
pt seen and examined
offers no complaints
some incisional discomfort and mild abd pain
no nausea
Objective Data
-
Intake and Output
08/08/24 08/09/24 08/10/24
06:59 06:59 06:59
Intake Total 1225 / 1225
Output Total 650 / 650
Balance 575 / 575
Intake:
IV fluids (Total) 1225 / 1225
Normosol 450 / 450
Output:
Urine, Torre 650 / 650
Vital Signs
Temp Pulse Resp BP Pulse Ox
98.4 F 83 20 164/83 96
08/09/24 03:58 08/09/24 03:58 08/09/24 03:58 08/09/24 03:58 08/09/24 03:58
Physical Exam
-
NAD AAOx3
ABD: soft, ND, mild TTP
incisions with glue dressings
--- NOTE | 2024-08-09 07:18 | W.DS.TRANS ---
DC Summary - Top Cager
-
Discharge Instructions:
Sleep Apnea Risk Intermediate
Discharge Diagnosis/Procedures Laparoscopic Lysis of Adhesions
Diet As tolerated,Regular,Supplements
Additional Diets smaller meals, avoid large portions
Activity No strenuous activity
Driving Restrictions No driving for 24 hours
Bathing Restrictions OK to Shower
Wound Care glue at surgical sites typically peels off in 2-
3 weeks
Instructions:
Stand-Alone Forms:
Changes to Home Medications: No
Discharge Medications:
DC Medications w/original date entered in [employer]
warfarin 5 mg tablet (Jantoven) 5 mg PO SUTUTHSA@1700 Blood clot prevention/tx 03/27/22
warfarin 2.5 mg tablet (Jantoven) 2.5 mg PO MOWEFR@1700 Blood clot prevention/tx 03/28/22
atorvastatin 10 mg tablet 10 mg PO HS High Cholesterol 02/24/24
carboxymethylcellulose 0.5 %-glycerin 0.9 % eye drops (Refresh Optive) 1 drp BOTH EYES BIDPRN PRN dryness 06/24/24
pantoprazole 40 mg tablet,delayed release 40 mg PO DAILYPRN PRN gerd 06/24/24
polyethylene glycol 3350 17 gram oral powder packet (Miralax) 17 g PO DAILY Constipation 06/24/24
aspirin 81 mg tablet 81 mg PO 1XD 08/08/24
acetaminophen 500 mg tablet (Tylenol Extra Strength) 1,000 mg (2 x 500 mg) PO Q6HPRN PRN mild pain #1 tab 08/09/24
Home Medication Changes
Pending Results: No
[2024-08-09] MEDS: NSS IV (07:34)
[2024-08-09 07:45] VITALS: BP 184/98
[2024-08-09] MEDS: MIRALAX 17 GRAMS PO (07:48)
[2024-08-09] MEDS: APRESOLINE 5 MG IV (08:27)
--- NOTE | 2024-08-09 09:43 | CM ---
Reviewed the chart notes and spoke with the patient at the bedside. The patient resides with his spouse in a split level home with no steps to enter. The patient reports not using any DME, no VN or SNF in the past. The patient confirmed his
pharmacy of choice is the [facility]. The patient is being discharged today to home with no needs. The patient's spouse will be providing transportation. CM continues to be available to patient/family and is monitoring medical plan for
needs at discharge.
Plan: Discharge to home today.
[2024-08-09 10:14] VITALS: BP 139/79
== END 2024-08-09 11:11 | disposition home or self-care (01) | DRG 337 ==
LOC: 2 SOUTH 11:32
PROVIDERS: ADMITTING PHYSICIAN Surgery; FAMILY PHYSICIAN Family Medicine
PROC: 0DNW4ZZ Release Peritoneum, Percutaneous Endoscopic Approach (ICD-10-PCS; 2024-08-08)
DX: K66.0 Peritoneal adhesions (postprocedural) (postinfection) (principal); K31.89 Other diseases of stomach and duodenum; K40.90 Unilateral inguinal hernia, without obstruction or gangrene, not specified as recurrent

== ENCOUNTER 2024-08-13 13:35 | Inpatient (IN) | payer OTHER, SELFPAY ==
[2024-08-13 09:28] VITALS: BP 150/107
--- NOTE | 2024-08-13 10:20 | ED.GENMED ---
History of Present Illness
General
Chief Complaint: Abdominal Pain
Source: patient, records and spouse
Time Seen by Provider: 08/13/24 10:01
History of Present Illness
History of Present Illness:
89-year-old male with past medical history of CAD status post previous OH, hypertension, hyperlipidemia, multiple previous bowel obstructions status post lysis adhesions from 5 days ago presenting back to the emergency department for continued
intermittent discomfort throughout his abdomen, difficulty tolerating p.o. and frequent diarrhea. Patient reports that following his discharge he was told he can resume his diet as normal which he attempted to do but states that every time he would
eat he would have large-volume diarrhea. Patient states that in 5 days he has lost approximately 5 pounds. He notes associated reflux-like symptoms and states that every time he eats he feels the reflux sensation and has increased belching.
Denies any fevers/chills or rigors.
Past History
Past History
ED Past Medical History: CAD, GERD, HTN, Hypercholesterolemia, OH and Other (hiatal hernia, PE)
ED Past Surgical History: Cardiac (CABG 2012), Orthopedic (Lumbar fusion), Urological (Prostatectomy) and Other (Mouth growth removed, esophageal procedure to fix a tear)
Patient has exhibited threatening behavior?: No
PSI?: No
Social History
Tobacco: Non-smoker
Alcohol: None
Drug: None
Personal:
Living: with family
Employment: Retired
Family History
Family History: Hypertension
Review of Systems
Review of Systems
All Other Systems: ROS reviewed and negative except as documented in HPI and ROS
Phy Exam
Physical Exam
Physical Exam:
GENERAL: Alert , in no apparent distress
EYE: clear conjunctiva b/l
HEAD: NCAT
ENT: mildly dry mucous membranes
CARDIAC: Tachycardic rate and rhythm
LUNGS: Clear breath sounds bilaterally, no acute respiratory distress, no wheezes/rales/rhonchi
ABDOMEN: Soft, normoactive bowel sounds, generalized tenderness, no r/g, no cvat
NEUROLOGICAL: Alert and oriented
SKIN: Warm and dry, skin intact.
MUSCULOSKELETAL: well perfused.
PSYCH: Normal and appropriate interaction.
Scores
Heart Failure Risk
Heart Failure Risk Score: Not Applicable
Heart Score for Chest Pain Patients
STEMI patient?: Not applicable
Withdrawal Assessment of Alcohol
Withdrawal Assessment Completed?: Not applicable
Course
Orders/Labs/Results
Orders:
Orders
08/13/24 10:18
0.9% Sodium Chloride 1000 ml [Nss] 1,000 ml IV BOLUS
Famotidine [Pepcid] 20 mg IV NOW STA
CR Obstruct Series W/pa Chest Urgent
Comment:
Reason For Exam: recent surgery, diarrhea, unable to tolerate PO
08/13/24 11:01
Complete Blood Count/With Diff Urgent
Comprehensive Metabolic Panel Urgent
Stool Culture Urgent
ARLEN Source: Feces/Stool
Specimen Description:
Date Specimen was Collected: 08/13/24
Time Specimen was Collected: 10:46
Abnormal Lab Results
08/13/24
11:01
WBC 4.6 L 10^3/uL
(4.8-10.8)
MCH 32.5 H pg
(27.0-31.0)
Plt Count 121 L 10^3/uL
(130-400)
MPV 10.7 H fL
(7.4-10.4)
Absolute Lymphs (auto) 0.9 L 10^3/uL
(1.2-3.4)
Absolute Monos (auto) 0.7 H 10^3/uL
(0.1-0.6)
Lymphocytes % 19.1 L %
(20.5-51.1)
Monocytes % 14.5 H %
(1.7-9.3)
Carbon Dioxide 21 L mmol/L
(22-30)
BUN 22 H mg/dl
(9-20)
Glucose 121 H mg/dl
(70-99)
Total Bilirubin 2.1 H mg/dl
(0.2-1.3)
08/13/24 11:01
08/13/24 11:01
Vital Signs
Initial and Last Documented VS:
Initial Vital Signs
Temp Pulse Resp BP Pulse Ox
97.8 F 113 16 150/107 99
08/13/24 09:28 08/13/24 09:28 08/13/24 09:28 08/13/24 09:28 08/13/24 09:28
Last Documented Vital Signs
Temp Pulse Resp BP Pulse Ox
97.8 F 113 16 150/107 99
08/13/24 09:28 08/13/24 09:28 08/13/24 09:28 08/13/24 09:28 08/13/24 09:28
MDM/Problems Addressed
Differential Diagnosis Includes:
dehydration, ileus, less concern for recurring obstruction, electrolyte disturbance, infectious diarrhea
MDM/Problems Addressed:
89-year-old male presenting to the emergency department for evaluation of difficulty tolerating p.o., diarrhea, weight loss and generally feeling unwell since laparoscopic surgery for recurring small bowel obstructions 5 days ago. 5 pound weight
loss during this time. Tachycardic on arrival and has dry mucous membranes. Will treat with IV fluids. Labs and obstructive series ordered. Plan to consult with surgery. Reassessment following
*Radiology
Radiology exam reviewed: preliminary read by ED provider (suspected ileus)
*Pulse Oximetry
Patient hypoxic: no
*Critical Care Note
Total Time (30-74mins, 75-104mins- exclusive of procedures): Not Applicable
Data Reviewed
Review of Other/Old Records Reveals: Records, Progress Notes and Discharge Summary
Source: patient, records and spouse
Patient Management
Discussion with other providers: Hospitalist and On Site Construction Superintendent
Escalation/DeEscalation of care consider admission/obs:
Patient's x-ray shows a suspected ileus. Chemistry consistent with mild dehydration. Given his age combined with weight loss and difficulty tolerating p.o. will admit for further evaluation and supportive care. I notified general surgery who
defers admission to hospitalist but will be available in consult. Hospitalist team accepts for continued evaluation and treatment.
ED Attending Note
-
Portions of this chart may have been created with voice recognition software.� Occasional wrong word or��sound alike� substitutions may have occurred due to the inherent limitations of voice recognition software.
Discharge Plan
Departure
Patient Disposition: Admit
Date of Disposition: 08/13/24
Time of Disposition: 11:37
Presentation/result/management discussed w/ accepting MD/DO: Hospitalist
Discharge Problem:
Ileus, Dehydration
Prescriptions:
No Action
warfarin [Jantoven] 5 MG tablet
5 mg PO SUTUTHSA@1700
warfarin [Jantoven] 2.5 MG tablet
2.5 mg PO MOWEFR@1700
atorvastatin 10 mg Tablet
10 mg PO HS
Refresh Optive 0.5-0.9 % Drops
1 drp BOTH EYES BIDPRN PRN (Reason: dryness)
pantoprazole 40 MG tablet,delayed release (DR/EC)
40 mg PO DAILYPRN PRN (Reason: gerd)
polyethylene glycol 3350 [Miralax] 17 gram Powder In Packet
17 g PO DAILY
aspirin 81 mg Tablet
81 mg PO 1XD
acetaminophen [Tylenol Extra Strength] 500 mg tablet
1,000 mg PO Q6HPRN PRN (Reason: mild pain) Qty: 1 0RF
Referrals:
Paul Desir MD [Family Provider] -
Interventions
Interventions:
*Risk Screen - Suicide Last Done: 08/13/24 09:31
*Neglect/Abuse Screening Last Done: 08/13/24 09:31
BF-Bsjpyk-Jqecthdixa Assessment Last Done: 08/13/24 11:23
Discharge Date and Time
Print Language: [place]
[2024-08-13] MEDS: PEPCID 20 MG IV (11:02)
[2024-08-13] MEDS: NSS 1000 IV ×2 (11:04→16:48)
[2024-08-13 11:27] LABS: % Basophils 0.7 % (0-2); % Eosinophils 0.7 % (0-6); % Immature Granulocytes 0.4 % (0-0.5); % Lymphocytes 19.1 % (20.5-51.1); % Monocytes 14.5 % (1.7-9.3); % Neutrophils 64.6 % (42.2-75.2); Absolute Lymphocytes 0.9 10^3/uL (1.2-3.4); Absolute Monocytes 0.7 10^3/uL (0.1-0.6); Hematocrit 46.3 % (39.0-52.0); Hemoglobin 16.3 g/dL (13.0-18.0); Mean Corp Hgb Conc. 35.2 g/dL (33.0-37.0); Mean Corpuscular Hgb 32.5 pg (27.0-31.0); Mean Corpuscular Volume 92.4 fL (80.0-94.0); Mean Platelet Volume 10.7 fL (7.4-10.4); Nucleated Red Blood Cells % 0 % (-); Platelet Count 121 10^3/uL (130-400); Red Blood Cell Count 5.01 10^6/uL (4.70-6.10); Red Cell Dist. Width 12.6 % (11.5-14.5); White Blood Cell Count 4.6 10^3/uL (4.8-10.8)
[2024-08-13 11:34] LABS: ALT (SGPT) 22 U/L (0-50); AST (SGOT) 24 U/L (17-59); Albumin 4.2 g/dl (3.5-5.0); Alkaline Phosphatase 45 U/L (38-126); Blood Urea Nitrogen 22 mg/dl (9-20); Calcium 9.7 mg/dl (8.4-10.2); Carbon Dioxide 21 mmol/L (22-30); Chloride 107 mmol/L (98-107); Glucose 121 mg/dl (70-99); Potassium 4.1 mmol/L (3.5-5.1); Sodium 140 mmol/L (135-145); Total Bilirubin 2.1 mg/dl (0.2-1.3); Total Protein 6.4 g/dl (6.3-8.2); eGFR > 60.00
--- NOTE | 2024-08-13 12:51 | CON.GS ---
Consultation
-
Date/Time Consultation Requested: 08/13/2024, 11:50
Date/Time Consultation Performed: 11/13/2023, 12:15
Requesting Provider: Calderon Malhotra PA-C
Performing Provider: Lio Suero MD
Reason for Consultation: ileus
Medical History
-
Chief Complaint: abominal pain
History of Present Illness:
89-year-old male with h/o gastroparesis, esophageal stricture with last dilation 05/2023, CAD with MA and CABG 2012 (recent stress testing without abnormality), PE in 2019 on warfarin, prior SBO's with SBO requiring surgery 03/2021 with ex lap/sbr,
left hernia repair 2020 and recently admitted in February 2024 and June 2024 for SBO which resolved without surgery, presenting with nausea and vomiting with abdominal pain. The patient underwent a diagnostic laparoscopy with lysis of adhesions by
Dr. Noble on 08/08/2024. He is feeling 'great' until the night he came home from the hospital on 08/09. He states he felt bloated at night and started to develop reflux. He lost 5 pounds in the past 3 days because he stopped eating. He had a few
bouts of diarrhea which is not normal for him. He noticed tenderness on his left side. Given the symptoms he came to the ER. In the ER his WBC is 4.6. He remains afebrile. Abdominal x-ray shows intraperitoneal free air most compatible with
recent surgery. Mild gaseous distention of small bowel and colon would favor an adynamic ileus. We have been consulted for further surgical opinion.
Past Medical History
Past Medical History: Other (CAD (MA), GERD (hiatal hernia), HTN, Hypercholesterolemia and Other (gastroperesis, esophageal stricture with last dilation 05/2023, PE in 2019 on chronic warfarin))
Past Surgical History: Other (Bowel Resection (03/2021 ex lap, timothy with sbr with Dr. Concepcion), Cardiac (CABG 2012), Hernia Repair (Left indirect inguinal with mesh [address] Noble), Orthopedic (lumbar fusion), Urological (Prostatectomy) and
Other (05/2023 EGD with dilatation of Schatzki's ring, follow EGD without abnormality )
Social History
Tobacco: Non-Smoker
Alcohol: None
Drug: None
Personal:
Living: With Family
Family History
Family History: Reviewed & Not Pertinent
Allergies / Home Medications
Allergy/AdvReac Type Severity Reaction Status Date / Time
promethazine [From Phenergan] Allergy hallucinati Verified 08/08/24 11:40
ons
�Medication �Instructions �Recorded �Confirmed �Type
warfarin 5 mg tablet (Jantoven) 5 mg PO SUTUTHSA@1700 Blood clot 03/27/22 08/13/24 History
prevention/tx
warfarin 2.5 mg tablet (Jantoven) 2.5 mg PO MOWEFR@1700 Blood clot 03/28/22 08/13/24 History
prevention/tx
atorvastatin 10 mg tablet 10 mg PO HS High Cholesterol 02/24/24 08/13/24 History
carboxymethylcellulose 0.5 1 drp BOTH EYES BIDPRN PRN dryness 06/24/24 08/13/24 History
%-glycerin 0.9 % eye drops
(Refresh Optive)
pantoprazole 40 mg tablet,delayed 40 mg PO DAILYPRN PRN gerd 06/24/24 08/13/24 History
release
polyethylene glycol 3350 17 gram 17 g PO DAILYPRN PRN constipation 06/24/24 08/13/24 History
oral powder packet (Miralax)
bismuth subsalicylate 525 mg/15 mL 525 mg PO DAILYPRN PRN gerd 08/13/24 08/13/24 History
oral suspension
Review of Systems
-
History Source: Patient
All other systems: Negative unless noted
Abdomen/GI: Abdominal Pain, Diarrhea and Other (reflux)
A 10 point review of systems was completed, and was negative except as per HPI.
Physical Exam
Vital Signs
Temp Pulse Resp BP Pulse Ox
97.8 F 113 16 150/107 99
08/13/24 09:28 08/13/24 09:28 08/13/24 09:28 08/13/24 09:28 08/13/24 09:28
08/12/24 08/13/24 08/14/24
06:59 06:59 06:59
Actual Weight 62.4 kg
Lab Results
08/13/24 11:01
08/13/24 11:01
WBC 4.6 10^3/uL (4.8-10.8) L 08/13/24 11:01
Hgb 16.3 g/dL (13.0-18.0) 08/13/24 11:01
Hct 46.3 % (39.0-52.0) 08/13/24 11:01
Plt Count 121 10^3/uL (130-400) L 08/13/24 11:01
Abs Immat Gran (auto) 0.0 10^3/uL (0-0.05) 08/13/24 11:01
Neutrophils % 64.6 % (42.2-75.2) 08/13/24 11:01
Physical Exam
General: Well Developed, Well Nourished and No Apparent Distress
GI: Soft, Tender (left sided, mild) and Distended (mild)
Skin: Warm and Dry
Neuro: AO x 3
Psych: Calm
Data Reviewed
-
Radiology: Image Personally Visualized and interpreted, Report Reviewed by me and Discussed with Patient
Labs: Labs Reviewed by me, Discussed with Physician and Discussed with Patient
Old Records: Reviewed
Assessment / Plan
-
Assessment: This is an 89 yo male with h/o gastroparesis, esophageal stricture with last dilation 05/2023, CAD with MA and CABG 2012 (recent stress testing without abnormality), PE in 2019 on warfarin, prior SBO's with SBO requiring surgery 03/2021
with ex lap/sbr, left hernia repair 2020 and recently admitted in February for SBO which resolved without surgery, s/p lysis of adheasions on 08/11/24 presenting with nausea and vomiting with abdominal pain which developed four days ago
Plan
-No plans for surgery at this time
-Started on clear liquid diet with IV fluids
-May need p.o. contrast study if does not improve
-Will follow
--- NOTE | 2024-08-13 13:17 | HPS.HSE ---
Addendum entered and electronically signed by Nessa Ramirez MD 08/13/24 13:23:
Patient states that stool has been dark and unsure if blood in the stool. Monitor for GI bleeding. Check Hemoccult.
Original Note:
Family Physician
-
Family Physician: Paul Desir
Chief Complaint
-
abdominal distention
History of Present Illness
89-year-old male past medical history of CAD status post CABG, hypertension, hyperlipidemia, multiple prior bowel obstructions status post prior exploratory laparotomy, lysis of adhesions and small bowel resection in 2020, status post recent lysis
of adhesions 5 days ago, GERD, pulmonary embolism few years ago on Coumadin presenting to the emergency room for continued intermittent discomfort throughout his abdomen, difficulty tolerating p.o. and frequent diarrhea. Since his discharge he was
told that he could resume his diet is normal but every time he tried to eat he would have large-volume diarrhea. He has lost 5 pounds since then. He has had acid reflux-like symptoms every time he eats increased belching. He denies any fevers or
chills.
He has not taken Coumadin in a few days.
He denies smoking. He drinks alcohol on occasion.
Medical History
Past Medical History
Past Medical History: Reports Other ( CAD status post CABG, hypertension, hyperlipidemia, multiple prior bowel obstructions status post prior exploratory laparotomy, lysis of adhesions and small bowel resection in 2020, status post recent lysis of
adhesions 5 days ago, GERD, pulmonary embolism few years ago on Coumadin)
Past Surgical History: Reports Other (Bowel Resection (03/2021 ex lap, timothy with sbr with Dr. Concepcion), Cardiac (CABG 2012), Hernia Repair (Left indirect inguinal with mesh [address] Noble), Orthopedic (lumbar fusion), Urological (Prostatectomy)
and Other (05/2023 EGD with dilatation of Schatzki's ring, follow EGD without abnormality )
Social History
Tobacco: Non-smoker
Alcohol: None
Drug: None
Family History
Family History: Not pertinent
Allergies / Home Medications
Allergies reflects when Allergies were last updated in [employer].
Home Medications with original date entered in [employer]
Allergy/Medication List:
Allergies
Allergy/AdvReac Type Severity Reaction Status Date / Time
promethazine [From Phenergan] Allergy hallucinati Verified 08/08/24 11:40
ons
Home Medications
warfarin 5 mg tablet (Jantoven) 5 mg PO SUTUTHSA@1700 Blood clot prevention/tx 03/27/22
warfarin 2.5 mg tablet (Jantoven) 2.5 mg PO MOWEFR@1700 Blood clot prevention/tx 03/28/22
atorvastatin 10 mg tablet 10 mg PO HS High Cholesterol 02/24/24
carboxymethylcellulose 0.5 %-glycerin 0.9 % eye drops (Refresh Optive) 1 drp BOTH EYES BIDPRN PRN dryness 06/24/24
pantoprazole 40 mg tablet,delayed release 40 mg PO DAILYPRN PRN gerd 06/24/24
polyethylene glycol 3350 17 gram oral powder packet (Miralax) 17 g PO DAILYPRN PRN constipation 06/24/24
bismuth subsalicylate 525 mg/15 mL oral suspension 525 mg PO DAILYPRN PRN gerd 08/13/24
Review of Systems
-
History Source: Patient
A 12 point ROS was completed and negative except as noted: Yes
Constitutional: Reports No Symptoms
EENT: Reports No Symptoms
Respiratory: Reports No Symptoms
Cardiac: Reports No Symptoms
Abdomen/GI: Reports See HPI
: Reports No Symptoms
Musculoskeletal: Reports No Symptoms
Skin: Reports No Symptoms
Neurological: Reports No Symptoms
Endocrine: Reports No Symptoms
Hematologic/Lymphatic: Reports No Symptoms
Psych: Reports No Symptoms
Physical Exam
Vital Signs
Vital Signs
Temp Pulse Resp BP Pulse Ox
97.8 F 113 16 150/107 99
08/13/24 09:28 08/13/24 09:28 08/13/24 12:00 08/13/24 09:28 08/13/24 09:28
Physical Exam
General: Well Developed, Well Nourished and No Apparent Distress
HEENT: NormoCephalic, Moist mucous membranes and Atraumatic
Respiratory: Clear
Cardiac: S1/S2 and Regular Rhythm; No Murmur or Rub
GI: Soft, Non Tender, Non Distended and Normal Bowel Sounds; No Organomegaly
Rectal: Deferred by Provider
Musculoskeletal: No Clubbing, No Cyanosis and No Edema
Skin: No Rash
Neuro: Nonfocal/grossly intact
Laboratory Results
-
08/13/24 11:01
08/13/24 11:01
Laboratory Results
Total Bilirubin 2.1 mg/dl (0.2-1.3) H 08/13/24 11:01
AST 24 U/L (17-59) 08/13/24 11:01
ALT 22 U/L (0-50) 08/13/24 11:01
Alkaline Phosphatase 45 U/L (38-126) 08/13/24 11:01
Data Reviewed
-
Lab Data: Labs Reviewed by me
Old Records: Reviewed
Impression/Plan
-
IMPRESSION:
PLAN:
# Postop ileus after lysis of adhesions
# Recent recurrent small bowel obstruction status post diagnostic laparoscopy/lysis of adhesions on 08/08
-Abdominal x-ray shows intraperitoneal free air compatible with history of recent surgery, mild gaseous distention of small bowel and colon favoring adynamic ileus
-Clear liquid diet as per surgery
-IV fluids
-Zofran, pain control with as needed Dilaudid
-Hold Coumadin for now
-Hold MiraLAX due to postop diarrhea
# GERD symptoms
# History of esophageal stricture/Schatzki's ring status post dilation/hiatal hernia
# History of gastritis/ gastroparesis
-IV Protonix
CAD status post CABG
Essential hypertension
Hyperlipidemia
-Hold statin for now
History of prior pulmonary embolism in 2019
-Hold Coumadin for now
Diverticulosis
Prostate cancer status post prostatectomy
Degenerative disc disease
Full code
DVT prophylaxis�heparin
Clear liquid diet
[2024-08-13 13:27] VITALS: BP 145/89
[2024-08-13 16:18] VITALS: BP 179/90
[2024-08-13 23:45] VITALS: BP 157/77
[2024-08-14] MEDS: NSS 1000 IV ×3 (02:00→23:08)
[2024-08-14 07:54] VITALS: BP 166/75
[2024-08-14] MEDS: PROTONIX IV 40 MG IV (08:01)
--- NOTE | 2024-08-14 08:51 | W.PN.HOSP.TC ---
Today's Communication/Plan
-
Plan to resume Coumadin tomorrow
Follow stool studies
Appreciate GI and Surgery teams
Assessment / Plan
Assessment / Plan
Physical Exam
General: Well Developed, Well Nourished and No Apparent Distress
HEENT: Normocephalic, Moist mucous membranes
Respiratory: Clear
Cardiac: S1/S2 and Regular Rhythm; No Murmur or Rub
GI: Soft, Non Tender, Non Distended and Normal Bowel Sounds
Musculoskeletal: No Cyanosis and No Edema
Skin: Warm. Dry.
Neuro: Nonfocal/grossly intact
Assessment/Plan
# Postop ileus after lysis of adhesions - likely GI dysmotility issue as his underlying cause
# Recent recurrent small bowel obstruction status post diagnostic laparoscopy/lysis of adhesions on 08/08
-Abdominal x-ray showed intraperitoneal free air compatible with history of recent surgery, mild gaseous distention of small bowel and colon favoring adynamic ileus
-Low residue diet as per surgery
-IV fluids
-Zofran, pain control with as needed Dilaudid
-Hold Coumadin as per discussion with surgery team communication via [employer] on 08/14/24 evening -- if patient stable or doing better tomorrow, will plan to resume Coumadin tomorrow
-Hold MiraLAX due to postop diarrhea
-Appreciate GI and surgery
# GERD symptoms
# History of esophageal stricture/Schatzki's ring status post dilation/hiatal hernia
# History of gastritis/ gastroparesis
-Continue IV Protonix
# CAD status post CABG
# Essential hypertension
Hyperlipidemia
-Hold statin for now
History of prior pulmonary embolism in 2019
-Hold Coumadin for now
Diverticulosis
Prostate cancer status post prostatectomy
Degenerative disc disease
Full code
DVT prophylaxis�heparin
Clear liquid diet
Anticipated Discharge: 24 - 48 hours
Subjective/Interval History
-
Date of Service: August 14, 2024
Patient was seen and examined. He reported still having diarrhea.
Objective Data
-
Labs:
Laboratory Results
08/14/24
08:15
WBC Pending
Hgb Pending
Hct Pending
Plt Count Pending
Sodium Pending
Potassium Pending
Chloride Pending
Carbon Dioxide Pending
BUN Pending
Creatinine Pending
Glucose Pending
Calcium Pending
Total Bilirubin Pending
AST Pending
ALT Pending
Alkaline Phosphatase Pending
Vital Signs:
Vital Signs
Temp Pulse Resp BP Pulse Ox
98 F 71 20 166/75 96
08/14/24 07:54 08/14/24 07:54 08/14/24 07:54 08/14/24 07:54 08/14/24 07:54
I&O
08/13/24 08/14/24 08/15/24
06:59 06:59 06:59
Intake Total 1480 / 1480
Balance 1480 / 1480
[2024-08-14 09:06] LABS: % Basophils 0.9 % (0-2); % Eosinophils 2.6 % (0-6); % Immature Granulocytes 0.4 % (0-0.5); % Lymphocytes 28.1 % (20.5-51.1); % Monocytes 13.6 % (1.7-9.3); % Neutrophils 54.4 % (42.2-75.2); Absolute Eosinophils 0.1 10^3/uL (0-0.7); Absolute Lymphocytes 1.3 10^3/uL (1.2-3.4); Absolute Monocytes 0.6 10^3/uL (0.1-0.6); Absolute Neutrophils 2.5 10^3/uL (1.4-6.5); Hematocrit 40.7 % (39.0-52.0); Hemoglobin 14.2 g/dL (13.0-18.0); Mean Corp Hgb Conc. 34.9 g/dL (33.0-37.0); Mean Corpuscular Hgb 32.9 pg (27.0-31.0); Mean Corpuscular Volume 94.4 fL (80.0-94.0); Mean Platelet Volume 10.3 fL (7.4-10.4); Nucleated Red Blood Cells % 0 % (-); Platelet Count 116 10^3/uL (130-400); Red Blood Cell Count 4.31 10^6/uL (4.70-6.10); Red Cell Dist. Width 12.6 % (11.5-14.5); White Blood Cell Count 4.6 10^3/uL (4.8-10.8)
--- NOTE | 2024-08-14 09:31 | W.PN.GS2 ---
Addendum entered and electronically signed by Jatin Adler MD 08/14/24 15:36:
I saw and examined the patient independently.
The resident's documentation was reviewed and I agree with the note, assessment and plan except where noted below.
Comment: This is an 89-year-old male recent surgery 08/09/2024, diagnostic lap and lysis of adhesions which was largely negative for any underlying extrinsic small bowel pathology. Favor GI dysmotility issue as his underlying cause.
Okay for full liquid diet, can advance as tolerated.
The patient will likely need further workup with GI, but this can be done as an outpatient. Appreciate GI input.
General surgery will follow peripherally, please call with any questions or concerns.
Original Note:
Today's Communication / Plan
-
No immediate plan for surgery. Recommending GI consult, pending stool studies & C.Diff.
Assessment / Plan
-
89 yo M with recent surgery on 08/09/2024 for lysis of adhesions with recurrent abdominal pain, N/V, loose watery stools
Plan:
- Advance to full liquid diet w/ IVF
- No immediate plan for surgery, patient is passing gas and stool, had recent CRIS, unlikely to be a surgically correctable disease process. Recommending GI consult.
- Pending stool studies for possible infectious causes of loose stools. Patient is taking daily PPI, had several recent hospital stays, will order C.Diff Antigen/Toxin as well.
Subjective Data
-
No acute events overnight. Not experiencing any nausea, vomiting or abdominal pain at this time, tolerating CLD well. Had 4 liquid NB BMs overnight.
Objective Data
-
Intake and Output
08/13/24 08/14/24 08/15/24
06:59 06:59 06:59
Intake Total 1480 / 1480
Balance 1480 / 1480
Intake:
Oral fluids 480 / 480
IV fluids (Total) 1000 / 1000
Other:
Number of approximated MODERATE 3
amounts of urine
Number of unmeasured liquid
stools
Rectum 4
Vital Signs
Temp Pulse Resp BP Pulse Ox
98 F 71 20 166/75 96
08/14/24 07:54 08/14/24 07:54 08/14/24 07:54 08/14/24 07:54 08/14/24 07:54
Lab Results
08/14/24 08:15
Calcium 9.7 mg/dl (8.4-10.2) 08/13/24 11:01
Total Bilirubin 2.1 mg/dl (0.2-1.3) H 08/13/24 11:01
AST 24 U/L (17-59) 08/13/24 11:01
ALT 22 U/L (0-50) 08/13/24 11:01
Alkaline Phosphatase 45 U/L (38-126) 08/13/24 11:01
Total Protein 6.4 g/dl (6.3-8.2) 08/13/24 11:01
Albumin 4.2 g/dl (3.5-5.0) 08/13/24 11:01
Physical Exam
-
General: NAD
Abdominal: Soft, nondistended, nontender. No rebound or guarding.
[2024-08-14 09:38] LABS: ALT (SGPT) 18 U/L (0-50); AST (SGOT) 21 U/L (17-59); Albumin 2.4 g/dl (3.5-5.0); Alkaline Phosphatase 44 U/L (38-126); Blood Urea Nitrogen 19 mg/dl (9-20); Carbon Dioxide 19 mmol/L (22-30); Chloride 110 mmol/L (98-107); Estimated Creatinine Clearance 56 ml/min; Glucose 97 mg/dl (70-99); Sodium 139 mmol/L (135-145); Total Protein 5.5 g/dl (6.3-8.2); eGFR > 60.00
--- NOTE | 2024-08-14 11:17 | CM ---
Patient seen bedside, refused to answer initial assessment questions, reports he has already answered these questions three times. Patient reports nothing has changed from him previous admissions. Per previous CM note, patient resides with his
in a split level home, no steps to enter. Patient has a walker at home if needed. Patient PCP Paul Desir, pharmacy [facility]. CM will continue to follow for all discharge planning needs.
Plan; home with , no needs.
--- NOTE | 2024-08-14 11:24 | CON.GI ---
Addendum entered and electronically signed by Andrew Valencia DO 08/14/24 18:10:
I saw and examined the patient.
The CLIENT SERVER PROGRAMMER's note was reviewed and I agree with the note.
Comment: This is an 89 y. male with past medical history of EoE (on PPI) c/b prior food impactions along with previous dilations, hx of esophageal perforation (2016, felt to be 2/2 prior dilation, treated conservatively), gastroparesis, PE (on
warfarin) and prior SBO with SB resection with CRIS (2020) and recurrent SBO on 02/2024 and again on 06/2024 (treated conservatively with NGT decompression) who underwent recent exp-lap on 08/09/[address] Noble. Now returning on 08/13 with
abdominal discomfort and significant, non-bloody, watery diarrhea as an outpatient. Patient denies any prior chronic diarrhea in the past or previous difficulty moving his bowels. He reports taking miralax on a regular basis with fairly good relief
of his chronic constipation and to keep his bowels regular given his prior SBOs. No other medication changes or recent antibiotics. He tolerated the surgery well on 08/09 and was initially feeling fine aside for mild, incisional tenderness but
without any pain, nausea or vomiting. A few days later, he had profuse, watery, non-bloody diarrhea along with bloating and gas. Denies any similar symptoms in the past. Had some abdominal cramping as well but denies any pain for me this afternoon.
Given his persistent watery diarrhea he came to the ED for further evaluation. Labs upon admission were grossly unremarkable except for an albumin 2.4 (previously nml) and Abd X-ray revealing intraperitoneal free air (to be expected after surgery)
along with mild gaseous distention of the small bowel and colon, favoring an adynamic ileus. Etiology suspicious for resolving, transient ileus after his recent surgery versus acute infectious diarrhea. Stool cultures still pending and CDI has been
ruled out. Much less likely a SB dysmotility disorder given acuity of symptoms. Favor ongoing conservative treatment as below and supportive care.
Recommendations:
- Okay to advance diet as tolerated to dairy-free, low-fiber, low-residue diet
- Await rest of stool cultures, still pending. C Diff (-)
- If rest of infectious stool studies are negative, could consider starting Immodium as needed
- Monitor electrolytes, keep K > 4.0 and Mg . 2.0
- Would defer further cross-sectional imaging of the SB at this time as without any pain and reassuring abdominal exam
- Avoid opioids to further avoid opioid-induced dysmotility
- Rest of care as outlined below
GI team will continue to follow while inpatient.
Original Note:
Consultation
-
Date/Time Consultation Requested: 08/14/24 1000
Date/Time Consultation Performed: 27/05/24 1125
Requesting Provider: Kasi Jain MD
Performing Provider: ANNIE Amezcua, Opal Proctor DO
Reason for Consultation: abdominal pain, nausea/vomiting
Medical History
Chief Complaint / HPI
Chief Complaint: abdominal bloating, nausea, poor appetite
History of Present Illness:
This is an 88 year old male with a past medical history of eosinophilic esophagitis, h/o food impactions, prior esophageal dilation, and esophageal perforation (2016, no surgery required), gastroparesis, PE on coumadin, GERD, prior FL, HTN,
hyperlipidemia, pancreatic cyst, and h/o small bowel obstruction s/p small bowel resection w lysis of adhesions (2020) and recently exp lap last week on 08/[address] Noble with CRIS. He now returns with abdominal pain with difficulty tolerating
diet and new diarrhea. Stool cx with Ecoli neg and other cx pending. Pt also concern for wt loss. He admits to slow wt loss but also had inability to gain weight.
Pt currently admits to feeling of obstructive symptoms with increased GERD, bloating that have improved in past with NGT decompression. He does admit to some mild bloating but some improvement since surgery. He is concerned as since last week
he will eat and will feel stomach gurgling then have diarrhea. He denies current abdominal pain, blood or black in stools. Only new med was Maalox that he took a few months ago that he takes as needed. Last EGD [address] Acevedo with normal
stomach and duodenum. colonoscopy 2019 with diverticulosis.
Past Medical History
Past Medical History: CAD, GERD, HTN, Hypercholesterolemia, FL and Other (PE (on warfarin), eosinophilic esophagitis, Schatzki ring, prior esophageal perforation, gastroparesis, pancreatic cyst, h/o SBO s/p small bowel resection/lysis of adhesions)
Past Surgical History: Bowel Resection, Cardiac (CABG 2012), Orthopedic (lumbar fusion), Urological (prostatectomy) and Other (mouth growth removal, hernia repair with mesh 2020)
Social History
Tobacco: Non-Smoker
Alcohol: Occasional
Drug: None
Personal:
Living: With Family
Family History
Family History: Other (paternal GF with ? colon CA)
Allergies / Home Medications
Allergy/AdvReac Type Severity Reaction Status Date / Time
promethazine [From Phenergan] Allergy hallucinati Verified 08/08/24 11:40
ons
�Medication �Instructions �Recorded
warfarin 5 mg tablet (Jantoven) 5 mg PO SUTUTHSA@1700 Blood clot 03/27/22
prevention/tx
warfarin 2.5 mg tablet (Jantoven) 2.5 mg PO MOWEFR@1700 Blood clot 03/28/22
prevention/tx
atorvastatin 10 mg tablet 10 mg PO HS High Cholesterol 02/24/24
carboxymethylcellulose 0.5 1 drp BOTH EYES BIDPRN PRN dryness 06/24/24
%-glycerin 0.9 % eye drops
(Refresh Optive)
pantoprazole 40 mg tablet,delayed 40 mg PO DAILYPRN PRN gerd 06/24/24
release
polyethylene glycol 3350 17 gram 17 g PO DAILYPRN PRN constipation 06/24/24
oral powder packet (Miralax)
bismuth subsalicylate 525 mg/15 mL 525 mg PO DAILYPRN PRN gerd 08/13/24
oral suspension
Review of Systems
-
History Source: Patient
Constitutional: Reports Weight Loss
EENT: Reports No Symptoms
Respiratory: Reports No Symptoms
Cardiac: Reports No Symptoms
Abdomen/GI: Reports Abdominal Pain (on admission mild post surgical sites ) and Diarrhea
: Reports No Symptoms
Musculoskeletal: Reports No Symptoms
Skin: Reports No Symptoms
Neurological: Reports Weakness
Endocrine: Reports No Symptoms
Hematologic/Lymphatic: Reports No Symptoms
Vital Signs
Temp Pulse Resp BP Pulse Ox
98 F 71 20 166/75 96
08/14/24 07:54 08/14/24 07:54 08/14/24 07:54 08/14/24 07:54 08/14/24 07:54
Physical Exam
Exam
General: Well Developed, Well Nourished and No Apparent Distress
HEENT: Normocephalic and Anicteric
Respiratory: Clear
Cardiac: Regular Rhythm
GI: Soft, Tender (mild tenderness around surgical sites), Distended (minimal ) and Other (LLQ crepitus )
Musculoskeletal: No Clubbing and No Cyanosis
Skin: Warm and Dry
Neuro: Awake, Alert and AO x 3
Psych: Calm
Results
WBC 4.6 10^3/uL (4.8-10.8) L 08/14/24 08:15
Hgb 14.2 g/dL (13.0-18.0) 08/14/24 08:15
Hct 40.7 % (39.0-52.0) 08/14/24 08:15
MCV 94.4 fL (80.0-94.0) H 08/14/24 08:15
Plt Count 116 10^3/uL (130-400) L 08/14/24 08:15
Absolute Neuts (auto) 2.5 10^3/uL (1.4-6.5) 08/14/24 08:15
Sodium 139 mmol/L (135-145) 08/14/24 08:15
Potassium 4.0 mmol/L (3.5-5.1) 08/14/24 08:15
Chloride 110 mmol/L (98-107) H 08/14/24 08:15
Carbon Dioxide 19 mmol/L (22-30) L 08/14/24 08:15
BUN 19 mg/dl (9-20) 08/14/24 08:15
Creatinine 0.8 mg/dL (0.7-1.3) 08/14/24 08:15
Calcium 9.0 mg/dl (8.4-10.2) 08/14/24 08:15
Total Bilirubin 2.0 mg/dl (0.2-1.3) H 08/14/24 08:15
AST 21 U/L (17-59) 08/14/24 08:15
ALT 18 U/L (0-50) 08/14/24 08:15
Alkaline Phosphatase 44 U/L (38-126) 08/14/24 08:15
Diagnostic Image Results:
Prior GI Procedures:
EGD: [address] Acevedo with normal stomach and duodenum.
Colonoscopy: 2019 with diverticulosis.
Assessment / Plan
-
This is an 88 year old male with a past medical history of eosinophilic esophagitis, h/o food impactions, prior esophageal dilation, and esophageal perforation (2016, no surgery required), gastroparesis, PE on Coumadin, GERD, prior FL, HTN,
hyperlipidemia, pancreatic cyst, and h/o small bowel obstruction s/p small bowel resection w lysis of adhesions (2020) and recently exp lap last week on 08/[address] Noble with CRIS. He now returns with abdominal pain with difficulty tolerating
diet and new diarrhea. Stool cx with Ecoli neg and other cx pending. Pt also concern for wt loss. He admits to slow wt loss but also had inability to gain weight.
08/13/24 obstruction series
Intraperitoneal free air most compatible with the reported history of recent surgery. Mild gaseous distention of small bowel and colon would favor an adynamic ileus but clinical correlation is recommended.
-diarrhea
-recent exp lap with CRIS 08/09/24 with prior SBR with CRIS 2020
-wt loss
-hx gastroparesis
hx eosinophilic esophagitis, h/o food impactions, prior esophageal dilation, and esophageal perforation (2017, no surgery required)
other med problems:
-PE on Coumadin
-GERD
-prior FL
- HTN
-hyperlipidemia
- pancreatic cyst
PLAN:
etiology of diarrhea unclear -- infectious, vs ? mild post-op ileus now resolving as noted on imaging, vs other
await stool studies ecoli neg so far
can consider contrast enhanced study if not improving
can consider Imodium but would hold for now with recent surgery last week
remains on full liquid diet advance as tolerated
add supplement BID with concern for wt loss
appreciate surgical input
will follow
-
-
Thank you for consultation and allowing me to participate in the patient's care. Please call the contact lens molder GI physician during the after hours with any questions or concerns.
[2024-08-14 15:00] VITALS: BP 184/91
[2024-08-14 17:26] VITALS: BP 180/93
[2024-08-14] MEDS: APRESOLINE 5 MG IV (17:47)
[2024-08-14 23:35] VITALS: BP 145/83
[2024-08-15 07:58] VITALS: BP 158/79
[2024-08-15] MEDS: PROTONIX IV 40 MG IV (08:03)
[2024-08-15 08:47] LABS: INR 1.26; PT 15.6 Sec (11.4-14.6)
--- NOTE | 2024-08-15 09:13 | W.PN.GS2 ---
Today's Communication / Plan
-
- Further care and management per GI
- Please call with any questions or concerns
Assessment / Plan
-
89 yo M with recent surgery on 08/09/2024 for lysis of adhesions with recurrent abdominal pain, N/V, loose watery stools
Difficult to fully understand completely as underlying pathology, however, at this point in time given a negative exploration symptoms are best explained by motility issue. Differential includes infectious etiology, micro negative thus far. No
role or indication for repeat surgical intervention at this time.
Plan:
- LRD
- Further care and management per GI
- Please call with any questions or concerns
Subjective Data
-
Date of Service: August 15, 2024
Family complaints. Denies any nausea or vomiting. Passing flatus and loose BMs.
Objective Data
-
Intake and Output
08/14/24 08/15/24 08/16/24
06:59 06:59 06:59
Intake Total 1480 / 1480 2180 / 2180
Balance 1480 / 1480 2180 / 2180
Intake:
Oral fluids 480 / 480 1180 / 1180
IV fluids (Total) 1000 / 1000 1000 / 1000
Other:
Number of approximated MODERATE 3 1
amounts of urine
How many times incontinent 1
MODERATE amount urine
Number of unmeasured liquid
stools
Rectum 4
Vital Signs
Temp Pulse Resp BP Pulse Ox
97.9 F 65 16 158/79 97
08/15/24 07:58 08/15/24 07:58 08/15/24 07:58 08/15/24 07:58 08/15/24 07:58
Calcium 9.0 mg/dl (8.4-10.2) 08/14/24 08:15
Total Bilirubin 2.0 mg/dl (0.2-1.3) H 08/14/24 08:15
AST 21 U/L (17-59) 08/14/24 08:15
ALT 18 U/L (0-50) 08/14/24 08:15
Alkaline Phosphatase 44 U/L (38-126) 08/14/24 08:15
Total Protein 5.5 g/dl (6.3-8.2) L 08/14/24 08:15
Albumin 2.4 g/dl (3.5-5.0) L D 08/14/24 08:15
Physical Exam
-
Gen: NAD
Abd: soft, NT, minimal distension, non-peritoneal, incisions c/d/i
[2024-08-15 09:26] LABS: % Eosinophils 2.7 % (0-6); % Immature Granulocytes 0.5 % (0-0.5); % Lymphocytes 25.7 % (20.5-51.1); % Monocytes 15.6 % (1.7-9.3); % Neutrophils 54.5 % (42.2-75.2); Absolute Eosinophils 0.1 10^3/uL (0-0.7); Absolute Monocytes 0.6 10^3/uL (0.1-0.6); Absolute Neutrophils 2.2 10^3/uL (1.4-6.5); Hematocrit 41.6 % (39.0-52.0); Hemoglobin 14.6 g/dL (13.0-18.0); Mean Corp Hgb Conc. 35.1 g/dL (33.0-37.0); Mean Corpuscular Hgb 32.9 pg (27.0-31.0); Mean Corpuscular Volume 93.7 fL (80.0-94.0); Mean Platelet Volume 10.6 fL (7.4-10.4); Nucleated Red Blood Cells % 0 % (-); Platelet Count 123 10^3/uL (130-400); Red Blood Cell Count 4.44 10^6/uL (4.70-6.10); Red Cell Dist. Width 12.6 % (11.5-14.5)
[2024-08-15 11:08] LABS: Blood Urea Nitrogen 12 mg/dl (9-20); Calcium 9.4 mg/dl (8.4-10.2); Carbon Dioxide 24 mmol/L (22-30); Chloride 107 mmol/L (98-107); Estimated Creatinine Clearance 56 ml/min; Glucose 95 mg/dl (70-99); Potassium 3.6 mmol/L (3.5-5.1); Sodium 141 mmol/L (135-145); eGFR > 60.00
--- NOTE | 2024-08-15 12:58 | CM ---
Addendum entered by Belkys García 08/15/24 15:18:
IMM reviewed, signed, placed in chart.
Original Note:
Patient seen bedside, patient did not want to talk to CM at this time. CM will continue to follow for all discharge planning needs.
Plan; home no needs when stable.
--- NOTE | 2024-08-15 13:28 | W.PN.GI.CBS2 ---
Today's Communication / Plan
-
discharge planning
Assessment / Plan
-
This is an 88 year old male with a past medical history of eosinophilic esophagitis, h/o food impactions, prior esophageal dilation, and esophageal perforation (2016, no surgery required), gastroparesis, PE on Coumadin, GERD, prior NH, HTN,
hyperlipidemia, pancreatic cyst, and h/o small bowel obstruction s/p small bowel resection w lysis of adhesions (2020) and recently exp lap last week on 08/[address] Noble with [facility]. He now returns with abdominal pain with difficulty tolerating
diet and new diarrhea. Stool cx negative pending Salmonella. Pt also concern for wt loss. He admits to slow wt loss but also had inability to gain weight.
08/13/24 obstruction series
Intraperitoneal free air most compatible with the reported history of recent surgery. Mild gaseous distention of small bowel and colon would favor an adynamic ileus but clinical correlation is recommended.
-diarrhea
-recent exp lap with [facility] 08/09/24 with prior SBR with [facility] 2020
-wt loss
-hx gastroparesis
hx eosinophilic esophagitis, h/o food impactions, prior esophageal dilation, and esophageal perforation (2016, no surgery required)
other med problems:
-PE on Coumadin
-GERD
-prior NH
- HTN
-hyperlipidemia
- pancreatic cyst
PLAN:
etiology of diarrhea unclear -- infectious, vs ? mild post-op ileus now resolving as noted on imaging, vs other
unclear recurrent SBO - plan for [facility] outpatient
can do Pepto PRN - will give one time dose discussed may make stool dark
low residue diet
Can add pepcid c/o regurgitation
continue supplement BID with concern for wt loss
appreciate surgical input
pt will be discharged today d/w hospitalist
Outpatient appt made for patient 09/14 at 930 am with me pt given card he is aware
Total Time Spent with Patient (in minutes): 35
Subjective
Subjective
Date of Service: August 15, 2024
feels better only 2 bm so far today
every day diarrhea slowing down
Objective
Data Reviewed
Laboratory Data:
Laboratory Results
08/15/24 08:55
08/15/24 08:55
Laboratory Results
PT 15.6 Sec (11.4-14.6) H 08/15/24 07:31
INR 1.26 08/15/24 07:31
Total Bilirubin 2.0 mg/dl (0.2-1.3) H 08/14/24 08:15
AST 21 U/L (17-59) 08/14/24 08:15
ALT 18 U/L (0-50) 08/14/24 08:15
Alkaline Phosphatase 44 U/L (38-126) 08/14/24 08:15
Vital Signs and I&O:
Vital Signs
Temp Pulse Resp BP Pulse Ox
97.9 F 65 16 158/79 97
08/15/24 07:58 08/15/24 07:58 08/15/24 07:58 08/15/24 07:58 08/15/24 07:58
I&O
08/14/24 08/15/24 08/16/24
06:59 06:59 06:59
Intake Total 1480 / 1480 2180 / 2180
Balance 1480 / 1480 2180 / 2180
Physical Exam
Physical Exam
HEENT: Anicteric
Cardiology: Normal Sinus Rhythm
Pulmonary: Clear
GI: Non Distended and Non Tender
--- NOTE | 2024-08-15 13:43 | W.PN.HOSP.TC ---
Today's Communication/Plan
-
Discharge today
Assessment / Plan
Assessment / Plan
Physical Exam
General: Not in acute distress
HEENT: Normocephalic, Moist mucous membranes
Respiratory: Clear to Auscultation Bilaterally
Cardiac: S1/S2 and Regular Rhythm
GI: Soft, Non Tender, Non Distended and Normal Bowel Sounds
Musculoskeletal: No Cyanosis and No Edema
Skin: Warm. Dry.
Neuro: Nonfocal/grossly intact
Assessment/Plan
# Postop ileus after lysis of adhesions - likely GI dysmotility issue as his underlying cause
# Recent recurrent small bowel obstruction status post diagnostic laparoscopy/lysis of adhesions on 08/08
-Abdominal x-ray showed intraperitoneal free air compatible with history of recent surgery, mild gaseous distention of small bowel and colon favoring adynamic ileus
-Low residue diet as per surgery
-Status post IV fluids
-Zofran, pain control with as needed Dilaudid
-Resume home Coumadin, monitor INR closely outpatient
-Hold MiraLAX due to postop diarrhea
-Can do Imodium prn or Pepto Bismol prn for diarrhea outpatient
-Change home Pantoprazole to 40 mg scheduled daily
-Pepcid PRN daily for heartburn/regurgitation symptoms
-Appreciate GI and surgery
-Follow-up with Dr. Acevedo outpatient
# GERD symptoms
# History of esophageal stricture/Schatzki's ring status post dilation/hiatal hernia
# History of gastritis/ gastroparesis
-Continue PO Protonix
#Weight loss
# CAD status post CABG
# Essential hypertension
Hyperlipidemia
-Continue home statin
History of prior pulmonary embolism in 2019
-Continue home Coumadin
Diverticulosis
Prostate cancer status post prostatectomy
Degenerative disc disease
Full code
DVT prophylaxis�heparin
More than 30 minutes spent in discharge including
Final examination of the patient
Summarizing hospital stay
Instructions for continuing care to all relevant caregivers
Preparation of discharge records, prescriptions, and referral forms
Total time spent (in minutes): 39
Anticipated Discharge: Today
Subjective/Interval History
-
Date of Service: August 15, 2024
Patient was seen and examined. He reported he is still having diarrhea, but the diarrhea has improved.
Objective Data
-
Labs:
Laboratory Results
08/15/24 08/15/24
07:31 08:55
WBC 4.0 L
Hgb 14.6
Hct 41.6
Plt Count 123 L
PT 15.6 H
INR 1.26
Sodium 141
Potassium 3.6
Chloride 107
Carbon Dioxide 24
BUN 12
Creatinine 0.8
Glucose 95
Calcium 9.4
Vital Signs:
Vital Signs
Temp Pulse Resp BP Pulse Ox
97.9 F 65 16 158/79 97
08/15/24 07:58 08/15/24 07:58 08/15/24 07:58 08/15/24 07:58 08/15/24 07:58
I&O
08/14/24 08/15/24 08/16/24
06:59 06:59 06:59
Intake Total 1480 / 1480 2180 / 2180
Balance 1480 / 1480 2180 / 2180
[2024-08-15] MEDS: PINK BISMUTH 525 MG PO (14:03)
[2024-08-15 15:25] VITALS: BP 142/80
== END 2024-08-15 15:37 | disposition home or self-care (01) | DRG 394 ==
LOC: 4 WEST ACU 13:35
PROVIDERS: Physician Assistant Medical; ADMITTING PHYSICIAN Hospitalist; ATTENDING PHYSICIAN Hospitalist; CONSULT PHYSICIAN Internal Medicine; EMERGENCY PHYSICIAN Student in an Organized Health Care Education/Training Program; FAMILY PHYSICIAN Family Medicine; OTHER PHYSICIAN Surgery
DX: K91.89 Other postprocedural complications and disorders of digestive system (principal); K56.0 Paralytic ileus; K86.2 Cyst of pancreas; I10 Essential (primary) hypertension; K21.9 Gastro-esophageal reflux disease without esophagitis; R63.4 Abnormal weight loss; Z68.20 Body mass index [BMI] 20.0-20.9, adult; E78.00 Pure hypercholesterolemia, unspecified; K57.30 Diverticulosis of large intestine without perforation or abscess without bleeding; I25.2 Old myocardial infarction
CPT/HCPCS: 74022; 80048; 80053; 85025; 85610; 87045; 87046; 87077; 87324; 87427; 87449; 96361; 96374; 99285

== ENCOUNTER → 2024-09-25 13:57 | Outpatient (REF) | payer OTHER, SELFPAY | LOC: HWRAD 13:57 | PROVIDERS: ATTENDING PHYSICIAN Internal Medicine Gastroenterology; FAMILY PHYSICIAN Family Medicine | DX: K56.609 Unspecified intestinal obstruction, unspecified as to partial versus complete obstruction (principal) | CPT/HCPCS: 74177; Q9967 ==

== ENCOUNTER → 2024-10-19 14:11 | Outpatient (REF) | payer OTHER, SELFPAY | LOC: HWRAD 14:11 | PROVIDERS: ATTENDING PHYSICIAN Physician Assistant; FAMILY PHYSICIAN Family Medicine | DX: N50.89 Other specified disorders of the male genital organs (principal) | CPT/HCPCS: 76870; 93976 ==

== ENCOUNTER → 2024-10-24 17:14 | Outpatient (REF) | payer OTHER, SELFPAY | LOC: MRI 17:14 | PROVIDERS: ATTENDING PHYSICIAN Nurse Practitioner Family | DX: R51.9 Headache, unspecified (principal) | CPT/HCPCS: 70553; A9575 ==

== ENCOUNTER 2025-01-19 05:53 | Day surgery (SDC) | payer OTHER, SELFPAY ==
[2025-01-19 06:20] VITALS: BP 178/82; BMI 21.0
[2025-01-19 06:21] VITALS: BMI 21.0
[2025-01-19] MEDS: TYLENOL 1000 MG PO (06:21)
[2025-01-19] MEDS: NORMOSOL-R/PLASMALYTE-A 1000 IV (06:36)
[2025-01-19 06:50] LABS: INR 1.06; PT 14.4 Sec (11.4-14.6)
--- NOTE | 2025-01-19 08:34 | W.IMMPOSTOP ---
Addendum entered and electronically signed by Quique Noble MD 01/19/25 16:18:
#[id number]
Original Note:
Surgical Immed Post Op Note
-
Primary Surgeon: Quique Noble MD
Assisting Surgeon: BABITA Yi
Pre-op Diagnosis: Right inguinal hernia
Post-op Diagnosis: Right inguinal, indirect
Procedure Performed: Open Maura tension-free mesh repair right inguinal hernia
Anesthesia Type: Monitored anesthetic care +1% lidocaine/0.25% Marcaine
Specimen / Cultures: None
Estimated Blood Loss: 4 mL
Complications: None immediate
Operative Findings: Right indirect inguinal hernia. Sac ligated with 2-0 Vicryl suture ligature. No significant lipoma of cord structures. Direct space normal. Onlay tension-free mesh repair Bard soft mesh 10 cm x 5 cm secured with interrupted
2-0 PDS.
[2025-01-19 08:35] VITALS: BP 125/64
[2025-01-19 08:45] VITALS: BP 138/64
[2025-01-19 09:00] VITALS: BP 156/68
[2025-01-19 09:15] VITALS: BP 170/59
== END 2025-01-19 09:35 | disposition home or self-care (01) ==
LOC: SDS 05:53
PROVIDERS: ATTENDING PHYSICIAN Surgery
DX: K40.90 Unilateral inguinal hernia, without obstruction or gangrene, not specified as recurrent (principal)
CPT/HCPCS: 49505; 85610; C1894

== ENCOUNTER 2025-02-26 18:55 | Emergency (ER) | payer OTHER, SELFPAY ==
[2025-02-26 18:57] VITALS: BP 181/119
[2025-02-26 19:26] LABS: % Basophils 1.3 % (0-2); % Eosinophils 2.8 % (0-6); % Immature Granulocytes 0.3 % (0-0.5); % Monocytes 19.6 % (1.7-9.3); Absolute Eosinophils 0.1 10^3/uL (0-0.7); Absolute Monocytes 0.6 10^3/uL (0.1-0.6); Absolute Neutrophils 1.5 10^3/uL (1.4-6.5); Hematocrit 43.5 % (39.0-52.0); Hemoglobin 15.1 g/dL (13.0-18.0); Mean Corp Hgb Conc. 34.7 g/dL (33.0-37.0); Mean Corpuscular Hgb 33.9 pg (27.0-31.0); Mean Corpuscular Volume 97.8 fL (80.0-94.0); Mean Platelet Volume 10.5 fL (7.4-10.4); Nucleated Red Blood Cells % 0 % (-); Platelet Count 110 10^3/uL (130-400); Red Blood Cell Count 4.45 10^6/uL (4.70-6.10); Red Cell Dist. Width 12.5 % (11.5-14.5); White Blood Cell Count 3.2 10^3/uL (4.8-10.8)
[2025-02-26 19:42] LABS: ALT (SGPT) 25 U/L (0-50); AST (SGOT) 28 U/L (17-59); Albumin 4.2 g/dl (3.5-5.0); Alkaline Phosphatase 66 U/L (38-126); Blood Urea Nitrogen 20 mg/dl (9-20); Calcium 9.7 mg/dl (8.4-10.2); Carbon Dioxide 28 mmol/L (22-30); Chloride 106 mmol/L (98-107); Glucose 120 mg/dl (70-99); Potassium 4.6 mmol/L (3.5-5.1); Sodium 140 mmol/L (135-145); Total Bilirubin 0.9 mg/dl (0.2-1.3); Total Protein 6.8 g/dl (6.3-8.2); eGFR > 60.00
[2025-02-26 19:50] LABS: Troponin I < 0.012 ng/ml
[2025-02-26 22:22] VITALS: BP 153/87; BMI 22.5
[2025-02-26 22:30] VITALS: BP 149/82
[2025-02-26 23:00] VITALS: BP 163/99
--- NOTE | 2025-02-26 23:19 | ED.GENMED ---
History of Present Illness
General
Chief Complaint: Chest Pain
Source: patient, spouse and previous hospital records (January 20, 2025, right inguinal hernia repair.)
Exam Limitations: none
Time Seen by Provider: 02/26/25 22:35
Nursing documentation reviewed up to this point in time: agreed with
History of Present Illness
History of Present Illness:
This is an 89-year-old gentleman with history of hypertension, GERD/Schatzki's ring, CAD, CABG 2012. History of small PE 2018. Has been maintained on Coumadin since then.
He presents with intermittent sharp stabbing left upper chest pain that began around 3 PM today. He admits to similar sporadic chest pain, various times over a number of years with unremarkable cardiac evaluation. Previous ED visit July 2024
with similar type of chest pain. He admits that he gets nervous with any type of chest pain, also admits that he 'feels silly' coming to the ED but likes to be reassured.
He was also concerned when he checked his blood pressure and it was elevated with systolic over 200. He took his evening dose of losartan at 6 PM instead of his usual 9 PM.
He follows regularly with Dr. Small.
He underwent right inguinal hernia repair January 20, had stopped his Coumadin 5 days prior to the surgery and then resumed 1 day after the surgery. He has not had INR rechecked but states his PT/INR is generally well-controlled on his current
Coumadin schedule.
He denies shortness of breath, no diaphoresis, no palpitations, no dizziness or lightheadedness, no nausea nor vomiting. He does admit to mild right lower abdominal discomfort, improving over the past month.
He also admits to working out in the yard over the past 2 days as the weather finally broke. No heavy lifting but had been bending, leaning etc doing yard work. No chest pain over the past 2 days with physical exertion/activity.
No change in weight. He denies leg pain or swelling.
Past History
Past History
ED Past Medical History: CAD, GERD, HTN, Hypercholesterolemia, [place] and Other (hiatal hernia, PE 2019)
ED Past Surgical History: Cardiac (CABG 2012), Orthopedic (Lumbar fusion), Urological (Prostatectomy) and Other (Mouth growth removed, esophageal procedure to fix a tear; right inguinal hernia repair January 20, 2025)
Patient has exhibited threatening behavior?: No
PSI?: No
Social History
Tobacco: Non-smoker
Alcohol: None
Drug: None
Personal:
Living: with family
Employment: Retired
Family History
Family History: Hypertension
Phy Exam
Physical Exam
Physical Exam:
GENERAL: 89-year-old gentleman appears his stated age, bright and alert, pleasant, appears in no acute distress. is accompanying.
EYE: anicteric
NECK: Supple, nontender, no meningismus, no significant adenopathy. No JVD.
ENT: oral mucosa is moist. No rhinorrhea.
CARDIAC: Regular rate and rhythm. no murmur. No palpable chest wall tenderness.
LUNGS: Clear breath sounds bilaterally, no acute respiratory distress, no wheezes/rales/rhonchi
ABDOMEN: Soft, nondistended, without focal tenderness, normoactive BS.
NEUROLOGICAL: Alert and oriented x3, no focal neuro deficits.
SKIN: Warm and dry, normal color, skin intact. No rash.
MUSCULOSKELETAL: No C/C/E. peripheral pulses are full and equal b/l. No palpable tenderness.
PSYCH: Normal and appropriate interaction.
Scores
Heart Score for Chest Pain Patients
STEMI patient?: No
History: Slightly or Non-Suspicious
ECG: Normal
Age: >/= 65 years
Risk Factors: >/= 3 Risk Factors or History of CAD
Troponin: </= Normal Limit
Heart Score for Chest Pain Patients: 4
Heart Score Risk: 20.3% MACE over next 6 weeks
Course
Orders/Labs/Results
Orders:
Orders
02/26/25 18:56
Electrocardiogram (*1) Urgent
Reason for Study: Chest Pain
EKG- Treatment ONCE
02/26/25 19:00
CR Chest - 2 Views Urgent
Comment:
Reason For Exam: chest pain
02/26/25 19:13
CMP [Comprehensive Metabolic Panel] Urgent
Complete Blood Count/With Diff Urgent
Troponin I Urgent
02/26/25 23:22
D-Dimer Urgent
Prothrombin Time Urgent
Abnormal Lab Results
02/26/25 02/26/25
19:13 23:22
WBC 3.2 L 10^3/uL
(4.8-10.8)
RBC 4.45 L 10^6/uL
(4.70-6.10)
MCV 97.8 H fL
(80.0-94.0)
MCH 33.9 H pg
(27.0-31.0)
Plt Count 110 L 10^3/uL
(130-400)
MPV 10.5 H fL
(7.4-10.4)
Absolute Lymphs (auto) 1.0 L 10^3/uL
(1.2-3.4)
Monocytes % 19.6 H %
(1.7-9.3)
PT 23.9 H Sec
(11.4-14.6)
Glucose 120 H mg/dl
(70-99)
02/26/25 19:13
02/26/25 19:13
Vital Signs
Initial and Last Documented VS:
Initial Vital Signs
Temp Pulse Resp BP Pulse Ox
98.1 F 71 20 181/119 99
02/26/25 18:57 02/26/25 18:57 02/26/25 18:57 02/26/25 18:57 02/26/25 18:57
Last Documented Vital Signs
Temp Pulse Resp BP Pulse Ox
98.1 F 58 20 138/78 96
02/26/25 18:57 02/27/25 00:30 02/27/25 00:30 02/27/25 00:00 02/27/25 00:30
MDM/Problems Addressed
Differential Diagnosis Includes:
Concern for ACS, musculoskeletal chest pain, GERD, other consideration is PE especially in light of brief discontinuation of Coumadin prior to hernia repair January 20. Reassuring that he has been compliant with Coumadin since postop day 1, January 21.
Overall chest pain complaint is not consistent with ACS and reassuring that he has had no associated pleuritic pain, no shortness of breath, no coughing or fever.
Moderate hypertension noted initially, has improved to 140/73.
Labs thus far unremarkable showing mild but stable leukopenia, mild but stable thrombocytopenia. Chemistries are unremarkable. Troponin is negative.
EKG is unremarkable, unchanged from previous.
With reassuring EKG, negative troponin with chest pain since 3 PM, ACS is unlikely.
Chest x-ray unremarkable, clear lung bourgeois, normal heart size, unchanged from previous.
Will check PT/INR as well as D-dimer. If INR subtherapeutic or if D-dimer elevated will check CT of the chest/PE study.
Chronic conditions affecting care: CAD and Other (Prior history of PE 2018)
*Radiology
Radiology exam reviewed: preliminary read by ED provider (Chest x-ray is unremarkable, clear lung bourgeois, normal heart size. Unchanged from previous. Lumbar surgical screws.)
*Pulse Oximetry
Patient hypoxic: no
*EKG
Interpreted by ED Provider?: Yes
Interpretation: normal
Comparison EKG: no changes (Unchanged from previous)
Rate: normal
Rhythm: sinus
[place]: left axis deviation
Interval: normal interval
QRS Pattern: normal QRS
Ischemia: no ischemia
*Filter Pulp Washer Interpretation
Rate: normal
Interpretation: normal
Rhythm: sinus
*Critical Care Note
Total Time (30-74mins, 75-104mins- exclusive of procedures): Not Applicable
Update Note
Update Note:
00:40
INR is therapeutic at 2.13. D-dimer is negative.
Patient is quite eager to be discharged to home.
I suspect musculoskeletal chest pain versus GERD.
Recommend continuing current medications with plan for prompt follow-up with PCP as well as portfolio analyst.
Strict return precautions discussed.
ED Attending Note
-
Portions of this chart may have been created with voice recognition software.� Occasional wrong word or��sound alike� substitutions may have occurred due to the inherent limitations of voice recognition software.
Discharge Plan
Departure
Patient Disposition: Home (Routine Discharge)
Date of Disposition: 02/27/25
Time of Disposition: 00:41
Patient with high blood pressure during this ER visit?: No
Condition: Good
Discharge Problem:
nonspecific left sided chest pain
Instructions: Chest Pain CBC Follow Up
Prescriptions:
No Action
warfarin [Jantoven] 5 MG tablet
5 mg PO SUTUTHSA@1700
warfarin [Jantoven] 2.5 MG tablet
2.5 mg PO MOWEFR@1700
atorvastatin 10 mg Tablet
10 mg PO HS
Refresh Optive 0.5-0.9 % Drops
1 drp BOTH EYES BIDPRN PRN (Reason: dryness)
bismuth subsalicylate 525 mg/15 mL Suspension
525 mg PO DAILYPRN PRN (Reason: gerd)
famotidine 10 mg tablet
10 mg PO BID PRN (Reason: Acid Reflux Symptoms) Qty: 60 0RF
pantoprazole 40 MG tablet,delayed release (DR/EC)
40 mg PO DAILY Qty: 0 0RF
losartan 100 mg Tablet
100 mg PO HS
tramadol 50 mg tablet
25 - 50 mg PO Q6HPRN PRN (Reason: severe pain/breakthrough pain) Qty: 5 0RF
acetaminophen [Tylenol Extra Strength] 500 mg tablet
1,000 mg PO Q6HPRN PRN (Reason: mild pain) Qty: 1 0RF
polyethylene glycol 3350 [Miralax] 17 gram/dose powder
4 g PO DAILY PRN (Reason: Constipation) Qty: 119 0RF
Rx Instructions:
start a laxative such as MIRALAX on day 2 after surgery if no bowel movement yet as long as no nausea/vomiting and passing gas
Referrals:
Paul Desir MD [Family Provider] - Call in 1-3 days for appt
Interventions
Interventions:
*General Assessment Last Done: 02/26/25 18:57
ED- Cardiac Assessment Last Done: 02/26/25 23:55
Discharge Date and Time
Print Language: HONG K[place]
[2025-02-26 23:30] VITALS: BP 141/73
[2025-02-27] VITALS: BP 138/78
[2025-02-27 00:23] LABS: INR 2.13; PT 23.9 Sec (11.4-14.6)
[2025-02-27 00:40] LABS: D-Dimer < 0.27 ug/mlFEU (0.00-0.50)
== END 2025-02-27 00:54 | disposition home or self-care (01) ==
LOC: EMR 18:55
PROVIDERS: Emergency Medicine; EMERGENCY PHYSICIAN Emergency Medicine; FAMILY PHYSICIAN Family Medicine
DX: R07.89 Other chest pain (principal); I10 Essential (primary) hypertension; K21.9 Gastro-esophageal reflux disease without esophagitis; I25.10 Atherosclerotic heart disease of native coronary artery without angina pectoris; Z79.01 Long term (current) use of anticoagulants
CPT/HCPCS: 99285; 71046; 80053; 84484; 85025; 85379; 85610; 93005

== ENCOUNTER → 2025-06-25 10:01 | Outpatient (REF) | payer OTHER, SELFPAY | LOC: HWRCS 10:01 | PROVIDERS: ATTENDING PHYSICIAN Internal Medicine Cardiovascular Disease; FAMILY PHYSICIAN Family Medicine | DX: Z95.1 Presence of aortocoronary bypass graft (principal); I25.810 Atherosclerosis of coronary artery bypass graft(s) without angina pectoris; I49.8 Other specified cardiac arrhythmias; I77.810 Thoracic aortic ectasia | CPT/HCPCS: 93306 ==

== ENCOUNTER 2025-07-04 11:31 | Outpatient (RCR) | payer OTHER, SELFPAY | END 2025-07-04 23:59 | disposition home or self-care (01) | LOC: RPT 11:31 | PROVIDERS: ATTENDING PHYSICIAN Family Medicine | DX: R26.89 Other abnormalities of gait and mobility (principal); Z73.6 Limitation of activities due to disability; R20.0 Anesthesia of skin; M62.81 Muscle weakness (generalized) | CPT/HCPCS: 97110; 97162; 97530 ==

== ENCOUNTER 2025-08-07 10:45 | Outpatient (RCR) | payer OTHER, SELFPAY | END 2025-08-07 23:59 | disposition home or self-care (01) | LOC: RPT 10:45 | PROVIDERS: ATTENDING PHYSICIAN Family Medicine | DX: R26.89 Other abnormalities of gait and mobility (principal); Z73.6 Limitation of activities due to disability; R20.0 Anesthesia of skin; M62.81 Muscle weakness (generalized) | CPT/HCPCS: 97110; 97530 ==

== ENCOUNTER 2025-08-09 09:35 | Outpatient (RCR) | payer OTHER, SELFPAY | END 2025-08-09 15:41 | disposition home or self-care (01) | LOC: RPT 09:35 | PROVIDERS: ATTENDING PHYSICIAN Family Medicine | DX: R26.89 Other abnormalities of gait and mobility (principal); Z73.6 Limitation of activities due to disability; R20.0 Anesthesia of skin; M62.81 Muscle weakness (generalized) | CPT/HCPCS: 97110; 97530 ==

== ENCOUNTER → 2025-10-22 09:34 | Outpatient (REF) | payer OTHER, SELFPAY | LOC: RAD 09:34 | PROVIDERS: ATTENDING PHYSICIAN Otolaryngology Facial Plastic Surgery; FAMILY PHYSICIAN Family Medicine | DX: R13.12 Dysphagia, oropharyngeal phase (principal); R04.2 Hemoptysis | CPT/HCPCS: 74221 ==